=== PATIENT | female | born 1940 | race Caucasian/White ===

== ENCOUNTER → 2016-07-29 | Outpatient (CLI) | payer BC ==
[~2016-07-29] MED LIST: ACET-1138 PO; ASCA500 PO; ASPEC325 PO; CLB100 PO; EZET10TA38 PO; FRRG PO; HYDR12.55 PO; IPRA0.037 NAE; METO50TA7 PO; MULT-506 PO; NCYSR50 PO; RANI300T2 PO; RXC5 PO; TIMO0.2528 OPB
[2016-07-29 10:13] LABS: BASO % 1.1 %; BASO ABS # 0.05 K/uL (0-0.2); COMPLETE YES; EOS % 2.3 %; HEMATOCRIT 45.1 % (37-47); IG% 0.2 %; LYMPH % 38.9 %; LYMPH ABS # 1.83 K/uL (1.2-3.4); MEAN CELL VOLUME 92.4 fL (80-100); MEAN CORPUSCULAR HEMOGLOBIN 30.3 pg (25-34); MEAN CORPUSCULAR HGB CONC 32.8 g/dl (32-36); MEAN PLATELET VOLUME 10.1 fL (7.4-10.4); NEUT % 44.5 %; PLATELET COUNT 195 K/uL (130-400); RED BLOOD COUNT 4.88 M/uL (4.2-5.4); WHITE BLOOD COUNT 4.71 K/uL (4.8-10.8)
[2016-07-29 11:03] LABS: ALT/SGPT 24 U/L (12-78); AST/SGOT 19 U/L (15-37); BLOOD UREA NITROGEN 22 mg/dl (7-18); BUN/CREATININE RATIO 14.6 (10-20); CALCIUM 8.8 mg/dl (8.5-10.1); CARBON DIOXIDE 28 mmol/L (21-32); CHLORIDE 103 mmol/L (98-107); CHOLESTEROL 141 mg/dl (0-200); GLUCOSE 88 mg/dl (70-99); POTASSIUM 3.7 mmol/L (3.5-5.1); SODIUM 142 mmol/L (136-145)
[2016-07-29 11:14] LABS: CHOLESTEROL/HDL RATIO 2.4; HDL CHOLESTEROL 58 mg/dl; LDL CHOLESTEROL CALCULATED 61 mg/dl; TRIGLYCERIDES 108 mg/dl (0-150); VERY LOW DENSITY LIPOPROT CALC 22 mg/dl
== END | disposition home or self-care (01) ==
LOC: C.LAB1850 09:31
PROVIDERS: ATTEND Family Medicine
DX: I25.10 Atherosclerotic heart disease of native coronary artery without angina pectoris (principal); E78.00 Pure hypercholesterolemia, unspecified; N39.46 Mixed incontinence; I10 Essential (primary) hypertension

== ENCOUNTER → 2017-02-11 | Outpatient (CLI) | payer BC ==
[2017-02-11 10:33] LABS: ALT/SGPT 20 U/L (12-78); AST/SGOT 20 U/L (15-37); BLOOD UREA NITROGEN 26 mg/dl (7-18); CALCIUM 9.3 mg/dl (8.5-10.1); CARBON DIOXIDE 30 mmol/L (21-32); CHLORIDE 105 mmol/L (98-107); CHOLESTEROL 113 mg/dl (0-200); GLUCOSE 85 mg/dl (70-99); POTASSIUM 3.8 mmol/L (3.5-5.1); SODIUM 140 mmol/L (136-145)
[2017-02-11 10:36] LABS: CHOLESTEROL/HDL RATIO 2.5; HDL CHOLESTEROL 45 mg/dl; LDL CHOLESTEROL CALCULATED 42 mg/dl; TRIGLYCERIDES 131 mg/dl (0-150); VERY LOW DENSITY LIPOPROT CALC 26 mg/dl
== END | disposition home or self-care (01) ==
LOC: C.LAB1850 09:10
PROVIDERS: ATTEND Internal Medicine Cardiovascular Disease
DX: I25.10 Atherosclerotic heart disease of native coronary artery without angina pectoris (principal); E78.00 Pure hypercholesterolemia, unspecified; I10 Essential (primary) hypertension

== ENCOUNTER → 2017-08-12 | Outpatient (CLI) | payer BC ==
[~2017-08-12] MED LIST changes: -METO50TA7 PO; +METO50TA8 PO
[2017-08-12 12:30] LABS: ALT/SGPT 29 U/L (12-78); AST/SGOT 25 U/L (15-37); BLOOD UREA NITROGEN 20 mg/dl (7-18); CARBON DIOXIDE 27 mmol/L (21-32); CREATININE 1.35 mg/dl (0.60-1.20); GLUCOSE 102 mg/dl (70-99); POTASSIUM 3.9 mmol/L (3.5-5.1); SODIUM 140 mmol/L (136-145)
[2017-08-12 12:34] LABS: CHOLESTEROL 119 mg/dl (0-200); LDL CHOLESTEROL CALCULATED 48 mg/dl
== END | disposition home or self-care (01) ==
LOC: C.LAB1850 10:27
PROVIDERS: ATTEND Internal Medicine Cardiovascular Disease
DX: I25.10 Atherosclerotic heart disease of native coronary artery without angina pectoris (principal); N18.3 Chronic kidney disease, stage 3 (moderate)

== ENCOUNTER → 2017-10-30 | Outpatient (CLI) | payer BC ==
--- NOTE | 2017-10-30 15:51 | DIAGNOSTIC IMAGING REPORT ---
PA CHEST WITH ABDOMINAL SERIES CLINICAL HISTORY: Diarrhea. FINDINGS: A PA chest radiograph is compared to study dated 04/04/2015. Examination is degraded by apical lordotic positioning. The cardiomediastinal silhouette is unremarkable. The lungs and pleural spaces are clear. No pneumothorax is seen. The skeletal structures are osteopenic. The bony thorax is grossly intact. Supine and erect abdominal radiographs are obtained. No prior studies are available for comparison at the time of dictation. There is a nonobstructed abdominal bowel gas pattern. No evidence of intraperitoneal free air is seen. There are no abnormal abdominal calcifications. Phleboliths are noted in the pelvis and along the course of the left gonadal vein. There is moderate lumbosacral spondylosis. The lumbosacral spine and bony pelvis appear intact. IMPRESSION: 1. No active disease in the chest. 2. Nonobstructed abdominal bowel gas pattern. Electronically signed by: Ramon Carrion M.D. 10/30/2017 3:50 PM Dictated Date/Time: 10/30/2017 3:48 PM
[2017-10-30 16:44] LABS: BASO % 0.3 %; BASO ABS # 0.02 K/uL (0-0.2); EOS % 2.5 %; EOS ABS # 0.15 K/uL (0-0.5); HEMATOCRIT 43.7 % (37-47); HEMOGLOBIN 14.4 g/dL (12.0-16.0); IG# 0.01 K/uL (0.00-0.02); LYMPH % 27.1 %; LYMPH ABS # 1.64 K/uL (1.2-3.4); MEAN CELL VOLUME 92.6 fL (80-100); MEAN CORPUSCULAR HEMOGLOBIN 30.5 pg (25-34); MEAN PLATELET VOLUME 9.8 fL (7.4-10.4); MONO % 16.7 %; MONO ABS # 1.01 K/uL (0.11-0.59); NEUT % 53.2 %; NEUT ABS # 3.22 K/uL (1.4-6.5); PLATELET COUNT 184 K/uL (130-400); RED CELL DISTRIBUTION WIDTH SD 47.2 fL (36.4-46.3); WHITE BLOOD COUNT 6.05 K/uL (4.8-10.8)
[2017-10-30 17:14] LABS: ALBUMIN 3.5 gm/dl (3.4-5.0); ALT/SGPT 26 U/L (12-78); AST/SGOT 21 U/L (15-37); BLOOD UREA NITROGEN 19 mg/dl (7-18); CALCIUM 8.9 mg/dl (8.5-10.1); CARBON DIOXIDE 28 mmol/L (21-32); GLUCOSE 83 mg/dl (70-99); POTASSIUM 3.3 mmol/L (3.5-5.1); SODIUM 136 mmol/L (136-145)
[2017-10-30 17:17] LABS: ALKALINE PHOSPHATASE 93 U/L (45-117); TOTAL PROTEIN 7.5 gm/dl (6.4-8.2)
== END | disposition home or self-care (01) ==
LOC: C.LAB1850 15:04
PROVIDERS: ATTEND Nurse Practitioner Family
DX: R19.7 Diarrhea, unspecified (principal)

== ENCOUNTER → 2018-02-17 | Outpatient (CLI) | payer BC | END | disposition home or self-care (01) | LOC: C.LAB1850 08:57 | PROVIDERS: ATTEND Internal Medicine Cardiovascular Disease | DX: I25.10 Atherosclerotic heart disease of native coronary artery without angina pectoris (principal) ==

== ENCOUNTER 2019-03-22 17:42 | Inpatient (IN) ==
[2019-03-22] MEDS ORDERED: ONDANSETRON INJ 2 MG/ML 2 ML VIAL IV STA (18:24)
[2019-03-22] MEDS ORDERED: GI COCKTAIL ED USE PO ONE (18:24)
[2019-03-22] MEDS ORDERED: FAMOTIDINE 20 MG TAB PO ONE (18:24)
--- NOTE | 2019-03-22 18:34 | XRay Report ---
XR chest 1V portable HISTORY: 78 years-old Female Chest Pain acute atypical chest pain COMPARISON: Chest radiograph 06/02/2018 TECHNIQUE: Portable AP view of the chest FINDINGS: Cardiac silhouette is enlarged, unchanged. Mediastinal contours appear stable. No pneumothorax, pleur al effusion, focal airspace consolidation or overt pulmonary edema. Bones of the chest appear grossly intact. IMPRESSION: Cardiomegaly without acute process. The above report was generated using voice recognition software. It may contain grammatical, syntax o r spelling errors. Electronically signed by: Jim Castellanos M.D. 03/22/2019 6:33 PM
[2019-03-22 19:19] LABS: Basophils # (auto) 0.01 K/uL (0-0.2); Basophils % (auto) 0.1 %; Eosinophils # (auto) 0.03 K/uL (0-0.5); Eosinophils % (auto) 0.4 %; Hematocrit (blood only) 40.9 % (37-47); Hemoglobin 13.5 g/dL (12.0-16.0); Immature Granulocytes # (auto) 0.01 K/uL (0.00-0.02); Immature Granulocytes % (auto) 0.1 %; Lymphocytes # (auto) 0.84 K/uL (1.2-3.4); Lymphocytes % (auto) 10.4 %; Mean Corpuscular Hemoglobin 30.5 pg (25-34); Mean Corpuscular Volume 92.5 fL (80-100); Mean Platelet Volume 9.7 fL (7.4-10.4); Monocytes # (auto) 0.88 K/uL (0.11-0.59); Monocytes % (auto) 10.9 %; Neutrophils # (auto) 6.29 K/uL (1.4-6.5); Neutrophils % (auto) 78.1 %; Platelet Count 138 K/uL (130-400); RDW Coefficient of Variation 13.2 % (11.5-14.5); RDW Standard Deviation 44.4 fL (36.4-46.3); Red Blood Count 4.42 M/uL (4.2-5.4); White Blood Count 8.06 K/uL (4.8-10.8)
[2019-03-22 19:38] LABS: INR 1.1 (0.9-1.1); Partial Thromboplastin Ratio 0.9; Partial Thromboplastin Time 23.3 Seconds (21.0-31.0); Prothrombin Time 11.1 Seconds (9.0-12.0)
[2019-03-22 19:40] LABS: Alanine Aminotransferase 292 U/L (12-78); Albumin Level 3.4 gm/dl (3.4-5.0); Aspartate Aminotransferase 464 U/L (15-37); BUN Creatinine Ratio 18.2 (10-20); Blood Urea Nitrogen 23 mg/dl (7-18); Calcium 8.8 mg/dl (8.5-10.1); Carbon Dioxide 29 mmol/L (21-32); Chloride 106 mmol/L (98-107); Creatinine Clr Calc Pharmacy 34.2 ml/min; Est GFR (African American) 46.3; Est GFR (Non-African American) 39.9; Glucose 95 mg/dl (70-99); Potassium 3.9 mmol/L (3.5-5.1); Sodium 141 mmol/L (136-145)
[2019-03-22 19:45] LABS: Alkaline Phosphatase 208 U/L (45-117); Bilirubin,Total 1.7 mg/dl (0.2-1); Globulin 3.5 gm/dl (2.5-4.0); Lipase 12260 U/L (73-393); Total Protein 6.9 gm/dl (6.4-8.2); Troponin I < 0.015 ng/ml (0-0.045)
[2019-03-22] MEDS ORDERED: SODIUM CHLORIDE 0.9% 1000ML 500 ML IV ONE (19:51)
[2019-03-22] MEDS ORDERED: IOVERSOL 100ml IV PRN (20:06)
--- NOTE | 2019-03-22 20:29 | CT Scan Report ---
ABDOMEN AND PELVIS CT WITH IV CONTRAST CT DOSE: 903.74 mGy.cm HISTORY: Acute pancreatitis with nausea pancreatitis, elevated LFTs, nausea TECHNIQUE: Multiaxial CT images of the abdomen and pelvis were performed following the IV administrat ion of 90 cc of Optiray 320, A dose lowering technique was utilized adhering to the principles of [place]. COMPARISON STUDY: CTA of the chest 06/02/2018 FINDINGS: Minimal bibasilar atelectasis. No pneumatosis or pneumoperitoneum. The imaged inferior cardiac chambe rs appear unremarkable. Gallbladder is mildly distended. No cholelithiasis or choledocholithiasis andrea ntified. No biliary or pancreatic ductal dilation identified. The liver, spleen and adrenal glands ar e unremarkable. Mild generalized pancreatic atrophy. Interstitial and peripancreatic edema is noted, greatest about the pancreatic head and neck distribution there is homogeneous enhancement of the panc reas without evidence of pancreatic necrosis or acute peripancreatic fluid collection. Edema/mild bria e fluid tracks along the proximal duodenum, likely reactive. No pancreatic mass lesion identified. Mild cortical thinning of the bilateral kidneys with a few scattered bilateral renal cysts. No renal calculi or hydronephrosis. Urinary bladder is unremarkable. Prominence of the endometrium measures up to 8 mm, greatest in the fundal distribution. No adnexal mass lesion. Calcified plaque of the aorta without aneurysm. No adenopathy. Small hiatal hernia. No bowel obstruction. Colonic diverticulosis wi thout acute diverticulitis. Mild to moderate fecal retention. Normal appendix. Soft tissues are unrem arkable. Degenerative changes of the pelvis, spine and hips. IMPRESSION: 1. Findings compatible with acute uncomplicated pancreatitis. No evidence of pancreatic necrosis or a cute peripancreatic fluid collection. 2. Mild edema/free fluid tracking along the proximal duodenum is likely on a reactive basis. 3. Mild gallbladder distention without cholelithiasis or biliary ductal dilation identified. 4. Colonic diverticulosis without acute diverticulitis. 5. Mild thickening of the endometrium could be correlated with hysteroscopy if of further clinical co ncern. 6. Additional findings as above. Electronically signed by: Jim Castellanos M.D. 03/22/2019 8:28 PM
[2019-03-22] MEDS ORDERED: SODIUM CHLORIDE 0.9% 500 ML IV SCH (20:45)
--- NOTE | 2019-03-22 21:30 | History & Physical Report ---
Date of Service March 22, 2019 Assessment & Plan (1) Pancreatitis: Patient with acute uncomplicated pancreatitis, Lipase = 73448. Patient afebrile, hemodynamically stable. No history of EtOH use. Patient with elevated Tbili and AP as well as LFTs -Check MRCP -Consult GI -Check Lipid panel in AM -Repeat LFTs in AM -LR at 250 mL/hr x 2 liters then 125mL/hr -Morphine PRN -Zofran PRN Present on Admission?: Yes (2) Hypertension: Blood pressure elevated at present -Pain control as above -Continue Toprol -Continue to monitor Present on Admission?: Yes (3) Hypercholesterolemia: Chronic. -Check Lipids in AM -Hold Atorvastatin for now Present on Admission?: Yes (4) CAD (coronary artery disease): Patient denies chest pain -Hold ASA for now for possible ERCP -Hold Statin for now d/t elevated LFTs -Continue Toprol Present on Admission?: Yes (5) Acid reflux: Chronic -Continue Ranitidine Present on Admission?: Yes (6) CKD (chronic kidney disease) stage 3, GFR 30-59 ml/min: BUN and Cr at baseline -Continue to monitor BUN/Cr and electrolytes -Monitor I/Os for adequate UOP F/E/N - Aggressive fluid resuscitation with LR as above, monitor electrolytes and replete as needed, Ca WNL, NPOfor now Ppx - SCDs Code - Full per discussion with patient Dispo - Admit to medical floor Present on Admission?: Yes History of Present Illness Chief Complaint: Abdominal pain Primary Care Provider: Radha Asher MD Ciera Aguirre is a pleasant 78yo C female with history of HTN, HLP, CAD, GERD and CKD presenting with acute pancreatitis. Patient states that her symptoms began acutely at 13:00 as she was driving home from the grocery store. Pain severe, 9/10, epigastric in nature with band-like radiation and through to the back. Associated with nausea and one episode of non-bloody/non-bilious emesis. Patient took a Nitro at home with no relief. Rare EtOH intake. No history of gallstones but has family history of gallbladder disease. Patient had a brief illness last week with nausea/vomiting and diarrhea followed by constipation. Patient also complaining of dark urine and light colored stools as well as itching. No additional complaints at this time. ER Course: Dimasx, Pepcid, Zofran, NSS Allergies Allergy/AdvReac Type Severity Reaction Status Date / Time No Known Allergies Allergy Unknown Verified 03/22/19 19:17 Home Medications Home Medications Medication Instructions Recorded Confirmed Type atorvastatin [Lipitor] 20 mg PO HS 03/23/18 03/22/19 History celecoxib [Celebrex] 200 mg PO QAM 03/23/18 03/22/19 History metoprolol succinate [Toprol XL] 50 mg PO QAM 03/23/18 03/22/19 History solifenacin [Vesicare] 5 mg PO QAM 03/23/18 03/22/19 History timolol 1 drp OPHTHALMIC (EYE) BID 03/23/18 03/22/19 History meclizine 12.5 mg PO TID PRN #20 tab 06/02/18 03/22/19 Rx multivitamin tablet 1 tab PO DAILY 02/17/19 03/22/19 History ranitidine 150 mg capsule 150 mg PO BID cap 02/17/19 03/22/19 History aspirin 81 mg tablet,delayed 81 mg PO QPM #30 tab 03/08/19 03/22/19 History release acetaminophen 1,000 mg PO Q8 PRN 03/22/19 03/22/19 History ipratropium bromide 1 spray INTRANASAL DAILY PRN 03/22/19 03/22/19 History Past Med/Surg History Medical History Bradycardia CHRONIC/ASYMPTOMATIC ON BETA BRADY; BASELINE HR 40'S-50'S CAD (coronary artery disease) NON-OBSTRUCTIVE CKD (chronic kidney disease) STAGE III GERD (gastroesophageal reflux disease) CONTROLLED Glaucoma Hiatal hernia Hx of myocardial infarction 1995- [employer]ICAL [employer] Hyperlipidemia Hypertension Obesity Osteoarthritis Surgical History History of total knee replacement LEFT TKA= 04/11/15= SAB X 2 ATTEMPTS L4/L5 U/S ASSIST + PNB AT [facility] Hx of cardiac cath 1995= NO STENT Hx of colonoscopy Hx of dilation and curettage Hx of oral surgery S/P TEETH EXTRACTIONS Hx of tonsillectomy Hx of tubal ligation Family History Grandmother Family history of diabetes mellitus Father Myocardial infarction Cancer lung cancer Brother Myocardial infarction Cancer bladder CA Other Family hx of colon cancer Social History Preferred Language: [place] Communication Ability: Effective 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 Beliefs That Will Affect Care: None Current Living Situation: Alone Feels Safe at Home: Yes Smoking Status: Never smoker Hx Alcohol Use: Yes Alcohol type: wine Hx Substance Use: No Review of Systems Review of Systems: All systems reviewed & are unremarkable except as noted in HPI & below Physical Exam Physical Exam: General: patient resting comfortably, NAD, non-toxic in appearance, AA&O x 4 Skin: warm, dry, intact, no rashes or lesions, no jaundice HEENT: NC/AT, PERRL, EOMI, anicteric sclera, conjunctiva without injection, external ear normal to inspection and nontender, nares patent, slightly dry mucus membranes, dentition intact, no oropharyngeal lesions, neck supple, trachea midline, no LAD, no thyromegaly, no JVD Heart: +S1/S2, regular, no m/r/g Lungs: equal air entry bilaterally, no rales/rhonchi/wheezes Abd: +BS, soft, tender in RUQ and epigastric area with voluntary guarding, ND, no masses/organomegaly/ascites Ext: warm, 2+ pulses in UE/LE bilaterally, no clubbing/cyanosis or edema Neuro: nonfocal, speech intact, no facial droop, moving all extremities on command with equal strength 5/5 Results & Data Vital Signs (Past 12 Hours) Vital Signs Temp Pulse Pulse Resp BP BP Pulse Ox 03/22/19 20:22 65 12 178/70 H 97 03/22/19 19:34 58 L 18 145/88 H 97 03/22/19 17:45 36.8 C 54 L 18 161/69 H 96 Laboratory Results Lab Results 03/22/19 03/22/19 03/22/19 Range/Units 19:12 19:12 19:12 WBC 8.06 (4.8-10.8) K/uL RBC 4.42 (4.2-5.4) M/uL Hgb 13.5 (12.0-16.0) g/dL Hct 40.9 (37-47) % MCV 92.5 (80-100) fL MCH 30.5 (25-34) pg MCHC 33.0 (32-36) g/dL RDW Std Deviation 44.4 (36.4-46.3) fL RDW Coeff of Valorie 13.2 (11.5-14.5) % Plt Count 138 (130-400) K/uL MPV 9.7 (7.4-10.4) fL Immature Gran % (Auto) 0.1 % Neut % (Auto) 78.1 % Lymph % (Auto) 10.4 % [place] % (Auto) 10.9 % Eos % (Auto) 0.4 % Baso % (Auto) 0.1 % Immature Gran # (Auto) 0.01 (0.00-0.02) K/uL Neut # (Auto) 6.29 (1.4-6.5) K/uL Lymph # (Auto) 0.84 L (1.2-3.4) K/uL [place] # (Auto) 0.88 H (0.11-0.59) K/uL Eos # (Auto) 0.03 (0-0.5) K/uL Baso # (Auto) 0.01 (0-0.2) K/uL PT 11.1 (9.0-12.0) Seconds INR 1.1 (0.9-1.1) APTT 23.3 (21.0-31.0) Seconds PTT Ratio 0.9 Sodium 141 (136-145) mmol/L Potassium 3.9 (3.5-5.1) mmol/L Chloride 106 (98-107) mmol/L Carbon Dioxide 29 (21-32) mmol/L Anion Gap 6.0 (3-11) BUN 23 H (7-18) mg/dl Creatinine 1.29 H (0.6-1.2) mg/dl Est Cr Clr Drug Dosing 34.2 ml/min Est GFR ( Amer) 46.3 Est GFR (Non-Af Amer) 39.9 BUN/Creatinine Ratio 18.2 (10-20) Glucose 95 (70-99) mg/dl Calcium 8.8 (8.5-10.1) mg/dl Total Bilirubin 1.7 H (0.2-1) mg/dl AST 464 H (15-37) U/L ALT 292 H (12-78) U/L Alkaline Phosphatase 208 H (45-117) U/L Troponin I < 0.015 (0-0.045) ng/ml Total Protein 6.9 (6.4-8.2) gm/dl Albumin 3.4 (3.4-5.0) gm/dl Globulin 3.5 (2.5-4.0) gm/dl Albumin/Globulin Ratio 1.0 (0.9-2) Lipase 70623 H (73-393) U/L Diagnostic Findings ABDOMEN AND PELVIS CT WITH IV CONTRAST CT DOSE: 903.74 mGy.cm HISTORY: Acute pancreatitis with nausea pancreatitis, elevated LFTs, nausea TECHNIQUE: Multiaxial CT images of the abdomen and pelvis were performed following the IV administration of 90 cc of Optiray 320, A dose lowering technique was utilized adhering to the principles of ALARA. COMPARISON STUDY: CTA of the chest 06/02/2018 FINDINGS: Minimal bibasilar atelectasis. No pneumatosis or pneumoperitoneum. The imaged inferior cardiac chambers appear unremarkable. Gallbladder is mildly distended. No cholelithiasis or choledocholithiasis identified. No biliary or pancreatic ductal dilation identified. The liver, spleen and adrenal glands are unremarkable. Mild generalized pancreatic atrophy. Interstitial and peripancreatic edema is noted, greatest about the pancreatic head and neck distribution there is homogeneous enhancement of the pancreas without evidence of pancreatic necrosis or acute peripancreatic fluid collection. Edema/mild free fluid tracks along the proximal duodenum, likely reactive. No pancreatic mass lesion identified. Mild cortical thinning of the bilateral kidneys with a few scattered bilateral renal cysts. No renal calculi or hydronephrosis. Urinary bladder is unremarkable. Prominence of the endometrium measures up to 8 mm, greatest in the fundal distribution. No adnexal mass lesion. Calcified plaque of the aorta without aneurysm. No adenopathy. Small hiatal hernia. No bowel obstruction. Colonic diverticulosis without acute diverticulitis. Mild to moderate fecal retention. Normal appendix. Soft tissues are unremarkable. Degenerative changes of the pelvis, spine and hips. IMPRESSION: 1. Findings compatible with acute uncomplicated pancreatitis. No evidence of pancreatic necrosis or acute peripancreatic fluid collection. 2. Mild edema/free fluid tracking along the proximal duodenum is likely on a reactive basis. 3. Mild gallbladder distention without cholelithiasis or biliary ductal dilation identified. 4. Colonic diverticulosis without acute diverticulitis. 5. Mild thickening of the endometrium could be correlated with hysteroscopy if of further clinical concern. 6. Additional findings as above. Electronically signed by: Jim Castellanos M.D. 03/22/2019 8:28 PM Dictated: 03/22/192019 Transcribed: 03/22/192019 XR chest 1V portable HISTORY: 78 years-old Female Chest Pain acute atypical chest pain COMPARISON: Chest radiograph 06/02/2018 TECHNIQUE: Portable AP view of the chest FINDINGS: Cardiac silhouette is enlarged, unchanged. Mediastinal contours appear stable. No pneumothorax, pleural effusion, focal airspace consolidation or overt pulmonary edema. Bones of the chest appear grossly intact. IMPRESSION: Cardiomegaly without acute process. The above report was generated using voice recognition software. It may contain grammatical, syntax or spelling errors. Electronically signed by: Jim Castellanos M.D. 03/22/2019 6:33 PM Dictated: 03/22/19 183 Transcribed: 03/22/19 183 ECG Additional Comments: The study reveals SB at 50bpm, 1st degree AV block with [place] of 222, QRS=82, BXb=100, PACs, no evidence of acute ischemia Code Status & VTE Plan Code Status FULL VTE Prophylaxis Plan VTE Prophylaxis will be ordered: Yes PG Care Time/CCT Total # of Minutes Spent Total Time Spent with Patient: Total time spent is greater than 50% in coordination of care (as documented) at patient's floor/unit and/or counseling patient: (1) Pancreatitis Acute pancreatitis complication: unspecified Chronicity: acute Pancreatitis type: unspecified pancreatitis type Qualified Code(s): K85.90 - Acute pancreatitis without necrosis or infection, unspecified (2) Hypertension Hypertension type: essential hypertension Qualified Code(s): I10 - Essential (primary) hypertension (3) CAD (coronary artery disease) Coronary Disease-Associated Artery/Lesion type: [place] artery [place] vs. transplanted heart: [place] heart Associated angina: without angina Qualified Code(s): I25.10 - Atherosclerotic heart disease of [place] coronary artery without angina pectoris (4) Acid reflux Esophagitis presence: esophagitis presence not specified Qualified Code(s): K21.9 - Gastro-esophageal reflux disease without esophagitis
[2019-03-22] MEDS ORDERED: POLYETHYLENE (MIRALAX) 17 GM PACK PO PRN (22:33)
[2019-03-22] MEDS ORDERED: ONDANSETRON INJ 2 MG/ML 2 ML VIAL IV PRN (22:33)
[2019-03-22] MEDS ORDERED: LACTATED RINGER'S 1,000 ML IV SCH (22:33)
[2019-03-22] MEDS ORDERED: MoRPHine SULFATE 2 MG/ML CARP IV PRN (22:33)
[2019-03-22] MEDS ORDERED: DOCUSATE SODIUM 100 MG CAP PO PRN (22:33)
[2019-03-22] MEDS: VESICARE~ORDER AWAITING ACTION SCH (23:00)
[2019-03-22 23:10] LABS: Magnesium 1.8 mg/dl (1.8-2.4); Phosphorus 3.5 mg/dl (2.5-4.9)
[2019-03-22] MEDS: LACTATED RINGER'S 1,000 ML IV SCH (23:10)
--- NOTE | 2019-03-23 01:22 | Emergency Department Note ---
Entered by Chary Zapata acting as a scribe for Sameer Tucker MD History of Present Illness General Chief complaint: Chest Pain Stated complaint: CHEST PAINS Time Seen by Provider: 03/22/19 18:11 Source: patient History of Present Illness Onset (ago): hour(s) (0900 this morning) Location: chest (center) Radiation: non-radiation Pain Consistency: + constant and + other (worsening (when she took nitro)) Maximum Pain Intensity: 7 Quality: + other (chest pain) Exacerbated By: + movement Associated symptoms: + other (Positive nausea. Negative fever, vomiting, hx of b lood clots in her legs or lungs); no cough The patient is a 78 year old white female w/ PMHx CAD, CKD, glaucoma, hypercholesterolemia, HTN, anemia who presents to the ED w/ CC of chest pain beginning at 0900 this morning. She reports her chest pain is in the center of her chest without radiation and it is constant. She notes she took a nitro which worsened her pain and she became nauseous. She reports that moving worsens her pain. Pt denies a cough, fever, vomiting, hx of blood clots in her legs or lungs. She follows with Dr. Celis, Cardiology. Home Medications Home Medications Medication Instructions Recorded Confirmed Type atorvastatin [Lipitor] 20 mg PO HS 03/23/18 03/22/19 History celecoxib [Celebrex] 200 mg PO QAM 03/23/18 03/22/19 History metoprolol succinate [Toprol XL] 50 mg PO QAM 03/23/18 03/22/19 History solifenacin [Vesicare] 5 mg PO QAM 03/23/18 03/22/19 History timolol 1 drp OPHTHALMIC (EYE) BID 03/23/18 03/22/19 History meclizine 12.5 mg PO TID PRN #20 tab 06/02/18 03/22/19 Rx multivitamin tablet 1 tab PO DAILY 02/17/19 03/22/19 History ranitidine 150 mg capsule 150 mg PO BID cap 02/17/19 03/22/19 History aspirin 81 mg tablet,delayed 81 mg PO QPM #30 tab 03/08/19 03/22/19 History release acetaminophen 1,000 mg PO Q8 PRN 03/22/19 03/22/19 History ipratropium bromide 1 spray INTRANASAL DAILY PRN 03/22/19 03/22/19 History Allergies Allergy/AdvReac Type Severity Reaction Status Date / Time No Known Allergies Allergy Unknown Verified 03/22/19 19:17 Past Med/Surg History Medical History Bradycardia CHRONIC/ASYMPTOMATIC ON BETA BRADY; BASELINE HR 40'S-50'S CAD (coronary artery disease) NON-OBSTRUCTIVE CKD (chronic kidney disease) STAGE III GERD (gastroesophageal reflux disease) CONTROLLED Glaucoma Hiatal hernia Hx of myocardial infarction 1995- MEDICAL MANAGEMENT Hyperlipidemia Hypertension Obesity Osteoarthritis Surgical History History of total knee replacement LEFT TKA= 04/11/15= SAB X 2 ATTEMPTS L4/L5 U/S ASSIST + PNB AT [facility] Hx of cardiac cath 1995= NO STENT Hx of colonoscopy Hx of dilation and curettage Hx of oral surgery S/P TEETH EXTRACTIONS Hx of tonsillectomy Hx of tubal ligation Family History Grandmother Family history of diabetes mellitus Father Myocardial infarction Cancer lung cancer Brother Myocardial infarction Cancer bladder CA Other Family hx of colon cancer Social History Preferred Language: Citizen Of [place] Communication Ability: Effective Cord Splicer Required: No Beliefs That Will Affect Care: None Current Living Situation: Alone Feels Safe at Home: Yes Smoking Status: Never smoker Hx Alcohol Use: Yes Alcohol type: wine Hx Substance Use: No Review of Systems See HPI for pertinent positives & negatives. and A total of 10 systems reviewed and were otherwise negative Physical Exam Vital Signs Vital Signs - 24 hr 03/22/19 17:45 03/22/19 19:34 03/22/19 20:22 Temperature 36.8 C Temperature Source Oral Sepsis Recent Fever Within 48 Hours No Sepsis New/Unexplained Change in Mental Status No Sepsis Action Taken by Nursing No Action Required Pulse Rate 54 L 65 Pulse Rate [Apical] 58 L Pulse Rate from SpO2 Sensor 63 Respiratory Rate 18 18 12 Respiratory Effort / Characteristics Non-Labored Respiratory Depth Normal Blood Pressure 161/69 H 178/70 H Blood Pressure [Right Arm] 145/88 H Blood Pressure Mean 99 106 Blood Pressure Mean [Right Arm] 107 Pulse Oximetry 96 97 97 Oxygen Delivery Method Room Air Room Air Room Air GENERAL: Well appearing, well nourished, NAD, non-toxic. Wearing glasses EYE EXAM: Normal conjunctiva. PERRL, no anisocoria and EOM's grossly intact w/o pain. OROPHARYNX: Moist mucous membranes. Grossly normal dentition. NECK: Supple, no nuchal rigidity, no adenopathy, non-tender. No signs of meningismus. LUNGS: Clear to auscultation. Normal chest wall mechanics. HEART: NSR, no MRG. ABDOMEN: Abdomen soft, epigastric discomfort, normo-active bowel sounds, no masses, no rebound or guarding. BACK: No CVA TTP. SKIN: No rashes and no bruising. UPPER EXTREMITIES: Upper extremities are grossly normal. LOWER EXTREMITIES: No pitting edema. No calf pain. Negative Homans sign NEURO EXAM: A&O x3, cranial nerves II-XII grossly intact, normal speech, moves all 4 extremities on command w/o issue. Course 1813: Past medical records reviewed. The patient was evaluated in room A12. A complete history and physical exam was performed. 1933: I checked on the patient at this time. She just received her medications. 2047: Discussed the patient's case with Dr. Estrada, [facility] Hospitalist. The patient will be evaluated for further management. Administered Medications Lactated Ringer's (Lr) 1,000 mls @ 125 mls/hr IV .Q8H [facility] Stop: 03/23/19 14:59 Last Admin: 03/22/19 23:10 Dose: 125 mls/hr Documented by: [id number] Ioversol (Optiray 320 100ml) 90 ml IV ONCE PRN PRN Reason: Interaction Checking Stop: 03/26/19 20:05 Last Admin: 03/22/19 20:06 Dose: 90 ml Documented by: [id number] Miscellaneous (Order Awaiting Action) 1 ea N/A QS GREGG Stop: 04/21/19 22:59 Last Admin: 03/22/19 23:00 Dose: Not Given Documented by: [id number] Discontinued Medications Al Hydrox/Mg Hydrox/Simethicone () 1 dose PO ONE ONE Stop: 03/22/19 18:25 Last Admin: 03/22/19 19:29 Dose: 1 dose Documented by: [id number] Famotidine (Pepcid) 20 mg PO NOW ONE Stop: 03/22/19 18:25 Last Admin: 03/22/19 19:28 Dose: 20 mg Documented by: [id number] Sodium Chloride (Nss 1000ml) 500 mls @ 999 mls/hr IV .Q31M ONE Stop: 03/22/19 20:21 Last Infusion: 03/22/19 21:17 Dose: 0 mls/hr Documented by: [id number] Admin: 03/22/19 20:46 Dose: 999 mls/hr Documented by: [id number] Sodium Chloride (Nss) 500 mls @ 125 mls/hr IV .Q4H GREGG Stop: 04/21/19 20:44 Last Infusion: 03/22/19 23:01 Dose: 0 mls/hr Documented by: [id number] Admin: 03/22/19 22:05 Dose: 125 mls/hr Documented by: [id number] Ondansetron HCl (Zofran) 4 mg IV NOW STA Stop: 03/22/19 18:25 Last Admin: 03/22/19 19:26 Dose: 4 mg Documented by: [id number] Medical Decision Making Differential Diagnosis Differential diagnosis: Etiologies such as cardiac ischemia, aortic dissection, pulmonary embolism, pneumonia, pneumothorax, musculoskeletal, infections, pericarditis, myocarditis, esophageal rupture, gastrointestinal, as well as others were entertained. Medical Records Attestation: I reviewed the patient's medical records. Home Medications Current Medication List: was personally reviewed by me Laboratory Data Attestation: I reviewed the patient's lab results. Result diagrams: 03/22/19 19:12 03/22/19 19:12 Lab Results 03/22/19 03/22/19 03/22/19 Range/Units 19:12 19:12 19:12 WBC 8.06 (4.8-10.8) K/uL RBC 4.42 (4.2-5.4) M/uL Hgb 13.5 (12.0-16.0) g/dL Hct 40.9 (37-47) % MCV 92.5 (80-100) fL MCH 30.5 (25-34) pg MCHC 33.0 (32-36) g/dL RDW Std Deviation 44.4 (36.4-46.3) fL RDW Coeff of Valorie 13.2 (11.5-14.5) % Plt Count 138 (130-400) K/uL MPV 9.7 (7.4-10.4) fL Immature Gran % (Auto) 0.1 % Neut % (Auto) 78.1 % Lymph % (Auto) 10.4 % [place] % (Auto) 10.9 % Eos % (Auto) 0.4 % Baso % (Auto) 0.1 % Immature Gran # (Auto) 0.01 (0.00-0.02) K/uL Neut # (Auto) 6.29 (1.4-6.5) K/uL Lymph # (Auto) 0.84 L (1.2-3.4) K/uL [place] # (Auto) 0.88 H (0.11-0.59) K/uL Eos # (Auto) 0.03 (0-0.5) K/uL Baso # (Auto) 0.01 (0-0.2) K/uL PT 11.1 (9.0-12.0) Seconds INR 1.1 (0.9-1.1) APTT 23.3 (21.0-31.0) Seconds PTT Ratio 0.9 Sodium 141 (136-145) mmol/L Potassium 3.9 (3.5-5.1) mmol/L Chloride 106 (98-107) mmol/L Carbon Dioxide 29 (21-32) mmol/L Anion Gap 6.0 (3-11) BUN 23 H (7-18) mg/dl Creatinine 1.29 H (0.6-1.2) mg/dl Est Cr Clr Drug Dosing 34.2 ml/min Est GFR ( Amer) 46.3 Est GFR (Non-Af Amer) 39.9 BUN/Creatinine Ratio 18.2 (10-20) Glucose 95 (70-99) mg/dl Calcium 8.8 (8.5-10.1) mg/dl Phosphorus 3.5 (2.5-4.9) mg/dl Magnesium 1.8 (1.8-2.4) mg/dl Total Bilirubin 1.7 H (0.2-1) mg/dl AST 464 H (15-37) U/L ALT 292 H (12-78) U/L Alkaline Phosphatase 208 H (45-117) U/L Troponin I < 0.015 (0-0.045) ng/ml Total Protein 6.9 (6.4-8.2) gm/dl Albumin 3.4 (3.4-5.0) gm/dl Globulin 3.5 (2.5-4.0) gm/dl Albumin/Globulin Ratio 1.0 (0.9-2) Lipase 02026 H (73-393) U/L Imaging Data Radiologist's Impression: Radiology results as stated below per my review and the radiologist's interpretation: XR chest 1V portable HISTORY: 78 years-old Female Chest Pain acute atypical chest pain COMPARISON: Chest radiograph 06/02/2018 TECHNIQUE: Portable AP view of the chest FINDINGS: Cardiac silhouette is enlarged, unchanged. Mediastinal contours appear stable. No pneumothorax, pleural effusion, focal airspace consolidation or overt pulmonary edema. Bones of the chest appear grossly intact. IMPRESSION: Cardiomegaly without acute process. The above report was generated using voice recognition software. It may contain grammatical, syntax or spelling errors. Electronically signed by: Jim Castellanos M.D. 03/22/2019 6:33 PM ABDOMEN AND PELVIS CT WITH IV CONTRAST CT DOSE: 903.74 mGy.cm HISTORY: Acute pancreatitis with nausea pancreatitis, elevated LFTs, nausea TECHNIQUE: Multiaxial CT images of the abdomen and pelvis were performed following the IV administration of 90 cc of Optiray 320, A dose lowering technique was utilized adhering to the principles of ALARA. COMPARISON STUDY: CTA of the chest 06/02/2018 FINDINGS: Minimal bibasilar atelectasis. No pneumatosis or pneumoperitoneum. The imaged inferior cardiac chambers appear unremarkable. Gallbladder is mildly distended. No cholelithiasis or choledocholithiasis identified. No biliary or pancreatic ductal dilation identified. The liver, spleen and adrenal glands are unremarkable. Mild generalized pancreatic atrophy. Interstitial and peripancreatic edema is noted, greatest about the pancreatic head and neck distribution there is homogeneous enhancement of the pancreas without evidence of pancreatic necrosis or acute peripancreatic fluid collection. Edema/mild free fluid tracks along the proximal duodenum, likely reactive. No pancreatic mass lesion identified. Mild cortical thinning of the bilateral kidneys with a few scattered bilateral renal cysts. No renal calculi or hydronephrosis. Urinary bladder is unremarkable. Prominence of the endometrium measures up to 8 mm, greatest in the fundal distribution. No adnexal mass lesion. Calcified plaque of the aorta without aneurysm. No adenopathy. Small hiatal hernia. No bowel obstruction. Colonic diverticulosis without acute diverticulitis. Mild to moderate fecal retention. Normal appendix. Soft tissues are unremarkable. Degenerative changes of the pelvis, spine and hips. IMPRESSION: 1. Findings compatible with acute uncomplicated pancreatitis. No evidence of pancreatic necrosis or acute peripancreatic fluid collection. 2. Mild edema/free fluid tracking along the proximal duodenum is likely on a aishwarya ctive basis. 3. Mild gallbladder distention without cholelithiasis or biliary ductal dilation identified. 4. Colonic diverticulosis without acute diverticulitis. 5. Mild thickening of the endometrium could be correlated with hysteroscopy if of further clinical concern. 6. Additional findings as above. Electronically signed by: Jim Castellanos M.D. 03/22/2019 8:28 PM ECG Data Attestation: I personally reviewed and interpreted this ECG as follows: Indication: chest pain Rate (beats per minute): 50 Rhythm: sinus bradycardia Findings: + other (normal axis) and + 1st degree AV block; no acute ischemic change Blood Pressure Blood Pressure Findings: Elevated blood pressure Blood Pressure Disposition: further management by hospitalist MDM Narrative The patient is a 78 year old white female w/ PMHx CAD, CKD, glaucoma, hypercholesterolemia, HTN, anemia who presents to the ED w/ CC of chest pain beginning at 0900 this morning. Patient was seen and evaluated the bedside. Patient denies to see Dr. hood on a regular basis for known history of CAD GERD hypertension hyperlipidemia. The patient states that this began around 1 PM. It is been constant epigastric and unrelenting. The patient did have some nausea. The patient did try nitro but this only made it worse. Patient does not complain of exertional or positional changes. The patient denies any shortness of breath lower extremity swelling. Patient did a blood work completed along with an EKG troponin chest x-ray. Patient's EKG is unremarkable. Patient's LFTs concerning for elevated lipase and LFTs. Patient did have CT abdomen pelvis completed. The patient does have uncomplicated pancreatitis. I did speak with the on-call hospitalist who agreed to further evaluate treat the patient. Patient was made n.p.o. and started on fluids. Impression & Plan Pancreatitis, Abdominal pain Discharge Plan Visit Data *Final* Discharge Date/Time: 03/22/19 22:25 Chief Complaint: Chest Pain Stated Complaint: CHEST PAINS ED Provider: Sameer Tucker Discharge Problem: Pancreatitis, Abdominal pain Patient Disposition: Admitted As Inpatient Discharge Instructions Interventions: ED Discharge Assessment Last Done: 03/22/19 22:25 Discharge Problem: Pancreatitis Qualifiers: Chronicity: acute Pancreatitis type: unspecified pancreatitis type Acute pancreatitis complication: unspecified Qualified Code(s): K85.90 - Acute pancreatitis without necrosis or infection, unspecified Abdominal pain Qualifiers: Abdominal location: epigastric Qualified Code(s): R10.13 - Epigastric pain The scribe's documentation has been prepared under my direction and personally reviewed by me in its entirety. I confirm that the note above accurately reflects all work, treatment, procedures, and medical decision making performed by me.
[2019-03-23 06:23] LABS: Basophils # (auto) 0.01 K/uL (0-0.2); Basophils % (auto) 0.1 %; Hematocrit (blood only) 38.1 % (37-47); Hemoglobin 12.8 g/dL (12.0-16.0); Immature Granulocytes # (auto) 0.02 K/uL (0.00-0.02); Immature Granulocytes % (auto) 0.2 %; Lymphocytes # (auto) 1.17 K/uL (1.2-3.4); Lymphocytes % (auto) 13.4 %; Mean Corpuscular Hemoglobin 31.4 pg (25-34); Mean Corpuscular Hgb Conc 33.6 g/dL (32-36); Mean Corpuscular Volume 93.4 fL (80-100); Mean Platelet Volume 10.3 fL (7.4-10.4); Monocytes # (auto) 0.97 K/uL (0.11-0.59); Monocytes % (auto) 11.1 %; Neutrophils # (auto) 6.58 K/uL (1.4-6.5); Neutrophils % (auto) 75.2 %; Platelet Count 147 K/uL (130-400); RDW Coefficient of Variation 13.6 % (11.5-14.5); RDW Standard Deviation 46.2 fL (36.4-46.3); Red Blood Count 4.08 M/uL (4.2-5.4); White Blood Count 8.75 K/uL (4.8-10.8)
[2019-03-23 06:56] LABS: BUN Creatinine Ratio 15.7 (10-20); Calcium 8.9 mg/dl (8.5-10.1); Creatinine Clr Calc Pharmacy 34.8 ml/min; Est GFR (African American) 47.1; Est GFR (Non-African American) 40.7
--- NOTE | 2019-03-23 07:00 | Magnetic Resonance Report ---
MRCP CLINICAL HISTORY: ?gallstone pancreatitis TECHNIQUE: Utilizing a 1.5 Michelle magnet and dedicated coil, multiplanar, multiecho imaging of the [facility] abdomen was performed utilizing heavily T2 weighted pulsing sequences without IV contrast. COMPARISON STUDY: CT of the abdomen and pelvis March 22, 2019. FINDINGS: There is peripancreatic infiltration and fluid as well as fluid adjacent to the duodenum. T here is no biliary ductal dilatation. The common bile duct measures 6 mm in caliber. There is slight dilatation of the distal pancreatic duct which measures 4 mm in caliber. No common bile duct calculi are identified. No stones are identified within the gallbladder. The gallbladder is moderately disten ded. There is no pericholecystic fluid. No gallbladder wall thickening is identified on this examinat ion. Unenhanced images of the liver, spleen, adrenal glands and kidneys are unremarkable. There are b ilateral parapelvic cysts. The heart is enlarged. IMPRESSION: 1. Peripancreatic fluid and infiltration as well as fluid adjacent to the duodenum consistent with ac eduardo pancreatitis. 2. No biliary ductal dilatation. No common bile duct calculi. 3. Moderate gallbladder distention. No gallstones identified. Electronically signed by: Orlando Raygoza M.D. 03/23/2019 6:59 AM
[2019-03-23] MEDS ORDERED: INFLUENZA ADMINISTRATION CHARGE ONE (08:00)
[2019-03-23] MEDS ORDERED: INFLUENZA VIRUS QUAD VACCINE 0.5 ML SYR IM ONE (08:00)
[2019-03-23] MEDS: VESICARE~ORDER AWAITING ACTION SCH (08:06)
[2019-03-23] MEDS: LACTATED RINGER'S 1,000 ML IV SCH (08:24)
[2019-03-23] MEDS ORDERED: TIMOLOL MALEATE 0.5% OP SOLN 5 ML BTL OP SCH (09:00)
[2019-03-23] MEDS ORDERED: METOPROLOL SUCC 50MG EXT REL TAB PO SCH (09:00)
[2019-03-23 09:15] LABS: Bilirubin Direct 0.7 mg/dl (0-0.2); Bilirubin,Total 1.9 mg/dl (0.2-1); Total Protein 6.3 gm/dl (6.4-8.2)
--- NOTE | 2019-03-23 09:53 | Gastrointestinal Consultation ---
Date of Consultation March 23, 2019 Assessment & Plan (1) Pancreatitis: Pancreatitis seen on CT & MRCP without evidence of choledocholithiasis. Lipase 12,260. LFTs elevated to T bili of 1.7, AAST 464, ALT 292, Alk phos 208. Patient's symptoms are improving. No alcohol use. Recent viral infection. -Continue IV hydration with lactated ringers at 125 ml/hr -Follow LFTs -Check Triglycerides -Recommend early re-feeding when patient is able (low-fat, low-cholesterol diet) -Pain control per primary team -IV antiemetics if needed for nausea Thank you for allowing us to participate in the care of this patient. If you should have any further questions or concerns, do not hesitate to contact us at extension [phone] or [phone]. Present on Admission?: Yes Supervising Physician Co-Signing Physician Notes I personally evaluated the patient and agree with the findings as documented by Ana Paula Costa, [id number] Exam: abd: soft, mild epigastric tenderness, nd, no hsm History of Present Illness Attending Physician: Sadia Odell MD History of Present Illness Patient is a 78 yo female with anemia, CAD, CKD3, chronic constipation, chronic rhinitis, glaucoma, HLD, HTN, OA, bilateral SNHL, urinary incontinence and recent viral infection who presents to the hospital with abdominal pain. Lipase elevation is presently 12,260. CT & MRCP show pancreatitis without evidence of choledocholithiasis. LFTs are elevated with a T bili of 1.7, AST of 464, ALT 292, Alk phos 208. The patient was treated supportively, kept NPO, given IV fluids (LR), & pain medications. She reports resolution of her abdominal pain. She denies an appetite. She denies alcohol abuse. She has taken cholesterol medication for years. She denies family history of pancreatic issues. She denies fevers or chills at present. Overall, she is quite improved from the time of presentation. Allergies Allergy/AdvReac Type Severity Reaction Status Date / Time No Known Allergies Allergy Unknown Verified 03/22/19 19:17 Home Medications Home Medications Medication Instructions Recorded Confirmed Type atorvastatin [Lipitor] 20 mg PO HS 03/23/18 03/22/19 History celecoxib [Celebrex] 200 mg PO QAM 03/23/18 03/22/19 History metoprolol succinate [Toprol XL] 50 mg PO QAM 03/23/18 03/22/19 History solifenacin [Vesicare] 5 mg PO QAM 03/23/18 03/22/19 History timolol 1 drp OPHTHALMIC (EYE) BID 03/23/18 03/22/19 History meclizine 12.5 mg PO TID PRN #20 tab 06/02/18 03/22/19 Rx multivitamin tablet 1 tab PO DAILY 02/17/19 03/22/19 History ranitidine 150 mg capsule 150 mg PO BID cap 02/17/19 03/22/19 History aspirin 81 mg tablet,delayed 81 mg PO QPM #30 tab 03/08/19 03/22/19 History release acetaminophen 1,000 mg PO Q8 PRN 03/22/19 03/22/19 History ipratropium bromide 1 spray INTRANASAL DAILY PRN 03/22/19 03/22/19 History Patient History Medical History Bradycardia CHRONIC/ASYMPTOMATIC ON BETA BRADY; BASELINE HR 40'S-50'S CAD (coronary artery disease) NON-OBSTRUCTIVE CKD (chronic kidney disease) STAGE III GERD (gastroesophageal reflux disease) CONTROLLED Glaucoma Hiatal hernia Hx of myocardial infarction 1995- MEDICAL MANAGEMENT Hyperlipidemia Hypertension Obesity Osteoarthritis Surgical History History of total knee replacement LEFT TKA= 04/11/15= SAB X 2 ATTEMPTS L4/L5 U/S ASSIST + PNB AT [facility] Hx of cardiac cath 1995= NO STENT Hx of colonoscopy Hx of dilation and curettage Hx of oral surgery S/P TEETH EXTRACTIONS Hx of tonsillectomy Hx of tubal ligation Family History Grandmother Family history of diabetes mellitus Father Myocardial infarction Cancer lung cancer Brother Myocardial infarction Cancer bladder CA Other Family hx of colon cancer Social History Preferred Language: [place] Communication Ability: Effective Stable Manager Required: No Beliefs That Will Affect Care: None Current Living Situation: Alone Feels Safe at Home: Yes Smoking Status: Never smoker Hx Alcohol Use: Yes Alcohol type: wine Hx Substance Use: No Review of Systems Constitutional: no fever and no chills Eyes: no acute issues Ear, Nose, Mouth, Throat: no acute issues Respiratory: no cough and no dyspnea Cardiovascular: no chest pain Gastrointestinal: no abdominal pain, no bloating, no nausea and no vomiting decreased appetite Musculoskeletal: + joint pain Integumentary: no acute issues Neurologic: no dizziness Psychiatric: no acute complaints Endocrine: no fatigue Physical Exam Constitutional: WD/WN, vitals as above Eyes: PERRL, conjunctivae normal, anicteric sclerae ENMT: external ear and nose normal, oropharynx normal Neck: normal visual inspection Respiratory: normal respiratory effort, lungs clear to auscultation Cardiovascular: Rate/Rhythm: regular rate and regular rhythm Gastrointestinal (Abdomen): normal bowel sounds, soft, nontender, no hepatosplenomegaly Musculoskeletal: no cyanosis or clubbing Skin: no rashes, warm and dry Neurologic: normal speech Psychiatric: A+Ox3, euthymic affect Results & Data Vital Signs (Past 12 Hours) Vital Signs Temp Pulse Resp BP Pulse Ox 03/23/19 08:29 56 L 03/23/19 07:27 36.8 C 58 L 14 124/77 94 03/22/19 22:34 36.8 C 58 L 16 147/77 H 97 03/22/19 22:07 58 L 18 172/71 H 97 PG Care Time/CCT Total # of Minutes Spent Total Time Spent with Patient: Total time spent is greater than 50% in coordination of care (as documented) at patient's floor/unit and/or counseling patient: (1) Pancreatitis Acute pancreatitis complication: unspecified Chronicity: acute Pancreatitis type: unspecified pancreatitis type Qualified Code(s): K85.90 - Acute pancreatitis without necrosis or infection, unspecified
[2019-03-23] MEDS ORDERED: ACETAMINOPHEN 325 MG TAB PO STA (10:14)
[2019-03-23 10:45] LABS: Chol HDL Ratio 2; Cholesterol 104 mg/dl (0-200); HDL Cholesterol 48 mg/dl; LDL Cholesterol Calculated 46 mg/dl; Triglycerides 48 mg/dl (0-150); VLDL Cholesterol 10 mg/dl
--- NOTE | 2019-03-23 17:52 | Discharge Summary ---
Date of Service March 23, 2019 Admission HPI Per Admitting Provider Ciera Aguirre is a pleasant 78yo C female with history of HTN, HLP, CAD, GERD and CKD presenting with acute pancreatitis. Patient states that her symptoms began acutely at 13:00 as she was driving home from the grocery store. Pain severe, 9/10, epigastric in nature with band-like radiation and through to the back. Associated with nausea and one episode of non-bloody/non-bilious emesis. Patient took a Nitro at home with no relief. Rare EtOH intake. No history of gallstones but has family history of gallbladder disease. Patient had a brief illness last week with nausea/vomiting and diarrhea followed by constipation. Patient also complaining of dark urine and light colored stools as well as itching. No additional complaints at this time. ER Course: Maalox, Pepcid, Zofran, NSS Admission Exam Per Admitting Provider General: patient resting comfortably, NAD, non-toxic in appearance, AA&O x 4 Skin: warm, dry, intact, no rashes or lesions, no jaundice HEENT: NC/AT, PERRL, EOMI, anicteric sclera, conjunctiva without injection, external ear normal to inspection and nontender, nares patent, slightly dry mucus membranes, dentition intact, no oropharyngeal lesions, neck supple, trachea midline, no LAD, no thyromegaly, no JVD Heart: +S1/S2, regular, no m/r/g Lungs: equal air entry bilaterally, no rales/rhonchi/wheezes Abd: +BS, soft, tender in RUQ and epigastric area with voluntary guarding, ND, no masses/organomegaly/ascites Ext: warm, 2+ pulses in UE/LE bilaterally, no clubbing/cyanosis or edema Neuro: nonfocal, speech intact, no facial droop, moving all extremities on command with equal strength 5/5 Principal Diagnosis Acute pancreatitis Discharge Exam General: A&Ox3. NAD. Cooperative. HEENT: Atraumatic, normocephalic. Pulm: CTAB A&P. -wheezes, -rales, -rhonchi. Symmetrical chest rise. No increase in work of breathing. No respiratory distress. Cardiac: RRR, -mrg. Radial pulses intact and symmetrical. Abdominal: Nontender, nondistended, soft. BS present. Discharge Data Allergies Allergy/AdvReac Type Severity Reaction Status Date / Time No Known Allergies Allergy Unknown Verified 03/22/19 19:17 Consultations 03/22/19 20:43 ED Decision to Admit Stat 03/22/19 22:49 Consult Gastroenterology Routine Ordered Studies 03/22/19 19:48 CT abd pelvis IV con only Stat 03/23/19 00:13 MR MRCP Urgent Hospital Course (1) Pancreatitis: Ciera Aguirre is a 78-year-old female with a past medical history of coronary artery disease, chronic kidney disease stage III, anemia, hypertension, and sensorineural hearing loss of both ears who presented with 1 day of acute epigastric pain and who was admitted for acute pancreatitis. Acute pancreatitis 2/2 passed gallstone versus viral enteritis Patient presented with 1 day of sudden onset 9/10 epigastric pain with radiation through to the back and which was associated with nausea and one episode of nonbloody nonbilious emesis. She did not have any prior history of gallbladder or pancreatic disease. She had rare sporadic alcohol intake, and no history of hyperlipidemia. On admission she had a elevated lipase to > 12 K, increased transaminases, incr eased bilirubin, and increased alkaline phosphatase. She did not have a leukocytosis or fever. Abdominal and pelvic CT showed uncomplicated acute pancreatitis without evidence of pancreatic necrosis or peripancreatic fluid. She had some reactive duodenal edema/fluid. Mild gallbladder distention without cholelithiasis or biliary ductal dilation was identified. Follow-up MRCP showed peripancreatic fluid consistent with acute pancreatitis but no biliary ductal dilation, common duct calculi, or gallstones although did note moderate gallbladder distention without wall thickening. Patient was made n.p.o. and given lactated Ringer's IV fluid maintenance with morphine for pain control and Zofran for nausea. She did well overnight and had complete resolution of her symptoms by the next morning, and tolerated a regular diet well prior to discharge. Her gallbladder distention and metabolic profile raise suspicion for a gallstone which passed prior to imaging, however could also be due to viral infection. Her calcium was normal throughout admission. Her lipids were well controlled, further discussed below. No antibiotics were indicated. She was discharged to follow-up with her primary care physician, and was not in pain at time of discharge. She should have a repeat liver profile in 2 to 4 weeks to ensure normalization of her transaminases. Her atorvastatin was mistakenly listed as continued on discharge paperwork. She was contacted by phone and instructed to stop taking her atorvastatin until follow-up with her primary care physician and verification that her transaminases have normalized. Chronic kidney disease Patient has a history of chronic kidney disease stage III with a baseline creatinine which appeared to be approximately 1.3. Her creatinine was at basel ine on admission, and she did not show any signs of TESS. She had good urine output on day of discharge. No changes were made to her renal medications. Hypertension Patient has a history of hypertension treated with metoprolol. She was hypertensive on admit, hypertension improved with pain control. Her prior to admission metoprolol was continued throughout admission. Coronary artery disease with hypercholesterolemia Patient had a history of coronary artery disease and hyper cholesterolemia. Her atorvastatin was held due to increased LFTs, and her prior to admission aspirin was held in case ERCP was required. Her Toprol was continued as above. She had a lipid panel performed which showed good cholesterol control with cholesterol 104 LDL 46 HDL 48 and triglycerides 48. No change was made to her lipid medications, and this was felt to be unlikely to her acute pancreatitis. Acid reflux Ranitidine was continued for acid reflux. She did not have any signs or symptoms of acid reflux on day of discharge. DVT prophylaxis: SCDs were used for DVT prophylaxis. There is no increased suspicion for DVT or PE during admission. (2) CAD (coronary artery disease): (3) CKD (chronic kidney disease) stage 3, GFR 30-59 ml/min: (4) Acid reflux: (5) Anemia: (6) Abdominal pain: (7) History of colonic polyps: (8) Sensorineural hearing loss (SNHL) of both ears: (9) Hypertension: Total Time Total Time Spent Total Time Spent (In Minutes): 30 Discharge Plan Discharge Items Patient Disposition: Home - Self-Care Reason For Visit: PANCREATITIS Discharge Diagnosis: Pancreatitis Condition on Discharge: Good Activity: Per Instructions section Non-emergency contact: Primary Care Provider Call non-emergency contact if: your symptoms worsen Follow-up/Referrals: Radha Asher MD [Primary Care Provider] - 03/29/19 10:15 am (Please, follow up with Dr. Asher on FridayMarch 29 at 10:15 am. *If you need to change this appointment, call the office at [phone].) Diet: Low Fat Addtl Attending Provider Instructions: What is pancreatitis? Pancreatitis is a condition that can cause severe belly pain. The pancreas is an organ that makes hormones and juices that help break down food. Pancreatitis is the term for when this organ gets irritated or swollen. Most people get over pancreatitis without any long-lasting effects. But a few people get very sick. What causes pancreatitis? There are many causes of pancreatitis. But most cases are caused by gallstones. We checked you for gallstones, by a MRCP, at test that takes a picture of the gallbladder. This test came back negative. It is possible that your pancreatitis is secondary to recent viral illness. How do I treat pancreatitis? At the time of discharge you were tolerating a normal diet. We recommend that you eat a simple diet that is lower in fats and meats for at least one week. In addition, no alcohol. Drink water for hydration, at least 8-10, 8 ounce glasses. We also recommend following up with your primary care doctor within the next 5- 7 days. Pending Studies at Discharge: No Stand-Alone Forms: My [facility] Medications and DC Order Prescriptions: Continued multivitamin [One Daily Essential] tablet 1 tab PO DAILY RF: 0 aspirin 81 mg tablet,delayed release (DR/EC) 81 mg PO QPM Qty: 30 RF: 0 celecoxib [Celebrex] 200 mg Capsule 200 mg PO QAM RF: 0 atorvastatin [Lipitor] 20 mg Tablet 20 mg PO HS RF: 0 metoprolol succinate [Toprol XL] 50 mg Tablet Extended Release 24 Hr 50 mg PO QAM RF: 0 timolol 0.5 % Drops 1 drp OPHTHALMIC (EYE) BID RF: 0 solifenacin [Vesicare] 5 mg Tablet 5 mg PO QAM RF: 0 ranitidine HCl 150 mg capsule 150 mg PO BID RF: 0 meclizine 12.5 mg tablet 12.5 mg PO TID PRN (Reason: dizziness) Qty: 20 RF: 0 acetaminophen 500 mg Tablet 1,000 mg PO Q8 PRN (Reason: Pain) RF: 0 ipratropium bromide 0.03 % Kiefer,Non-Aerosol 1 spray INTRANASAL DAILY PRN (Reason: Nasal Congestion) RF: 0 Discharge Orders: Discharge Order (Routine); Ordered 03/23/19 Ordered By: Sukumar Edwards Admission Data Admit Date/Time: 03/22/19 21:27 Attending Provider: Sadia Odell Admit Provider: Meghna Estrada Primary Care Provider: Radha Asher Other Providers: Meghna Estrada ; Cristian Wayne ; Alyson Chapman ; Ana Paula Costa ; Molina Neves ; Sukumar Edwards Other Interventions: Discharge Summary Assessment (RN) Last Done: 03/23/19 15:50 DC Date/Time DO NOT enter until pt leaves facility: 03/23/19 16:10 Supervising Physician Co-Signing Physician Notes Resident Physician Supervision Note: I independently interviewed and examined the patient and verified the mckeon history and physical, reviewed labs and image studies, discussed the case with the resident Dr. Edwards and agree with the findings and care plan. Resident Activity Tracking Resident Involvement: Resident Care Provided Care Provided: Adult Hospital Medicine
== END 2019-03-23 16:10 | disposition home or self-care (01) | DRG 440 ==
LOC: ED 17:42 → 4W 21:27 → SUATTDRO 21:27 → 4W 22:25

== ENCOUNTER 2021-08-20 20:12 | Observation (INO) ==
--- NOTE | 2021-08-20 20:40 | Emergency Department Note ---
Impression & Plan Syncope, History of coronary artery bypass graft, Nausea ED Provider Note NAME: JANEL MALIK AGE: 80 SEX: F : 1940 ARRIVES VIA: Walk-In INFORMANT: Patient, ED PROVIDER(S): Sameer Tucker MD Chief Complaint: Syncope HPI: Patient presents after syncopal event that occurred just prior to arrival. Patient denies any head or neck pain but states that she had a wave of nausea, over in her which caused her to pass out. Patient denies any vomiting chest pains or shortness of breath. Patient denies any recent trauma and denies bowel or bladder incontinence. No reported seizure activity but this was unwitnessed. The patient denies any tongue biting. The patient has no prior history of seizure. Patient denies any focal weakness but does feel generalizability weak. Patient denies any slurred speech aphasia or facial droop. Patient does feel dizzy but denies any vertiginous symptoms. Patient states that this just occurred prior to arrival. The patient is unsure as to the total time that she syncopized. Patient feels slightly improved compared to prior but still feels weak and dizzy. Patient still has associated nausea. Patient is vaccinated for COVID-19 denies any alcohol tobacco or drug use. Patient states she has eaten and has some later drink today. The patient denies any history of diabetes. Patient does not take insulin. ROS: See HPI for pertinent positives and negatives. A total of 10 systems were reviewed and otherwise negative. Past medical history: See below Surgical history: See below Social history: See below Physical Exam: GENERAL: NAD, wearing a mask, non-toxic. EYE EXAM: Normal conjunctiva. PERRL, no anisocoria and EOM's grossly intact w/o pain. NECK: Supple, no nuchal rigidity, no adenopathy, non-tender. No signs of meningismus. LUNGS: Clear to auscultation. Normal chest wall mechanics. HEART: Bradycardic and regular, no MRG. ABDOMEN: Abdomen soft, non-tender, normo-active bowel sounds, no masses, no rebound or guarding. BACK: No CVA TTP. SKIN: No rashes and no bruising. UPPER EXTREMITIES: Upper extremities are grossly normal. LOWER EXTREMITIES: Grossly normal, no edema. NEURO EXAM: A&O x3, cranial nerves II-XII grossly intact, normal speech, moves all 4 extremities on command w/o issue. Differential diagnoses: Infection, dehydration, metabolic abnormality, hypo/hyperglycemia, electrolyte disturbance, anemia, hypoxia, cardiac sources, intracerebral event, toxicologic, neurologic, as well as other pathologies. Course: Patient was seen and evaluated the bedside. Full history physical exam was performed. EKG interpreted by me Sinus bradycardia with first-degree AV block, rate of 56, prolonged SD, normal QRS and normal axis, Q waves anteriorly. No obvious ST elevations or depressions. T wave flattening in aVL but no T WI. Q waves not may be new from comparison EKG completed March 22, 2019. Patient's bradycardia and first- degree AV block were present at that time. Imaging Studies: See Below Cardiac monitoring: An order was placed for continuous cardiac monitoring. The monitor shows a rate of 55 with bradycardic and regular rhythm. MDM: Patient was seen due to concern for syncopal event. BSG was obtained after her history and physical exam. This is normal at 98. Blood work was obtained along with an EKG troponin and chest x-ray. The patient was treated with IV fluids and antiemetics. Upon subsequent reassessment the patient states that she did feel improved. Patient may have new Q waves anteriorly. No obvious ST elevations or depressions.Patient has a normal white count H&H and platelet count. Covid negative. Blood work is fairly unremarkable. Troponin negative. Given the patient's syncope and history of CABG believe the patient would be best served with an observation and monitor on telemetry. I did speak with the on-call hospitalist Dr. Estrada and the patient was admitted to the medicine service. Past Med/Surg History Medical History Acid reflux Bradycardia CHRONIC/ASYMPTOMATIC ON BETA BRADY; BASELINE HR 40'S-50'S CAD (coronary artery disease) RCA 75% by cath 1996 Chronic constipation CKD (chronic kidney disease) STAGE III Environmental allergies GERD (gastroesophageal reflux disease) CONTROLLED Glaucoma Hiatal hernia Hx of myocardial infarction 1995- MEDICAL [employer]NAGEMENT Hyperlipidemia Hypertension Obesity Osteoarthritis Pancreatitis Paresthesia of lower extremity Sensorineural hearing loss (SNHL) of both ears Speech impairment PT REPORTS SOMETIMES HAS TROUBLE FINDING WORDS, STARTED 1 YR AGO - HAS DISCUSSED WITH PCP Spinal stenosis, 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 RCA 75%. Hx of colonoscopy Hx of dilation and curettage Hx of oral surgery S/P TEETH EXTRACTIONS Hx of tonsillectomy Hx of tubal ligation S/P laparoscopic cholecystectomy (06/09/19) Laparoscopic Cholecystectomy with Cholangiogram Dr. 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 And 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 Required: No Beliefs That Will Affect Care: None marital status: / Current Living Situation: Alone current occupational status: retired Other Information That Helps Us Care for You: No Feels Safe at Home: Yes Safety Concerns: Feels Safe At This Time Childhood Exposure to Second-Hand Smoke: No Dental Care, Regularly: No Physical Activity Frequency: 1-2 Times per Week Seatbelt Use: always Sunscreen Use: Yes Assistive Devices: Cane Allergies Allergies Allergy/AdvReac Type Severity Reaction Status Date / Time No Known Drug Allergies Allergy Verified 08/20/21 21:34 Home Meds Home Medications Medication Instructions Recorded Confirmed multivitamin (One Daily Essential) 1 tab PO DAILY 02/17/19 08/20/21 aspirin 81 mg tablet,delayed 81 mg PO QPM #30 tab 03/08/19 08/20/21 release nystatin-triamcinolone 100,000 1 appln TOP TID PRN gm 03/21/20 08/20/21 unit/g-0.1 % topical cream Previous Rx's Medication Instructions Recorded meclizine 12.5 mg tablet 12.5 mg PO TID PRN #20 tab 06/02/18 timolol 0.5 % eye drops 1 drp OPHTHALMIC (EYE) BID #45 ml 08/20/19 atorvastatin 20 mg tablet (Lipitor) 20 mg PO HS #90 tab 04/18/20 ipratropium bromide 21 mcg (0.03 1 spray INTRANASAL DAILY PRN #90 ml 12/12/20 %) nasal spray metoprolol succinate 50 mg 50 mg PO QAM #90 tab 03/06/21 tablet,extended release 24 hr (Toprol XL) celecoxib 200 mg capsule (Celebrex) 200 mg PO QAM #90 cap 04/10/21 famotidine 40 mg tablet 40 mg PO DAILY #90 tab 07/18/21 solifenacin 5 mg tablet (Vesicare) 5 mg PO QAM #90 tab 07/18/21 Results & Data (ED) Vital Signs Vital Signs - 24 hr 08/20/21 20:15 08/20/21 21:10 08/20/21 21:18 Temperature 35.7 C L Temperature Source Temporal Artery Scan Pulse Rate 58 L 58 L Pulse Rate [Finger] Pulse Rhythm Regular Pulse Rhythm [Finger] Respiratory Rate 20 Respiratory Effort / Characteristics Non-Labored Respiratory Depth Normal Blood Pressure 195/76 H Blood Pressure [Left Arm] Blood Pressure Mean 115 Blood Pressure Mean [Left Arm] Blood Pressure Position [Left Arm] Pulse Oximetry 96 98 99 Oxygen Delivery Method Room Air Room Air Room Air Oxygen Flow Rate 0 Sepsis Recent Fever Within 48 Hours No Sepsis New/Unexplained Change in Mental Status N/A Sepsis Action Taken by Nursing No Action Required 08/20/21 21:19 Temperature Temperature Source Pulse Rate Pulse Rate [Finger] 51 L Pulse Rhythm Pulse Rhythm [Finger] Regular Respiratory Rate 18 Respiratory Effort / Characteristics Non-Labored Respiratory Depth Normal Blood Pressure Blood Pressure [Left Arm] 136/78 Blood Pressure Mean Blood Pressure Mean [Left Arm] 97 Blood Pressure Position [Left Arm] Lying Pulse Oximetry 98 Oxygen Delivery Method Room Air Oxygen Flow Rate Sepsis Recent Fever Within 48 Hours Sepsis New/Unexplained Change in Mental Status Sepsis Action Taken by Detention Medications Current Medication List: was personally reviewed by me Laboratory Data Attestation: I reviewed the patient's lab results. Result diagrams: 08/21/21 03:24 08/21/21 03:24 Lab Results 08/20/21 08/20/21 08/20/21 Range/Units 20:52 21:07 21:19 WBC (4.8-10.8) K/uL RBC (4.2-5.4) M/uL Hgb (12.0-16.0) g/dL Hct (37-47) % MCV (80-100) fL MCH (25-34) pg MCHC (32-36) g/dL RDW Std Deviation (36.4-46.3) fL RDW Coeff of Valorie (11.5-14.5) % Plt Count (130-400) K/uL MPV (7.4-10.4) fL Immature Gran % (Auto) % Neut % (Auto) % Lymph % (Auto) % [place] % (Auto) % Eos % (Auto) % Baso % (Auto) % Neut # (Auto) (1.4-6.5) K/uL Lymph # (Auto) (1.2-3.4) K/uL [place] # (Auto) (0.11-0.59) K/uL Eos # (Auto) (0-0.5) K/uL Baso # (Auto) (0-0.2) K/uL Immature Gran # (Auto) (0.00-0.02) K/uL Sodium 142 (136-145) mmol/L Potassium 4.3 (3.5-5.1) mmol/L Chloride 108 H (98-107) mmol/L Carbon Dioxide 26 (21-32) mmol/L Anion Gap 8 (3-11) BUN 17 (6-23) mg/dl Creatinine 1.16 (0.6-1.2) mg/dl Est Cr Clr Drug Dosing 37.9 ml/min Est GFR ( Amer) 51.9 ml/min Est GFR (Non-Af Amer) 44.7 ml/min BUN/Creatinine Ratio 14.7 (10-20) Glucose 100 H (70-99(Fasting)) mg/dl POC Glucose 98 (70-99) mg/dl Calcium 9.5 (8.5-10.1) mg/dl Phosphorus 3.9 (2.5-4.9) mg/dl Magnesium 1.9 (1.7-2.4) mg/dl Total Bilirubin 0.8 (0.2-1.0) mg/dl AST 27 (13-39) U/L ALT 18 (7-52) U/L Alkaline Phosphatase 101 (34-104) U/L Troponin I < 0.03 (0-0.04) ng/ml Total Protein 7.4 (6.0-8.3) gm/dl Albumin 4.2 (3.4-5.0) gm/dl Globulin 3.2 (2.5-4.0) gm/dl Albumin/Globulin Ratio 1.3 (0.9-2) TSH (0.300-4.500) uIu/ml SARS-CoV-2, RNA, NAAT NEGATIVE (NEGATIVE) 08/20/21 08/20/21 Range/Units 21:19 21:19 WBC 8.08 (4.8-10.8) K/uL RBC 4.85 (4.2-5.4) M/uL Hgb 15.0 (12.0-16.0) g/dL Hct 46.0 (37-47) % MCV 94.8 (80-100) fL MCH 30.9 (25-34) pg MCHC 32.6 (32-36) g/dL RDW Std Deviation 48.3 H (36.4-46.3) fL RDW Coeff of Valorie 13.9 (11.5-14.5) % Plt Count 154 (130-400) K/uL MPV 10.3 (7.4-10.4) fL Immature Gran % (Auto) 0.6 % Neut % (Auto) 74.1 % Lymph % (Auto) 15.2 % [place] % (Auto) 8.8 % Eos % (Auto) 1.1 % Baso % (Auto) 0.2 % Neut # (Auto) 5.98 (1.4-6.5) K/uL Lymph # (Auto) 1.23 (1.2-3.4) K/uL [place] # (Auto) 0.71 H (0.11-0.59) K/uL Eos # (Auto) 0.09 (0-0.5) K/uL Baso # (Auto) 0.02 (0-0.2) K/uL Immature Gran # (Auto) 0.05 H (0.00-0.02) K/uL Sodium (136-145) mmol/L Potassium (3.5-5.1) mmol/L Chloride (98-107) mmol/L Carbon Dioxide (21-32) mmol/L Anion Gap (3-11) BUN (6-23) mg/dl Creatinine (0.6-1.2) mg/dl Est Cr Clr Drug Dosing ml/min Est GFR ( Amer) ml/min Est GFR (Non-Af Amer) ml/min BUN/Creatinine Ratio (10-20) Glucose (70-99(Fasting)) mg/dl POC Glucose (70-99) mg/dl Calcium (8.5-10.1) mg/dl Phosphorus (2.5-4.9) mg/dl Magnesium (1.7-2.4) mg/dl Total Bilirubin (0.2-1.0) mg/dl AST (13-39) U/L ALT (7-52) U/L Alkaline Phosphatase (34-104) U/L Troponin I (0-0.04) ng/ml Total Protein (6.0-8.3) gm/dl Albumin (3.4-5.0) gm/dl Globulin (2.5-4.0) gm/dl Albumin/Globulin Ratio (0.9-2) TSH 3.250 (0.300-4.500) uIu/ml SARS-CoV-2, RNA, NAAT (NEGATIVE) Administered Medications Celecoxib (Celebrex 200 Mg Cap) 200 mg PO QAM [facility] Stop: 09/20/21 08:59 Last Admin: 08/21/21 08:40 Dose: 200 mg Documented by: [id number] Famotidine (Famotidine 40 Mg Tablet) 40 mg PO DAILY [facility] Stop: 09/20/21 08:59 Last Admin: 08/21/21 08:40 Dose: 40 mg Documented by: [id number] Metoprolol Succinate (Metoprolol Succ 50mg Ext Rel Tab) 50 mg PO QAM [facility] Stop: 09/20/21 08:59 Last Admin: 08/21/21 08:39 Dose: 50 mg Documented by: [id number] Timolol Maleate (Timolol Maleate 0.5% Op Soln 5 Ml Btl) 1 drops OP BID [facility] Stop: 09/20/21 08:59 Last Admin: 08/21/21 08:39 Dose: 1 drops Documented by: [id number] Discontinued Medications Sodium Chloride (Nss 1000ml) 1,000 mls @ 999 mls/hr IV .Q1H1M [facility] Stop: 08/20/21 21:45 Last Infusion: 08/20/21 23:48 Dose: 0 mls/hr Documented by: [id number] Admin: 08/20/21 22:24 Dose: 999 mls/hr Documented by: [id number] Ondansetron HCl (Ondansetron Inj 2 Mg/Ml 2 Ml Vial) 4 mg IV NOW STA Stop: 08/20/21 22:29 Last Admin: 08/20/21 22:33 Dose: 4 mg Documented by: [id number] Imaging Data Radiologist's Impression: Chest X-Ray 08/20/21 21:16 XR chest 1V portable CLINICAL HISTORY: syncope COMPARISON STUDY: Chest radiograph March 22, 2019. FINDINGS: Lung volumes are normal. Lungs are clear. There is no pneumothorax or pleural effusion. Cardiomegaly is unchanged. Mediastinal contours are normal. There is no evidence for pulmonary edema. IMPRESSION: No acute cardiopulmonary findings. ACT 112: Negative or not required by law. Electronically signed by: Orlando Raygoza M.D. 08/21/2021 7:39 AM Discharge Plan Visit Data Chief Complaint: Syncope Stated Complaint: PASSED OUT / NAUSEA ED Provider: ANUPAMAED Discharge Problem: Syncope, History of coronary artery bypass graft, Nausea Patient Disposition: Admitted As Inpatient Discharge Instructions Interventions: ED Discharge Assessment Last Done: 08/21/21 02:58
[2021-08-20] MEDS ORDERED: SODIUM CHLORIDE 0.9% 1000ML 1,000 ML IV SCH (20:45)
[2021-08-20 22:02] LABS: Basophils # (auto) 0.02 K/uL (0-0.2); Basophils % (auto) 0.2 %; Eosinophils # (auto) 0.09 K/uL (0-0.5); Eosinophils % (auto) 1.1 %; Immature Granulocytes # (auto) 0.05 K/uL (0.00-0.02); Immature Granulocytes % (auto) 0.6 %; Lymphocytes # (auto) 1.23 K/uL (1.2-3.4); Lymphocytes % (auto) 15.2 %; Mean Corpuscular Hemoglobin 30.9 pg (25-34); Mean Corpuscular Hgb Conc 32.6 g/dL (32-36); Mean Corpuscular Volume 94.8 fL (80-100); Mean Platelet Volume 10.3 fL (7.4-10.4); Monocytes # (auto) 0.71 K/uL (0.11-0.59); Monocytes % (auto) 8.8 %; Neutrophils # (auto) 5.98 K/uL (1.4-6.5); Neutrophils % (auto) 74.1 %; Platelet Count 154 K/uL (130-400); RDW Coefficient of Variation 13.9 % (11.5-14.5); RDW Standard Deviation 48.3 fL (36.4-46.3); Red Blood Count 4.85 M/uL (4.2-5.4); White Blood Count 8.08 K/uL (4.8-10.8)
[2021-08-20 22:25] LABS: Troponin I < 0.03 ng/ml (0-0.04)
[2021-08-20 22:27] LABS: Alanine Aminotransferase 18 U/L (7-52); Albumin Globulin Ratio 1.3 (0.9-2); Albumin Level 4.2 gm/dl (3.4-5.0); Alkaline Phosphatase 101 U/L (34-104); Anion Gap 8 (3-11); Aspartate Aminotransferase 27 U/L (13-39); BUN Creatinine Ratio 14.7 (10-20); Bilirubin,Total 0.8 mg/dl (0.2-1.0); Blood Urea Nitrogen 17 mg/dl (6-23); Calcium 9.5 mg/dl (8.5-10.1); Carbon Dioxide 26 mmol/L (21-32); Chloride 108 mmol/L (98-107); Creatinine Clr Calc Pharmacy 37.9 ml/min; Est GFR (African American) 51.9 ml/min; Est GFR (Non-African American) 44.7 ml/min; Globulin 3.2 gm/dl (2.5-4.0); Glucose 100 mg/dl (70-99(Fasting)); Magnesium 1.9 mg/dl (1.7-2.4); Phosphorus 3.9 mg/dl (2.5-4.9); Potassium 4.3 mmol/L (3.5-5.1); Sodium 142 mmol/L (136-145); Total Protein 7.4 gm/dl (6.0-8.3)
[2021-08-20] MEDS ORDERED: ONDANSETRON INJ 2 MG/ML 2 ML VIAL IV STA (22:28)
--- NOTE | 2021-08-20 23:15 | History & Physical Report ---
Date of Service August 20, 2021 Assessment & Plan (1) Syncope: Plan: 80yo female with a history of HTN, HLD, CAD s/p CABG, CKD3, pancreatitis, GERD, spinal stenosis, and urinary incontinence presents after an unwitnessed syncopal episode. Syncope Patient with one syncopal episode at home without fall/injury with prodrome of nausea and weakness Symptoms likely secondary to vasovagal syncope, though differential includes cardiogenic syncope; CVA or neurogenic cause unlikely In ED, EKG: sinus bradycardia; symptoms improved s/p NSS 1L bolus and zofran IV 4mg x1 Given patient regained consciousness in the chair she had helped herself into, and head NCAT on exam, low suspicion for head trauma, will not order CT head at this time Troponin negative, CBC and BMP unremarkable, CXR without acute process Bradycardia noted on admission, though this appears to be chronic and stable Admit to med/surg telemetry Neuro check q shift Echo ordered Lipid profile, A1c, CBC, BMP in AM Consider adjusting home metoprolol Asymptomatic bacteriuria UA noted with bacteria, WBCs, leuk esterase, nitrite, some epithelial cells; no blood or protein Patient noted with chronic urinary incontinence though patient reports this is unchanged from baseline; no current/recent burning with urination or increased frequency No treatment indicated at this time HTN BP well-controlled on admission Continue metoprolol Bradycardia Appears to be chronic and stable; no concerns noted in patient's cardiology notes EKG: sinus bradycardia Continue home metoprolol for now, consider adjustment HLD, CAD s/p CABG (1996) Repeat lipid profile as above Continue home atorvastatin, ASA, metoprolol CKD3 Creatinine on admission 1.16 (baseline ~1.3) Trend daily BMP GERD Continue home famotidine Urinary incontinence Continue home solifenacin FEN: heart healthy diet Code status: full code DVT ppx: SCD's Held home meds: metoprolol PT/OT: ordered Dispo: med/surg telemetry History of Present Illness Chief Complaint: syncope Primary Care Provider: Radha Asher MD 80yo female with a history of HTN, HLD, CAD s/p CABG, CKD3, pancreatitis, GERD, spinal stenosis, and urinary incontinence presents after an unwitnessed syncopal episode. Patient was at home cooking dinner when she started to feel nauseous and lightheaded. Patient walked into another room and sat down in a chair. Patient then lost consciousness for an unknown amount of time; when she came to, she was still seated in the chair. Denies fall, denies any pain at this time. Patient notes her nausea and lightheadedness continued after the event. Patient came to the ED about one hour after the event. Patient notes she feels far better after receiving a liter of NSS in the ED. Patient denies current or recent fever, chills, vision changes, CP, SOB, vomiting, diarrhea, slurred speech, or other symptoms. Patient notes a history of urinary incontinence but reports her recent incontinence is no different from her baseline. Patient denies pain with urination or change in urinary frequency. Allergies Allergy/AdvReac Type Severity Reaction Status Date / Time No Known Drug Allergies Allergy Verified 08/20/21 21:34 Home Medications Medication Instructions Recorded Confirmed Type meclizine 12.5 mg tablet 12.5 mg PO TID PRN #20 tab 06/02/18 08/20/21 Rx multivitamin (One Daily Essential) 1 tab PO DAILY 02/17/19 08/20/21 History aspirin 81 mg tablet,delayed 81 mg PO QPM #30 tab 03/08/19 08/20/21 History release timolol 0.5 % eye drops 1 drp OPHTHALMIC (EYE) BID #45 ml 08/20/19 08/20/21 Rx nystatin-triamcinolone 100,000 1 appln TOP TID PRN gm 03/21/20 08/20/21 History unit/g-0.1 % topical cream atorvastatin 20 mg tablet (Lipitor) 20 mg PO HS #90 tab 04/18/20 08/20/21 Rx ipratropium bromide 21 mcg (0.03 1 spray INTRANASAL DAILY PRN #90 ml 12/12/20 08/20/21 Rx %) nasal spray metoprolol succinate 50 mg 50 mg PO QAM #90 tab 03/06/21 08/20/21 Rx tablet,extended release 24 hr (Toprol XL) celecoxib 200 mg capsule (Celebrex) 200 mg PO QAM #90 cap 04/10/21 08/20/21 Rx famotidine 40 mg tablet 40 mg PO DAILY #90 tab 07/18/21 08/20/21 Rx solifenacin 5 mg tablet (Vesicare) 5 mg PO QAM #90 tab 07/18/21 08/20/21 Rx Past Med/Surg History Medical History Acid reflux Bradycardia CHRONIC/ASYMPTOMATIC ON BETA CARROL; BASELINE HR 40'S-50'S CAD (coronary artery disease) RCA 75% by cath 1996 Chronic constipation CKD (chronic kidney disease) STAGE III Environmental allergies GERD (gastroesophageal reflux disease) CONTROLLED Glaucoma Hiatal hernia Hx of myocardial infarction 1995- [employer]ICAL [employer] Hyperlipidemia Hypertension Obesity Osteoarthritis Pancreatitis Paresthesia of lower extremity Sensorineural hearing loss (SNHL) of both ears Speech impairment PT REPORTS SOMETIMES HAS TROUBLE FINDING WORDS, STARTED 1 YR AGO - HAS DISCUSSED WITH PCP Spinal stenosis, 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 minimal AP diameter=3.58mm Urge and stress incontinence Surgical History History of anesthesia reaction VERTIGO WHEN TRYING TO COME OUT OF ANESTHESIA FOR R TKA ([facility]) "HARD TIME WAKING UP" WITH L TKA ([facility]--no record of any complications) History of total knee replacement LEFT TKA= 04/11/15= SAB X 2 ATTEMPTS L4/L5 U/S ASSIST + PNB AT [facility] History of total right knee replacement (TKR) Hx of cardiac cath 1996, NO STENT. RCA 75%. Hx of colonoscopy Hx of dilation and curettage Hx of oral surgery S/P TEETH EXTRACTIONS Hx of tonsillectomy Hx of tubal ligation S/P laparoscopic cholecystectomy (06/09/19) Laparoscopic Cholecystectomy with Cholangiogram Dr. 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 Chief Required: No Beliefs That Will Affect Care: None marital status: / Current Living Situation: Alone current occupational status: retired Other Information That Helps Us Care for You: No Feels Safe at Home: Yes Safety Concerns: Feels Safe At This Time Childhood Exposure to Second-Hand Smoke: No Dental Care, Regularly: No Physical Activity Frequency: 1-2 Times per Week Seatbelt Use: always Sunscreen Use: Yes Assistive Devices: Denture - Upper, Denture - Lower and Glasses Review of Systems Review of Systems: All systems reviewed & are unremarkable except as noted in HPI & below Physical Exam Physical Exam: Physical exam Gen: awake, comfortable-appearing, NAD HEENT: NCAT, MMM CV: bradycardic, regular rhythm, S1 and S2 noted, no murmur appreciated, extremities well-perfused, no LE edema Resp: CTABL, no increased WOB Abd: soft, nondistended, nontender, BS normoactive MSK: no CVA tenderness Neuro: AOx4, CN2-12 grossly intact, no focal deficit appreciated, strength 5/5 in all extremities Results & Data Results & Data ([facility]) Vital Signs (Past 12 Hours) Vital Signs Temp Pulse Pulse Resp BP BP Pulse Ox 08/20/21 21:19 51 L 18 136/78 98 08/20/21 21:18 99 08/20/21 21:10 58 L 98 08/20/21 20:15 35.7 C L 58 L 20 195/76 H 96 Laboratory Results Laboratory Results WBC 6.09 K/uL (4.8-10.8) 08/21/21 03:24 RBC 4.32 M/uL (4.2-5.4) 08/21/21 03:24 Hgb 13.3 g/dL (12.0-16.0) 08/21/21 03:24 Hct 41.1 % (37-47) 08/21/21 03:24 MCV 95.1 fL (80-100) 08/21/21 03:24 MCH 30.8 pg (25-34) 08/21/21 03:24 MCHC 32.4 g/dL (32-36) 08/21/21 03:24 RDW Std Deviation 48.2 fL (36.4-46.3) H 08/21/21 03:24 RDW Coeff of Valorie 14.0 % (11.5-14.5) 08/21/21 03:24 Plt Count 164 K/uL (130-400) 08/21/21 03:24 MPV 10.0 fL (7.4-10.4) 08/21/21 03:24 Immature Gran % (Auto) 0.3 % 08/21/21 03:24 Neut % (Auto) 68.4 % 08/21/21 03:24 Lymph % (Auto) 22.8 % 08/21/21 03:24 [place] % (Auto) 8.0 % 08/21/21 03:24 Eos % (Auto) 0.2 % 08/21/21 03:24 Baso % (Auto) 0.3 % 08/21/21 03:24 Neut # (Auto) 4.16 K/uL (1.4-6.5) 08/21/21 03:24 Lymph # (Auto) 1.39 K/uL (1.2-3.4) 08/21/21 03:24 [place] # (Auto) 0.49 K/uL (0.11-0.59) 08/21/21 03:24 Eos # (Auto) 0.01 K/uL (0-0.5) 08/21/21 03:24 Baso # (Auto) 0.02 K/uL (0-0.2) 08/21/21 03:24 Immature Gran # (Auto) 0.02 K/uL (0.00-0.02) 08/21/21 03:24 Sodium 141 mmol/L (136-145) 08/21/21 03:24 Potassium 4.4 mmol/L (3.5-5.1) 08/21/21 03:24 Chloride 111 mmol/L (98-107) H 08/21/21 03:24 Carbon Dioxide 24 mmol/L (21-32) 08/21/21 03:24 Anion Gap 6 (3-11) 08/21/21 03:24 BUN 16 mg/dl (6-23) 08/21/21 03:24 Creatinine 1.04 mg/dl (0.6-1.2) 08/21/21 03:24 Est Cr Clr Drug Dosing 42.3 ml/min 08/21/21 03:24 Est GFR ( Amer) 59.2 ml/min 08/21/21 03:24 Est GFR (Non-Af Amer) 51.1 ml/min 08/21/21 03:24 BUN/Creatinine Ratio 15.4 (10-20) 08/21/21 03:24 Glucose 105 mg/dl (70-99(Fasting)) H 08/21/21 03:24 POC Glucose 98 mg/dl (70-99) 08/20/21 20:52 Calcium 8.7 mg/dl (8.5-10.1) 08/21/21 03:24 Phosphorus 3.9 mg/dl (2.5-4.9) 08/20/21 21:19 Magnesium 1.9 mg/dl (1.7-2.4) 08/20/21 21:19 Total Bilirubin 0.8 mg/dl (0.2-1.0) 08/20/21 21:19 AST 27 U/L (13-39) 08/20/21 21:19 ALT 18 U/L (7-52) 08/20/21 21:19 Alkaline Phosphatase 101 U/L (34-104) 08/20/21 21:19 Troponin I < 0.03 ng/ml (0-0.04) 08/21/21 03:24 Total Protein 7.4 gm/dl (6.0-8.3) 08/20/21 21:19 Albumin 4.2 gm/dl (3.4-5.0) 08/20/21 21:19 Globulin 3.2 gm/dl (2.5-4.0) 08/20/21 21:19 Albumin/Globulin Ratio 1.3 (0.9-2) 08/20/21 21:19 Triglycerides 61 mg/dl (0-150) 08/21/21 03:24 Cholesterol 127 mg/dl (0-200) 08/21/21 03:24 LDL Cholesterol, Calc 74 mg/dl 08/21/21 03:24 VLDL Cholesterol, Calc 12 mg/dl (0-30) 08/21/21 03:24 HDL Cholesterol 41 mg/dl 08/21/21 03:24 Cholesterol/HDL Ratio 3.1 (0-5) 08/21/21 03:24 TSH 3.250 uIu/ml (0.300-4.500) 08/20/21 21:19 Urine Color Yellow 08/20/21 Unknown Urine Appearance Clear (Clear) 08/20/21 Unknown Urine pH 7.0 (4.5-7.5) 08/20/21 Unknown Ur Specific [place] 1.012 (1.000-1.030) 08/20/21 Unknown Urine Protein Negative (Negative) 08/20/21 Unknown Urine Glucose (UA) Negative (Negative) 08/20/21 Unknown Urine Ketones Negative (Negative) 08/20/21 Unknown Urine Blood Negative (Negative) 08/20/21 Unknown Urine Nitrite Positive (Negative) A 08/20/21 Unknown Urine Bilirubin Negative (Negative) 08/20/21 Unknown Urine Urobilinogen Negative (Negative) 08/20/21 Unknown Ur Leukocyte Esterase 2+ (Negative) H 08/20/21 Unknown Urine WBC (Auto) 10-30 /hpf (0-5) H 08/20/21 Unknown Urine RBC (Auto) 0-4 /hpf (0-4) 08/20/21 Unknown U Hyaline Cast (Auto) 0 /lpf (0-5) 08/20/21 Unknown U Epithel Cells (Auto) 5-10 /lpf (0-5) H 08/20/21 Unknown Urine Bacteria (Auto) 4+ (Negative) H 08/20/21 Unknown SARS-CoV-2, RNA, NAAT NEGATIVE (NEGATIVE) 08/20/21 21:07 Supervising Physician Co-Signing Physician Notes Patient seen and examined, chart reviewed, case discussed with Dr. Stahl and I agree with the assessment and plan as documented above. In brief, patient is a 80yo female with history of CAD presenting with syncope. Prodrome of dizziness, patient able to get to a chair. No head trauma. No CP/Palpitations/incontinence On exam she is afebrile, HD stable, bradycardic at baseline Skin- intact HEENT - NC/AT, PERRL, MMM, Neck supple, c-spine nontender, no carotid bruits Heart - +S1/S2, regular, bradycardic, no m/r/g Lungs - CTA Abd - +BS, soft, NT/ND Ext - warm, no edema Labs and images reviewed, Unremarkable Assessment/Plan 80yo female with history of CAD presenting after syncopal episode at home. -Telemetry monitoring -Check orthostatic VS -Check 2D echo -Do not think HR is playing a role - has had bradycardia on beta carrol therapy for quite a long time. No prior syncope, dizziness -Remainder as above Resident Activity Tracking Resident Involvement: Resident Care Provided and Agency Director Coverage Note Care Provided: Adult [facility] Medicine
[2021-08-20 23:38] LABS: Appearance Urine Clear (Clear); Bacteria Urine Automated 4+ (Negative); Bilirubin Urine Negative (Negative); Blood Urine Negative (Negative); Cast Urine Automated 0 /lpf (0-5); Color Urine Yellow; Glucose Urine UA Negative (Negative); Ketones Urine Negative (Negative); Leukocyte Esterase Urine 2+ (Negative); Nitrite Urine Positive (Negative); Protein Urine Negative (Negative); RBC Urine Automated 0-4 /hpf (0-4); Specific Gravity Urine 1.012 (1.000-1.030); Urobilinogen Urine Negative (Negative)
[2021-08-21] MEDS ORDERED: MECLIZINE 12.5 MG TAB PO PRN (03:04)
[2021-08-21] MEDS ORDERED: POLYETHYLENE (MIRALAX) 17 GM PACK PO PRN (03:04)
[2021-08-21] MEDS ORDERED: ACETAMINOPHEN 325 MG TAB PO PRN (03:04)
[2021-08-21 03:35] LABS: Basophils # (auto) 0.02 K/uL (0-0.2); Basophils % (auto) 0.3 %; Eosinophils # (auto) 0.01 K/uL (0-0.5); Eosinophils % (auto) 0.2 %; Hematocrit (blood only) 41.1 % (37-47); Hemoglobin 13.3 g/dL (12.0-16.0); Immature Granulocytes # (auto) 0.02 K/uL (0.00-0.02); Immature Granulocytes % (auto) 0.3 %; Lymphocytes # (auto) 1.39 K/uL (1.2-3.4); Lymphocytes % (auto) 22.8 %; Mean Corpuscular Hemoglobin 30.8 pg (25-34); Mean Corpuscular Hgb Conc 32.4 g/dL (32-36); Mean Corpuscular Volume 95.1 fL (80-100); Monocytes # (auto) 0.49 K/uL (0.11-0.59); Neutrophils # (auto) 4.16 K/uL (1.4-6.5); Neutrophils % (auto) 68.4 %; Platelet Count 164 K/uL (130-400); RDW Standard Deviation 48.2 fL (36.4-46.3); Red Blood Count 4.32 M/uL (4.2-5.4); White Blood Count 6.09 K/uL (4.8-10.8)
[2021-08-21 03:53] LABS: BUN Creatinine Ratio 15.4 (10-20); Calcium 8.7 mg/dl (8.5-10.1); Chol HDL Ratio 3.1 (0-5); Creatinine Clr Calc Pharmacy 42.3 ml/min; Est GFR (African American) 59.2 ml/min; Est GFR (Non-African American) 51.1 ml/min; Potassium 4.4 mmol/L (3.5-5.1)
--- NOTE | 2021-08-21 04:55 | Billing Data ---
Date of Service August 20, 2021 Coding Level of Care Code INT OBSERVATION CARE 50M LVL 2
[2021-08-21 07:08] LABS: Estimated Average Glucose 114 mg/dl; Hemoglobin A1C 5.6 % (4.5-5.6)
--- NOTE | 2021-08-21 07:40 | XRay Report ---
XR chest 1V portable CLINICAL HISTORY: syncope COMPARISON STUDY: Chest radiograph March 22, 2019. FINDINGS: Lung volumes are normal. Lungs are clear. There is no pneumothorax or pleural effusion. Car diomegaly is unchanged. Mediastinal contours are normal. There is no evidence for pulmonary edema. IMPRESSION: No acute cardiopulmonary findings. ACT 112: Negative or not required by law. Electronically signed by: Orlando Raygoza M.D. 08/21/2021 7:39 AM
--- NOTE | 2021-08-21 08:44 | Electrocardiogram Report ---
Test Reason : Blood Pressure : / mmHG Vent. Rate : 056 BPM Atrial Rate : 056 BPM P-R Int : 224 ms QRS Dur : 084 ms QT Int : 462 ms P-R-T Axes : 072 054 056 degrees QTc Int : 445 ms Sinus bradycardia with 1st degree A-V block Possible Anterior infarct , age undetermined Abnormal ECG When compared with ECG of 22-MAR-2019 17:53, Premature atrial complexes are no longer Present Confirmed by Kyaw Back ([id number]) on 08/21/2021 8:44:21 AM Referred By: REFERRED SELF Confirmed By:Zoltan Back
[2021-08-21] MEDS ORDERED: METOPROLOL SUCC 50MG EXT REL TAB PO SCH (09:00)
[2021-08-21] MEDS ORDERED: CeleBREX 200 MG CAP PO SCH (09:00)
[2021-08-21] MEDS ORDERED: TIMOLOL MALEATE 0.5% OP SOLN 5 ML BTL OP SCH (09:00)
[2021-08-21] MEDS ORDERED: FAMOTIDINE 40 MG TABLET PO SCH (09:00)
--- NOTE | 2021-08-21 09:25 | XCELERA ---
[id number]
--- NOTE | 2021-08-21 10:44 | Hospitalist Progress Note ---
Date of Service August 21, 2021 Assessment & Plan Admission and Anticipated Discharge Date Admission Date: August 20, 2021 Subjective No acute changes overnight. Feels "fine". She reports a mild sinus headache today that she is able to manage without pain meds. No dizziness, or nausea reported. Review of Systems Constitutional: no fever, no chills and no weakness Respiratory: no dyspnea Cardiovascular: no chest pain and no lightheadedness Gastrointestinal: no abdominal pain, no vomiting, no change in bowel habits and no diarrhea/loose stools Genitourinary: no dysuria and no flank pain Neurologic: + headache(s); no localized weakness and no dizziness Physical Exam Constitutional: WD/WN, vitals as above well developed and well nourished; no acute distress Eyes: PERRL, conjunctivae normal, anicteric sclerae EOM intact bilaterally ENMT: Ears: + hearing impairment Mouth: + dentures Respiratory: normal respiratory effort, lungs clear to auscultation Cardiovascular: RRR, no murmur, no edema Gastrointestinal (Abdomen): Inspection/Auscultation: normal bowel sounds Percussion/Palpation: abdomen soft Results & Data Results & Data ([facility]) Vital Signs (Past 12 Hours) Vital Signs Temp Pulse Resp BP Pulse Ox 08/21/21 08:00 36.9 C 65 18 176/79 H 98 08/21/21 03:12 36.8 C 49 L 19 158/78 H 97 08/21/21 01:06 52 L 20 171/78 H 92 08/20/21 23:48 67 18 166/73 H 97
--- NOTE | 2021-08-21 15:21 | Discharge Summary ---
Date of Service August 21, 2021 Admission HPI Per Admitting Provider 80yo female with a history of HTN, HLD, CAD s/p CABG, CKD3, pancreatitis, GERD, spinal stenosis, and urinary incontinence presents after an unwitnessed syncopal episode. Patient was at home cooking dinner when she started to feel nauseous and lightheaded. Patient walked into another room and sat down in a chair. Patient then lost consciousness for an unknown amount of time; when she came to, she was still seated in the chair. Denies fall, denies any pain at this time. Patient notes her nausea and lightheadedness continued after the event. Patient came to the ED about one hour after the event. Patient notes she feels far better after receiving a liter of NSS in the ED. Patient denies current or recent fever, chills, vision changes, CP, SOB, vomiting, diarrhea, slurred speech, or other symptoms. Patient notes a history of urinary incontinence but reports her recent incontinence is no different from her baseline. Patient denies pain with urination or change in urinary frequency. Principal Diagnosis Syncope Discharge Exam GENERAL: A&Ox3. NAD. HEENT: PERRL, EOMI. Moist mucous membranes. NECK: No JVD. No lymphadenopathy. No carotid bruits. CHEST/LUNGS: CTAB A/P. No crackles, wheezes, rales, rhonchi. HEART: RRR. No m/g/r. No carotid bruits. ABDOMEN: NT/ND, soft. BS+ x4 EXTREMITIES: No cyanosis, no clubbing, no edema SKIN: Warm and dry. No rashes or lesions. PSYCHIATRIC: Euthymic affect, no SI, no pressured speech, no hallucinations NEUROLOGIC: No FND. CN II-XII grossly intact. Discharge Data Allergies Allergy/AdvReac Type Severity Reaction Status Date / Time No Known Drug Allergies Allergy Verified 08/20/21 21:34 Consultations 08/20/21 22:26 ED Decision to Admit Stat Hospital Course (1) Syncope: 80yo female with a history of HTN, HLD, CAD s/p CABG, CKD3, pancreatitis, GERD, spinal stenosis, and urinary incontinence presents after an unwitnessed syncopal episode. Syncope Patient with one syncopal episode at home without fall/injury with prodrome of nausea and weakness Symptoms likely secondary to vasovagal syncope, though differential includes cardiogenic syncope; CVA or neurogenic cause unlikely Given patient regained consciousness in the chair she had helped herself into, and head NCAT on exam, low suspicion for head trauma -- CT head not necessary at this time In ED, EKG: sinus bradycardia; symptoms improved s/p NSS 1L bolus and zofran IV 4mg x1 Troponin negative, CBC and BMP unremarkable, CXR without acute process Bradycardia noted, though this appears to be chronic and stable Echo with normal LV function, no significant valvular issues Ordered 30-day event monitor -- recommend she f/u with Cardiology Can consider adjusting home metoprolol as an outpatient Asymptomatic bacteriuria UA noted with bacteria, WBCs, leuk esterase, nitrite, some epithelial cells; no blood or protein Patient noted with chronic urinary incontinence though patient reports this is unchanged from baseline With syncope of uncertain etiology, will treat UTI with Bactrim DS BID x5 days Recommend f/u with PCP HTN BP well-controlled on admission Continue metoprolol -- as above, can consider adjustment Bradycardia Appears to be chronic and stable; no concerns noted in patient's cardiology notes EKG: sinus bradycardia Continue home metoprolol for now, consider adjustment HLD, CAD s/p CABG (1996) Continue home atorvastatin, ASA, metoprolol CKD3 Creatinine on admission 1.16 (baseline ~1.3) GERD Continue home famotidine Urinary incontinence Continue home solifenacin Dispo: Home - self care, f/u with PCP and Cardiology Total Time Total Time Spent Total Time Spent (In Minutes): I spent 45 minutes in examination, reviewing records, orders, and documentation. Discharge Plan Discharge Items Patient Disposition: Home - Self-Care Reason For Visit: SYNCOPE Discharge Diagnosis: Syncope Activity: Per Instructions section Non-emergency contact: Primary Care Provider and Functional Tester Call non-emergency contact if: your symptoms worsen Follow-up/Referrals: Radha Asher MD [Primary Care Provider] - Diet: Heart Healthy Addtl Attending Provider Instructions: You were admitted to [facility] due to a single episode of syncope at home. You evaluation showed that you had overall normal cardiac labs and your echocardiogram showed no concerning findings for structural abnormalities that would be likely to cause loss of consciousness. As such, it is considered that the most likely cause of your loss of consciousness was vasovagal syncope, which is when your body has a reaction in which your heart beats too slowly or your blood vessels expand (or both). Vasovagal syncope can occur when you have stress from fear or pain, stand for too long or are over-tired or overheated, have an unusual reaction to urinating, coughing, or other body functions. Sometimes vasovagal syncope happens with no clear cause. However, the possibility of an arrhythmia cannot be fully ruled out at this time. You had cardiac monitoring and EKG done while admitted, which did not show any significant abnormalities. That being said, it will still be reasonable to rule out arrhythmias further. We will do this by ordering a 30-day monitor that will track your heart rate and identify any arrhythmias. This has been ordered for you and you will be contacted to receive the monitor. Please follow up with your PCP and Functional Tester for discussion of this hospitalization and review of the results of your monitor. We found that you likely have a urinary infection, which could potentially cause vasovagal syncope. We will treat you with bactrim twice daily for 5 days. This has been sent to your pharmacy. If you develop any sever symptoms such as chest pain, palpitations, further loss of consciousness, severe headaches, neurologic symptoms, or any symptoms that are concerning to you, please return to the hospital for further evaluation. Pending Studies at Discharge: No Stand-Alone Forms: [facility], Smoking Cessation Medications and DC Order Prescriptions: New sulfamethoxazole-trimethoprim [Bactrim DS] 800-160 mg tablet 1 tab PO BID 5 Days Qty: 10 RF: 0 Continued nystatin-triamcinolone 100,000-0.1 unit/g-% cream 1 appln TOP TID PRN (Reason: Skin Irritation) RF: 0 timolol 0.5 % drops 1 drp OPHTHALMIC (EYE) BID Qty: 45 RF: 1 atorvastatin [Lipitor] 20 mg tablet 20 mg PO HS Qty: 90 RF: 3 ipratropium bromide 21 mcg (0.03 %) spray,non-aerosol 1 spray INTRANASAL DAILY PRN (Reason: Nasal Congestion) Qty: 90 RF: 3 metoprolol succinate [Toprol XL] 50 mg tablet extended release 24 hr 50 mg PO QAM Qty: 90 RF: 1 celecoxib [Celebrex] 200 mg capsule 200 mg PO QAM Qty: 90 RF: 1 famotidine 40 mg tablet 40 mg PO DAILY Qty: 90 RF: 3 solifenacin [Vesicare] 5 mg tablet 5 mg PO QAM Qty: 90 RF: 1 multivitamin [One Daily Essential] tablet 1 tab PO DAILY RF: 0 aspirin 81 mg tablet,delayed release (DR/EC) 81 mg PO QPM Qty: 30 RF: 0 meclizine 12.5 mg tablet 12.5 mg PO TID PRN (Reason: dizziness) Qty: 20 RF: 0 Discharge Orders: Discharge Order (Routine); Ordered 08/21/21 Ordered By: Himanshu Rutledge Admission Data Admit Date/Time: 08/20/21 23:26 Attending Provider: Thor Harden Admit Provider: Sameer Stahl Primary Care Provider: Radha Asher Other Providers: Meghna Estrada Other Interventions: Discharge Summary Assessment (RN) Last Done: 08/21/21 16:04 Supervising Physician Co-Signing Physician Notes I also saw the patient with the medical student and resident physician and confirmed mckeon portions of the history and physical examination. Agree with the impression and plan as noted in discharge summary and as summarized below. Pleasant 80-year-old female with history of hypertension, CKD, CAD status post CABG who presents to the emergency department yesterday following an apparent syncopal episode. The patient states she was standing in her kitchen when she felt acutely dizzy, which was followed thereafter by mild nausea without emesis and some diaphoresis. The patient was able to walk to her sofa where she feels that she passed out for a period of time, which she cannot quite quantify. When she awoke, she felt anxious and dizzy. She was able to call her grandson who then brought her to the emergency department. Per family at bedside during today's exam, the grandson felt that the patient looked weak, but otherwise did not notice anything out of the ordinary. She denies any slurred speech or difficulty with mentation; well some generalized weakness, no focal deficits were appreciated. Upon examination this afternoon, the patient remains in the emergency department holding area. She has family at bedside. Other than some dizziness shortly after admission, she has been symptom-free. She was able to ambulate through the emergency department, unassisted, without any issues. She denies any chest pain or shortness of breath. Denies headache. Denies any blurred or double vision. Exam 144/78, 68, 18, 36.9, 90% room air Pleasant alert and oriented. Neck is supple. I did not appreciate a carotid bruit. Heart is regular, borderline bradycardic but this appears to be patient's norm. Lungs are clear with nonlabored respirations Extremities without edema or calf tenderness Data CBC is unremarkable. BUN 16, creatinine 1.04. Troponin less than 0.03. Triglycerides 61, total cholesterol 127, LDL 74, HDL 41. Imaging A chest x-ray dated 08/20/2021 shows no acute findings. Micro Urinalysis was positive for nitrites, 2+ leuk esterase, 10-30 WBC. Urine cultures pending Impression and Plan Vasovagal syncope Patient desires discharge home and that seems reasonable. Discussed with cardiology, recommendation for event monitor. This be arranged as an outpatient. She is a mild bradycardia, though this appears to be patient's baseline. She is on Toprol, but a reasonable dose. No adjustments made this hospitalization. Bacteriuria, question UTI Given the patient's presentation, will start empiric treatment for UTI pending urine culture We will follow up results and adjust if needed Additional per resident documentation Resident Activity Tracking Resident Involvement: Resident Care Provided Care Provided: Adult Hospital Medicine
[2021-08-21] MEDS ORDERED: ATORVASTATIN 20 MG TAB PO SCH (21:00)
[2021-08-21] MEDS ORDERED: ASPIRIN 81 MG ECTAB PO SCH (21:00)
== END 2021-08-21 17:27 | disposition home or self-care (01) ==
LOC: EDINP 20:12 → ED 20:12 → SUATTDRO 23:26 → EDINP 08-21 02:58

== ENCOUNTER 2022-11-05 19:55 | Observation (INO) ==
[2022-11-05] MEDS ORDERED: MECLIZINE HCL 25 MG TAB PO STA ×2 (20:08→21:55)
[2022-11-05] MEDS ORDERED: ONDANSETRON INJ 2 MG/ML 2 ML VIAL IV STA ×2 (20:08→21:20)
[2022-11-05] MEDS ORDERED: SODIUM CHLORIDE 0.9% 500 ML IV SCH (20:15)
--- NOTE | 2022-11-05 20:15 | Emergency Department Note ---
Impression & Plan Vertigo, Nausea, Bilateral tinnitus ED Provider Note Provider: Yaw Mcdermott MD DATE OF SERVICE: 11/05/2022 CHIEF COMPLAINT: Dizziness/vertigo HISTORY OF PRESENT ILLNESS: Patient is a 81-year-old female past medical history including CAD with CABG, CKD, SNHL, vasomotor rhinitis, and hypertension presenting here today via ambulance from [facility]. Patient was evidently at the store and had sudden onset of vertigo symptoms by report. States he felt very dizzy and nauseous. Denies falling. Denies bending over or turning quickly. Patient received Zofran and 1 mg of IV Ativan prior to arrival. Patient states she feels feels nauseous and dizzy. She is quite tired on exam. Denies chest pain or shortness of breath. Denies headache. Denies trauma. Denies recent URI symptoms. Patient with chronic tinnitus. PAST MEDICAL HISTORY: As noted above MEDICATIONS: Reviewed home medications SOCIAL HISTORY: PHYSICAL EXAM: GENERAL: alert to verbal stimuli in no acute distress on stretcher resting with eyes closed Head: normocephalic and atraumatic, no mastoid swelling EYES: No injection, discharge or icterus. PERRL, EOMI. NECK: Trachea midline. Supple. ENT: Mucous membranes pink and moist. TMs clear bilaterally without significant erythema or effusion LUNGS: Airway patent. No retractions. Breath sounds clear with good air entry bilaterally. HEART: Regular rate and rhythm. No chest wall tenderness ABDOMEN: Soft and non-tender, without guarding or rebound. SKIN: Acyanotic, warm, dry, without rashes EXTREMITIES: Without swelling, tenderness or deformity NEUROLOGICAL: No focal deficits and follows commands but somewhat drowsy. No significant aphasia or facial droop noted. Moves all extremities to commands. EK bpm sinus bradycardia with first-degree AV block. No PVC or PAC noted. No acute ST segment elevation or depression with a QTc of 442. CONTINUOUS CARDIAC MONITORING: was ordered and showed a heart rate of 40s-60s bpm in sinus bradycardia to sinus rhythm first-degree heart block Patient's laboratory studies and imaging reviewed. Differential includes Benign positional vertigo, dehydration, hypovolemia, anemia, tumor, infection, hypoglycemia, electrolyte abnormalities, cardiac sources, intracerebral event, toxicologic, neurologic, as well as other pathologies. IMPRESSION/MEDICAL DECISION MAKING: Patient reportedly with a history of vertigo. Drowsy and borderline hypoxic here likely related to the Ativan she was read just prior to arrival. No trauma history reported no evidence of trauma or person. No evidence of acute AOM. No significant infectious or recent URI or febrile illness reported doubt meningitis. Following commands without focal deficits. Benign abdomen. Denies headache or abdominal pain. Given her age however with her significant dizziness did complete a CT of the head. Has some underlying SNHL that may be contributing. Will order a dose of Antivert. Given some additional Zofran and IV fluid here. EKG shows some sinus bradycardia and has a history of similar in the past. Do not believe this is causing her symptoms. Denies palpitations or again chest pain on exam. Basic labs obtained to look for any significant laboratory abnormalities. Basic blood work here shows no significant anemia or leukocytosis. No severe electrolyte abnormality. Stable CKD. Negative COVID. CT of the head per r adiology without acute intracranial abnormality noted. Patient reassessment still with some nausea and given additional Zofran. Dizziness she states is improving some. Drowsiness is beginning to improve. We will trial the oral meclizine to see if she is able to tolerate it as she was in earlier given her nausea and vomiting. Son present states the patient's had some vertigo before but not as severe as this. Patient not able to stand for me here. Again do not see significant focal deficits and lower suspicion for CVA. In shared decision make with the patient and her son given the severity of her symptoms that are persistent and refractory to several medications significant effect this is having on her last the hospitalist to observe for further care. DIAGNOSIS: Vertigo, nausea DISPOSITION: Hospitalist will evaluate Patient was agreeable with this plan. Past Med/Surg History Medical History (Updated 11/06/22 @ 00:43 by Yaw Mcdermott M.D.) Acid reflux Bradycardia CHRONIC/ASYMPTOMATIC ON BETA BRADY; BASELINE HR 40'S-50'S CAD (coronary artery disease) RCA 75% by cath 1996 Chronic constipation CKD (chronic kidney disease) STAGE III Environmental allergies GERD (gastroesophageal reflux disease) CONTROLLED Glaucoma Hiatal hernia Hx of myocardial infarction 1995- [employer]ICAL [employer]NAG[employer] Hyperlipidemia Hypertension Obesity Osteoarthritis Pancreatitis Paresthesia of lower extremity Sensorineural hearing loss (SNHL) of both ears Speech impairment PT REPORTS SOMETIMES HAS TROUBLE FINDING WORDS, STARTED 1 YR AGO - HAS DISCUSSED WITH PCP Spinal stenosis, 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 minimal AP diameter=3.58mm Stage 3b chronic kidney disease Syncope Urge and stress incontinence Vitamin D deficiency Surgical History History of anesthesia reaction History of coronary artery bypass graft History of total knee replacement History of total right knee replacement (TKR) Hx of cardiac cath Hx of colonoscopy Hx of dilation and curettage Hx of oral surgery Hx of tonsillectomy Hx of tubal ligation S/P laparoscopic cholecystectomy (06/09/19) Family History Grandmother Family history of diabetes mellitus Father Myocardial infarction Cancer Brother Myocardial infarction Cancer Uncle Family hx of colon cancer Sister Breast cancer Other Heart disease Hypertension No family history of adverse response to anesthesia No family history of bleeding disorder Denies family history of Colon cancer Ovarian cancer Prostate cancer Social History (Updated 10/24/22 @ 13:53 by CATRACHITO Santos) Smoking Status: Unknown if ever smoked Second Hand Exposure: No; Do You Dip or Chew Tobacco: No; Hx Alcohol Use: Yes Alcohol type: wine Alcohol Intake Frequency: Monthly or Less Hx Substance Use: No Preferred Language: Swedish Communication Ability: Effective Communication Ability Comment: TROUBLE FINDING WORDS SOMETIMES/SEE MED HX NOTE Visual Impairment: No Limitations Hearing Ability: Hard of Hearing 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 Beliefs That Will Affect Care: None marital status: / Current Living Situation: Alone current occupational status: retired Feels Safe at Home: Yes Childhood Exposure to Second-Hand Smoke: No Diet: regular Dental Care, Regularly: No Physical Activity Frequency: 1-2 Times per Week Seatbelt Use: always Sunscreen Use: Yes Assistive Devices: Cane, Denture - Upper, Denture - Lower and Glasses Allergies Allergies Allergy/AdvReac Type Severity Reaction Status Date / Time No Known Drug Allergies Allergy Unknown Verified 11/05/22 20:03 Home Meds Home Medications Medication Instructions Recorded Confirmed multivitamin (One Daily Essential 1 tab PO DAILY 02/17/19 11/05/22 tablet) aspirin 81 mg tablet,delayed 81 mg PO QPM #30 tabs 03/08/19 11/05/22 release nystatin-triamcinolone 100,000 1 appln topical TID PRN Skin 03/21/20 11/05/22 unit/g-0.1 % topical cream Irritation Previous Rx's Medication Instructions Recorded timolol 0.5 % eye drops 1 drp ophthalmic (eye) BID #45 mL 08/20/19 atorvastatin 20 mg tablet (Lipitor) 20 mg PO HS #90 tabs 10/01/21 ipratropium bromide 21 mcg (0.03 1 spray intranasal DAILY PRN Nasal 11/20/21 %) nasal spray Congestion #90 mL fluticasone propionate 50 2 spray intranasal DAILY #15.8 01/22/22 mcg/actuation nasal grams spray,suspension mometasone 0.1 % topical cream 1 applic topical DAILY #15 grams 01/22/22 mupirocin 2 % topical ointment 1 applic topical BID #15 grams 01/22/22 solifenacin 10 mg tablet 10 mg PO QAM #90 tabs 04/08/22 celecoxib 200 mg capsule (Celebrex) 200 mg PO QAM #90 caps 05/30/22 metoprolol succinate 50 mg 50 mg PO QAM #90 tabs 05/30/22 tablet,extended release 24 hr (Toprol XL) albuterol sulfate 90 mcg/actuation 1 inh inhalation QID PRN shortness 07/29/22 aerosol inhaler of breath or wheezing #8.5 grams famotidine 40 mg tablet 40 mg PO BID #180 tabs 09/26/22 Results & Data (ED) Vital Signs Vital Signs - 24 hr 11/05/22 20:11 11/05/22 20:15 11/05/22 20:17 Temperature 36.4 C L Temperature Source Oral Pulse Rate 55 L Pulse Rate [Left Apical] 56 L Respiratory Rate 20 Blood Pressure Blood Pressure [Right Arm] 172/73 H Blood Pressure Mean Blood Pressure Mean [Right Arm] 106 Pulse Oximetry 88 L 96 Oxygen Delivery Method Nasal Cannula Nasal Cannula Oxygen Flow Rate 0 2 Sepsis Recent Fever Within 48 Hours Sepsis New/Unexplained Change in Mental Status Sepsis Action Taken by Nursing Oxygen Flow Rate - Titration 2 Pulse Oximetry Post Tiitration 94 11/05/22 19:46 11/05/22 20:08 11/05/22 20:30 Temperature Temperature Source Pulse Rate 45 L Pulse Rate [Left Apical] Respiratory Rate 21 Blood Pressure 175/79 H Blood Pressure [Right Arm] Blood Pressure Mean 111 Blood Pressure Mean [Right Arm] Pulse Oximetry 97 Oxygen Delivery Method Room Air Nasal Cannula Oxygen Flow Rate 2 Sepsis Recent Fever Within 48 Hours No Sepsis New/Unexplained Change in Mental Status No Sepsis Action Taken by Nursing No Action Required Oxygen Flow Rate - Titration Pulse Oximetry Post Tiitration 11/05/22 21:00 11/05/22 21:31 11/05/22 22:01 Temperature Temperature Source Pulse Rate 51 L 50 L 45 L Pulse Rate [Left Apical] Respiratory Rate 20 15 15 Blood Pressure 181/87 H 175/122 H 167/73 H Blood Pressure [Right Arm] Blood Pressure Mean 118 139 104 Blood Pressure Mean [Right Arm] Pulse Oximetry 98 100 100 Oxygen Delivery Method Nasal Cannula Nasal Cannula Nasal Cannula Oxygen Flow Rate 2 2 2 Sepsis Recent Fever Within 48 Hours Sepsis New/Unexplained Change in Mental Status Sepsis Action Taken by Nursing Oxygen Flow Rate - Titration Pulse Oximetry Post Tiitration 11/05/22 23:02 11/05/22 23:30 11/05/22 23:31 Temperature Temperature Source Pulse Rate 51 L 48 L 48 L Pulse Rate [Left Apical] Respiratory Rate 22 22 25 H Blood Pressure 132/92 173/58 H Blood Pressure [Right Arm] Blood Pressure Mean 105 96 Blood Pressure Mean [Right Arm] Pulse Oximetry 96 96 97 Oxygen Delivery Method Nasal Cannula Room Air Room Air Oxygen Flow Rate 2 Sepsis Recent Fever Within 48 Hours Sepsis New/Unexplained Change in Mental Status Sepsis Action Taken by Nursing Oxygen Flow Rate - Titration Pulse Oximetry Post Tiitration 11/06/22 00:00 11/06/22 00:01 Temperature Temperature Source Pulse Rate 45 L 44 L Pulse Rate [Left Apical] Respiratory Rate 17 22 Blood Pressure 132/83 Blood Pressure [Right Arm] Blood Pressure Mean 99 Blood Pressure Mean [Right Arm] Pulse Oximetry 94 95 Oxygen Delivery Method Room Air Room Air Oxygen Flow Rate Sepsis Recent Fever Within 48 Hours Sepsis New/Unexplained Change in Mental Status Sepsis Action Taken by Nursing Oxygen Flow Rate - Titration Pulse Oximetry Post Tiitration Laboratory Data 11/05/22 20:13 11/05/22 20:13 Lab Results 11/05/22 11/05/22 11/05/22 Range/Units 20:13 20:13 20:25 WBC 5.68 (4.8-10.8) K/ul RBC 4.35 (4.20-5.40) M/uL Hgb 13.4 (12.0-16.0) g/dl Hct 40.6 (37.0-47.0) % MCV 93.3 (80.0-100.0) fL MCH 30.8 (25.0-34.0) pg MCHC 33.0 (32.0-36.0) g/dL RDW Std Deviation 45.2 (36.4-46.3) fL RDW Coeff of Valorie 13.2 (11.5-14.5) % Plt Count 145 (130-400) K/uL MPV 10.3 (9.4-12.4) fL Immature Gran % (Auto) 1.6 % Neut % (Auto) 39.8 % Lymph % (Auto) 46.7 % [place] % (Auto) 9.2 % Eos % (Auto) 1.8 % Baso % (Auto) 0.9 % Neut # (Auto) 2.27 (1.40-6.50) K/uL Lymph # (Auto) 2.65 (1.2-3.4) K/uL [place] # (Auto) 0.52 (0.11-0.59) K/uL Eos # (Auto) 0.10 (0-0.50) K/uL Baso # (Auto) 0.05 (0-0.2) K/uL Immature Gran # (Auto) 0.09 (0.01-0.20) K/uL Sodium 140 (136-145) mmol/L Potassium 4.0 (3.5-5.1) mmol/L Chloride 107 (98-107) mmol/L Carbon Dioxide 24 (21-32) mmol/L Anion Gap 9 (3-11) BUN 21 (6-23) mg/dl Creatinine 1.33 H (0.6-1.2) mg/dl Est Cr Clr Drug Dosing 37.8 ml/min Est GFR ( Amer) 43.6 ml/min Est GFR (Non-Af Amer) 37.7 ml/min BUN/Creatinine Ratio 15.8 (10-20) Glucose 126 H (70-99(Fasting)) mg/dl Calcium 9.2 (8.6-10.3) mg/dl Total Bilirubin 1.2 H (0.2-1.0) mg/dl AST 22 (13-39) U/L ALT 13 (7-52) U/L Alkaline Phosphatase 87 (34-104) U/L Troponin I High Sens 10.1 (0-14) pg/ml Total Protein 6.8 (6.0-8.3) gm/dl Albumin 3.8 (3.4-5.0) gm/dl Globulin 3.0 (2.5-4.0) gm/dl Albumin/Globulin Ratio 1.3 (0.9-2) SARS-CoV-2, RNA, NAAT NEGATIVE (NEGATIVE) Administered Medications Discontinued Medications Acetaminophen (Acetaminophen 325 Mg Tab) 650 mg PO NOW STA Stop: 11/05/22 23:17 Last Admin: 11/05/22 23:34 Dose: 650 mg Documented By: RYAN Diphenhydramine HCl (Diphenhydramine Capsule 25 Mg Cap) 25 mg PO NOW ONE Stop: 11/05/22 23:17 Last Admin: 11/05/22 23:34 Dose: 25 mg Documented By: RYAN Sodium Chloride (Nss) 500 mls @ 999 mls/hr IV .Q31M GREGG Stop: 11/05/22 20:45 Last Infusion: 11/05/22 20:45 Dose: 0 mls/hr Documented By: Admin: 11/05/22 20:10 Dose: 999 mls/hr Documented By: MICHELLE Meclizine HCl (Meclizine Hcl 25 Mg Tab) 25 mg PO NOW STA Stop: 11/05/22 20:09 Last Admin: 11/05/22 20:47 Dose: Not Given Documented By: MICHELLE Meclizine HCl (Meclizine Hcl 25 Mg Tab) 25 mg PO NOW STA Stop: 11/05/22 21:56 Last Admin: 11/05/22 22:03 Dose: 25 mg Documented By: MICHELLE Ondansetron HCl (Ondansetron Inj 2 Mg/Ml 2 Ml Vial) 4 mg IV NOW STA Stop: 11/05/22 20:09 Last Admin: 11/05/22 20:22 Dose: 4 mg Documented By: MICHELLE Ondansetron HCl (Ondansetron Inj 2 Mg/Ml 2 Ml Vial) 4 mg IV NOW STA Stop: 11/05/22 21:21 Last Admin: 11/05/22 21:34 Dose: 4 mg Documented By: GIL Imaging Data Radiologist's Impression: Head CT 11/05/22 20:08 Exam(s): CT HEAD Without Contrast EXAM: CT Head Without Intravenous Contrast CLINICAL HISTORY: Reason for exam: dizzy. TECHNIQUE: Axial computed tomography images of the head/brain without intravenous contrast. CTDI is 37.95 mGy and DLP is 547.75 mGy-cm. Automated exposure control was utilized for the study. A dose lowering technique was utilized adhering to the principles of ALARA. COMPARISON: CT head on 06/02/2018 FINDINGS: Brain: No acute infarct or hemorrhage identified. No extra-axial fluid collection. No mass effect or midline shift. Scattered areas of hypoattenuation in the supratentorial white matter likely represent chronic small vessel ischemic changes. Ventricles and sulci: Prominence of the ventricles and sulci is likely secondary to cerebral volume loss. Bones: Normal. No bony lesion or acute fracture. Subcutaneous tissues: Normal. Sinuses: Mild mucosal thickening in the ethmoid air cells. Mastoid air cells: Normal. Orbits: Grossly unremarkable. Other: Atherosclerotic calcifications in the intracranial vasculature. IMPRESSION: 1. No acute intracranial abnormality. 2. Mild chronic small vessel ischemic changes and cerebral volume loss. Electronically signed by: Joann Scott M.D. 11/05/22 21:23 PM Discharge Plan Visit Data Chief Complaint: Vertigo ED Provider: Yaw Mcdermott Discharge Problem: Vertigo, Nausea, Bilateral tinnitus Patient Disposition: Being Evaluated by Hospitalist Discharge Instructions Interventions: ED Discharge Assessment Last Done: 11/06/22 00:09 Forms Stand Alone Forms: [facility] Prescriptions Prescriptions: No Action nystatin-triamcinolone 100,000-0.1 unit/g-% cream 1 appln TOP TID PRN (Reason: Skin Irritation) timolol 0.5 % drops 1 drp OPHTHALMIC (EYE) BID Qty: 45 1RF atorvastatin [Lipitor] 20 mg tablet 20 mg PO HS Qty: 90 3RF celecoxib [Celebrex] 200 mg capsule 200 mg PO QAM Qty: 90 1RF metoprolol succinate [Toprol XL] 50 mg tablet extended release 24 hr 50 mg PO QAM Qty: 90 1RF ipratropium bromide 21 mcg (0.03 %) spray,non-aerosol 1 spray INTRANASAL DAILY PRN (Reason: Nasal Congestion) Qty: 90 11RF fluticasone propionate 50 mcg/actuation spray,suspension 2 spray intranasal DAILY Qty: 15.8 6RF Rx Instructions: administer into each nostril mupirocin 2 % ointment 1 applic topical BID Qty: 15 1RF Rx Instructions: Apply small amount to the internal rim of the nostril qhs x 2 weeks then PRN bleeding mometasone 0.1 % cream 1 applic topical DAILY Qty: 15 1RF Rx Instructions: Apply a small amount to the external ear 1-2 x per week PRN itchy or dry ears. solifenacin 10 mg tablet 10 mg PO QAM Qty: 90 3RF multivitamin [One Daily Essential] tablet 1 tab PO DAILY aspirin 81 mg tablet,delayed release (DR/EC) 81 mg PO QPM Qty: 30 famotidine 40 mg tablet 40 mg PO BID Qty: 180 1RF albuterol sulfate 90 mcg/actuation HFA aerosol inhaler 1 inh inhalation QID PRN (Reason: shortness of breath or wheezing) Qty: 8.5 0RF Referrals Referrals: Radha Asher MD [Primary Care Provider] -
[2022-11-05 20:34] LABS: Basophils # (auto) 0.05 K/uL (0-0.2); Basophils % (auto) 0.9 %; Eosinophils % (auto) 1.8 %; Hematocrit (blood only) 40.6 % (37.0-47.0); Hemoglobin 13.4 g/dl (12.0-16.0); Immature Granulocytes # (auto) 0.09 K/uL (0.01-0.20); Immature Granulocytes % (auto) 1.6 %; Lymphocytes # (auto) 2.65 K/uL (1.2-3.4); Lymphocytes % (auto) 46.7 %; Mean Corpuscular Hemoglobin 30.8 pg (25.0-34.0); Mean Corpuscular Volume 93.3 fL (80.0-100.0); Mean Platelet Volume 10.3 fL (9.4-12.4); Monocytes # (auto) 0.52 K/uL (0.11-0.59); Monocytes % (auto) 9.2 %; Neutrophils # (auto) 2.27 K/uL (1.40-6.50); Neutrophils % (auto) 39.8 %; Platelet Count 145 K/uL (130-400); RDW Coefficient of Variation 13.2 % (11.5-14.5); RDW Standard Deviation 45.2 fL (36.4-46.3); Red Blood Count 4.35 M/uL (4.20-5.40); White Blood Count 5.68 K/ul (4.8-10.8)
[2022-11-05 20:47] LABS: Albumin Globulin Ratio 1.3 (0.9-2); Albumin Level 3.8 gm/dl (3.4-5.0); BUN Creatinine Ratio 15.8 (10-20); Bilirubin,Total 1.2 mg/dl (0.2-1.0); Calcium 9.2 mg/dl (8.6-10.3); Creatinine Clr Calc Pharmacy 37.8 ml/min; Est GFR (African American) 43.6 ml/min; Est GFR (Non-African American) 37.7 ml/min; Total Protein 6.8 gm/dl (6.0-8.3)
[2022-11-05 20:54] LABS: Troponin I High Sensitivity 10.1 pg/ml (0-14)
--- NOTE | 2022-11-05 21:24 | CT Scan Report ---
Exam(s): CT HEAD Without Contrast EXAM: CT Head Without Intravenous Contrast CLINICAL HISTORY: Reason for exam: dizzy. TECHNIQUE: Axial computed tomography images of the head/brain without intravenous contrast. CTDI is 37.95 mGy and DLP is 547.75 mGy-cm. Automated exposure control was utilized for the study. A dose lowering technique was utilized adhering to the principles of ALARA. COMPARISON: CT head on 06/02/2018 FINDINGS: Brain: No acute infarct or hemorrhage identified. No extra-axial fluid collection. No mass effect or midline shift. Scattered areas of hypoattenuation in the supratentorial white matter likely represent chronic small vessel ischemic changes. Ventricles and sulci: Prominence of the ventricles and sulci is likely secondary to cerebral volume loss. Bones: Normal. No bony lesion or acute fracture. Subcutaneous tissues: Normal. Sinuses: Mild mucosal thickening in the ethmoid air cells. Mastoid air cells: Normal. Orbits: Grossly unremarkable. Other: Atherosclerotic calcifications in the intracranial vasculature. IMPRESSION: 1. No acute intracranial abnormality. 2. Mild chronic small vessel ischemic changes and cerebral volume loss. Electronically signed by: Joann Scott M.D. 11/05/22 21:23 PM
[2022-11-05] MEDS ORDERED: ACETAMINOPHEN 325 MG TAB PO STA (23:16)
[2022-11-05] MEDS ORDERED: diphenhydrAMINE Capsule 25 MG CAP PO ONE (23:16)
--- NOTE | 2022-11-05 23:30 | History & Physical Report ---
Date of Service November 05, 2022 Assessment & Plan (1) Vertigo: (2) Nausea: (3) Bilateral tinnitus: (4) Stage 3b chronic kidney disease: (5) Vitamin D deficiency: (6) Sensorineural hearing loss (SNHL) of both ears: (7) Poor balance: (8) Hypercholesterolemia: (9) Hypertension: (10) CKD (chronic kidney disease) stage 3, GFR 30-59 ml/min: (11) CAD (coronary artery disease): Plan Severe vertigo/intractable nausea/severe fatigue/ambulatory dysfunction- Patient could not get significant relief from her symptoms in the ED Admit to observation She asked for Tylenol PM at this time, because she says it typically helps her symptoms NSS + KCl 20 mEq at 60 mils per hour x1 L Zofran 4 mg IV every 6 hours as needed Meclizine 25 mg p.o. every [address] head negative, other than showing chronic small vessel disease If symptoms are persistent in the morning, would consider an MRI of the brain at that time Hyperlipidemia- Continue atorvastatin 20 mg at bedtime Hypertension/bradycardia- Change metoprolol succinate from 50 mg every morning to 25 mg p.o. twice daily with hold parameters, due to heart rate in the low 50s while in the ED GERD- Continue famotidine 40 mg twice daily Bladder spasm- Continue Solifenacin Glaucoma- For now continue timolol, however, if bradycardia persists in spite of changing metoprolol dosing, may need to change eyedrops away from timolol Vasomotor rhinitis- Continue Flonase and Atrovent nasal sprays History of Present Illness Chief Complaint: The patient presents to the emergency department with complaint of intermittent episodes of short-lived vertigo over the past few weeks, then a very symptomatic severe episode today, feeling very dizzy and nauseous, that did not improve, and came to the ED for assessment Primary Care Provider: Radha Asher MD The patient is an 81-year-old female with a past medical history including bilateral tinnitus, stage IIIb CKD, vitamin D deficiency, vasomotor rhinitis, seasonal allergies, urge and stress urinary incontinence, SNHL bilaterally, imbalance, osteopenia, hypertension, hypercholesterolemia, colon polyps, CAD, acid reflux, recurrent pancreatitis, LDDD, lumbar spinal stenosis, lower extremity paresthesias and status post CABG. Patient has known history of vertigo with severe nausea and dizziness, however, her symptoms today were significantly more severe, she was unable to function at home, and came to the emergency department for assessment. In the emergency department, she received normal saline 500 mL, Zofran 4 mg IV x2 and meclizine 25 mg IV orally x2, and without significant symptom relief, was referred for evaluation for admission Allergies Allergy/AdvReac Type Severity Reaction Status Date / Time No Known Drug Allergies Allergy Unknown Verified 11/05/22 20:03 Home Medications Medication Instructions Recorded Confirmed Type multivitamin (One Daily Essential 1 tab PO DAILY 02/17/19 11/05/22 History tablet) aspirin 81 mg tablet,delayed 81 mg PO QPM #30 tabs 03/08/19 11/05/22 History release timolol 0.5 % eye drops 1 drp ophthalmic (eye) BID #45 mL 08/20/19 11/05/22 Rx nystatin-triamcinolone 100,000 1 appln topical TID PRN Skin 03/21/20 11/05/22 History unit/g-0.1 % topical cream Irritation atorvastatin 20 mg tablet (Lipitor) 20 mg PO HS #90 tabs 10/01/21 11/05/22 Rx ipratropium bromide 21 mcg (0.03 1 spray intranasal DAILY PRN Nasal 11/20/21 11/05/22 Rx %) nasal spray Congestion #90 mL fluticasone propionate 50 2 spray intranasal DAILY #15.8 01/22/22 11/05/22 Rx mcg/actuation nasal grams spray,suspension mometasone 0.1 % topical cream 1 applic topical DAILY #15 grams 01/22/22 11/05/22 Rx mupirocin 2 % topical ointment 1 applic topical BID #15 grams 01/22/22 11/05/22 Rx solifenacin 10 mg tablet 10 mg PO QAM #90 tabs 04/08/22 11/05/22 Rx celecoxib 200 mg capsule (Celebrex) 200 mg PO QAM #90 caps 05/30/22 11/05/22 Rx metoprolol succinate 50 mg 50 mg PO QAM #90 tabs 05/30/22 11/05/22 Rx tablet,extended release 24 hr (Toprol XL) albuterol sulfate 90 mcg/actuation 1 inh inhalation QID PRN shortness 07/29/22 11/05/22 Rx aerosol inhaler of breath or wheezing #8.5 grams famotidine 40 mg tablet 40 mg PO BID #180 tabs 09/26/22 11/05/22 Rx Past Med/Surg History Medical History (Updated 11/06/22 @ 00:43 by Yaw Mcdermott M.D.) Acid reflux Bradycardia CHRONIC/ASYMPTOMATIC ON BETA BRADY; BASELINE HR 40'S-50'S CAD (coronary artery disease) RCA 75% by cath 1996 Chronic constipation CKD (chronic kidney disease) STAGE III Environmental allergies GERD (gastroesophageal reflux disease) CONTROLLED Glaucoma Hiatal hernia Hx of myocardial infarction 1995- MEDICAL MANAGEMENT Hyperlipidemia Hypertension Obesity Osteoarthritis Pancreatitis Paresthesia of lower extremity Sensorineural hearing loss (SNHL) of both ears Speech impairment PT REPORTS SOMETIMES HAS TROUBLE FINDING WORDS, STARTED 1 YR AGO - HAS DISCUSSED WITH PCP Spinal stenosis, 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 minimal AP diameter=3.58mm Stage 3b chronic kidney disease Syncope Urge and stress incontinence Vitamin D deficiency Surgical History History of anesthesia reaction History of coronary artery bypass graft History of total knee replacement History of total right knee replacement (TKR) Hx of cardiac cath Hx of colonoscopy Hx of dilation and curettage Hx of oral surgery Hx of tonsillectomy Hx of tubal ligation S/P laparoscopic cholecystectomy (06/09/19) Family History Grandmother Family history of diabetes mellitus Father Myocardial infarction Cancer Brother Myocardial infarction Cancer Uncle Family hx of colon cancer Sister Breast cancer Other Heart disease Hypertension No family history of adverse response to anesthesia No family history of bleeding disorder Denies family history of Colon cancer Ovarian cancer Prostate cancer Social History (Updated 10/24/22 @ 13:53 by CATRACHITO Santos) Smoking Status: Never smoker Second Hand Exposure: No; Do You Dip or Chew Tobacco: No; Hx Alcohol Use: Yes Alcohol type: wine Alcohol Intake Frequency: Monthly or Less Hx Substance Use: No Preferred Language: Kiswahili Communication Ability: Effective Communication Ability Comment: TROUBLE FINDING WORDS SOMETIMES/SEE MED HX NOTE Visual Impairment: No Limitations Hearing Ability: Hard of Hearing 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 Required: No Beliefs That Will Affect Care: None marital status: / Current Living Situation: Alone current occupational status: retired Other Information That Helps Us Care for You: No Feels Safe at Home: Yes Safety Concerns: Feels Safe At This Time Childhood Exposure to Second-Hand Smoke: No Diet: regular Dental Care, Regularly: No Physical Activity Frequency: 1-2 Times per Week Seatbelt Use: always Sunscreen Use: Yes Assistive Devices: Cane, Denture - Upper, Denture - Lower, Glasses and Walker Review of Systems Review of Systems: The patient denies chest pain, palpitations, shortness of breath, dyspnea on exertion, cough, lower extremity swelling, sore throat, fevers, chills, sweats, vomiting, diarrhea , constipation, abdominal pain, pelvic pain, blood in urine or stool, dysuria, urinary frequency or urgency, memory loss, loss of consciousness, rash, abnormal bruising or bleeding, focal or generalized weakness, numbness or tingling in arms or legs, generalized arthralgias or myalgias, back or neck pain, or night sweats. The review of systems is otherwise negative other than for that already noted above, and at least 10 systems have been reviewed. Physical Exam Physical Exam: The patient is awake, alert and oriented 3, well developed and well nourished, normocephalic and atraumatic, lying in bed and in no acute distress. HEENT--PERRL, EOMI, mucous membranes and oropharynx dry. Neck--supple. No JVD. No bruits. Thyroid normal, trachea midline, no adenopathy. Heart--normal S1 and S2. No murmurs, rubs or gallops. Lungs--clear bilaterally, no respiratory distress, no accessory muscle use. Abdomen--normal bowel sounds and soft. Nontender. Nondistended, no hernias or masses, no organomegaly. Extremities--no cyanosis or clubbing. No edema. Dermatologic--normal skin turgor, normal color, no abnormal lymph nodes, no rash. Neurologic--cranial nerves II through XII grossly intact. Rheumatologic--normal range of motion. Psychiatric--normal affect. Results & Data Results & Data Vital Signs (Past 12 Hours) Vital Signs Temp Pulse Pulse Resp BP BP Pulse Ox 11/05/22 23:02 51 L 22 132/92 96 11/05/22 22:01 45 L 15 167/73 H 100 11/05/22 21:31 50 L 15 175/122 H 100 11/05/22 21:00 51 L 20 181/87 H 98 11/05/22 20:30 45 L 21 175/79 H 97 11/05/22 20:08 11/05/22 20:17 55 L 11/05/22 20:15 36.4 C L 56 L 20 172/73 H 96 11/05/22 20:11 88 L O2 Del Method O2 Flow Rate 11/05/22 23:02 Nasal Cannula 2 11/05/22 22:01 Nasal Cannula 2 11/05/22 21:31 Nasal Cannula 2 11/05/22 21:00 Nasal Cannula 2 11/05/22 20:30 Nasal Cannula 2 11/05/22 20:08 Room Air 11/05/22 20:17 11/05/22 20:15 Nasal Cannula 2 11/05/22 20:11 Nasal Cannula 0 Laboratory Results Laboratory Results WBC 5.68 K/ul (4.8-10.8) 11/05/22 20:13 RBC 4.35 M/uL (4.20-5.40) 11/05/22 20:13 Hgb 13.4 g/dl (12.0-16.0) 11/05/22 20:13 Hct 40.6 % (37.0-47.0) 11/05/22 20:13 MCV 93.3 fL (80.0-100.0) 11/05/22 20:13 MCH 30.8 pg (25.0-34.0) 11/05/22 20:13 MCHC 33.0 g/dL (32.0-36.0) 11/05/22 20:13 RDW Std Deviation 45.2 fL (36.4-46.3) 11/05/22 20:13 RDW Coeff of Valorie 13.2 % (11.5-14.5) 11/05/22 20:13 Plt Count 145 K/uL (130-400) 11/05/22 20:13 MPV 10.3 fL (9.4-12.4) 11/05/22 20:13 Immature Gran % (Auto) 1.6 % 11/05/22 20:13 Neut % (Auto) 39.8 % 11/05/22 20:13 Lymph % (Auto) 46.7 % 11/05/22 20:13 [place] % (Auto) 9.2 % 11/05/22 20:13 Eos % (Auto) 1.8 % 11/05/22 20:13 Baso % (Auto) 0.9 % 11/05/22 20:13 Neut # (Auto) 2.27 K/uL (1.40-6.50) 11/05/22 20:13 Lymph # (Auto) 2.65 K/uL (1.2-3.4) 11/05/22 20:13 [place] # (Auto) 0.52 K/uL (0.11-0.59) 11/05/22 20:13 Eos # (Auto) 0.10 K/uL (0-0.50) 11/05/22 20:13 Baso # (Auto) 0.05 K/uL (0-0.2) 11/05/22 20:13 Immature Gran # (Auto) 0.09 K/uL (0.01-0.20) 11/05/22 20:13 Sodium 140 mmol/L (136-145) 11/05/22 20:13 Potassium 4.0 mmol/L (3.5-5.1) 11/05/22 20:13 Chloride 107 mmol/L (98-107) 11/05/22 20:13 Carbon Dioxide 24 mmol/L (21-32) 11/05/22 20:13 Anion Gap 9 (3-11) 11/05/22 20:13 BUN 21 mg/dl (6-23) 11/05/22 20:13 Creatinine 1.33 mg/dl (0.6-1.2) H 11/05/22 20:13 Est Cr Clr Drug Dosing 37.8 ml/min 11/05/22 20:13 Est GFR ( Amer) 43.6 ml/min 11/05/22 20:13 Est GFR (Non-Af Amer) 37.7 ml/min 11/05/22 20:13 BUN/Creatinine Ratio 15.8 (10-20) 11/05/22 20:13 Glucose 126 mg/dl (70-99(Fasting)) H 11/05/22 20:13 Calcium 9.2 mg/dl (8.6-10.3) 11/05/22 20:13 Total Bilirubin 1.2 mg/dl (0.2-1.0) H 11/05/22 20:13 AST 22 U/L (13-39) 11/05/22 20:13 ALT 13 U/L (7-52) 11/05/22 20:13 Alkaline Phosphatase 87 U/L (34-104) 11/05/22 20:13 Troponin I High Sens 10.1 pg/ml (0-14) 11/05/22 20:13 Total Protein 6.8 gm/dl (6.0-8.3) 11/05/22 20:13 Albumin 3.8 gm/dl (3.4-5.0) 11/05/22 20:13 Globulin 3.0 gm/dl (2.5-4.0) 11/05/22 20:13 Albumin/Globulin Ratio 1.3 (0.9-2) 11/05/22 20:13 Urine Color Yellow 11/06/22 01:00 Urine Appearance Cloudy (Clear) A 11/06/22 01:00 Urine pH 5.5 (4.5-7.5) 11/06/22 01:00 Ur Specific [place] 1.015 (1.000-1.030) 11/06/22 01:00 Urine Protein Negative (Negative) 11/06/22 01:00 Urine Glucose (UA) Negative (Negative) 11/06/22 01:00 Urine Ketones Negative (Negative) 11/06/22 01:00 Urine Blood Negative (Negative) 11/06/22 01:00 Urine Nitrite Positive (Negative) A 11/06/22 01:00 Urine Bilirubin Negative (Negative) 11/06/22 01:00 Urine Urobilinogen Negative (Negative) 11/06/22 01:00 Ur Leukocyte Esterase 2+ (Negative) H 11/06/22 01:00 Urine WBC (Auto) >30 /hpf (0-5) H 11/06/22 01:00 Urine RBC (Auto) 5-10 /hpf (0-4) H 11/06/22 01:00 U Hyaline Cast (Auto) 1-5 /lpf (0-5) 11/06/22 01:00 U Epithel Cells (Auto) 0-5 /lpf (0-5) 11/06/22 01:00 Urine Bacteria (Auto) 4+ (Negative) H 11/06/22 01:00 SARS-CoV-2, RNA, NAAT NEGATIVE (NEGATIVE) 11/05/22 20:[address] 11/05/22 20:08 Exam(s): CT HEAD Without Contrast EXAM: CT Head Without Intravenous Contrast CLINICAL HISTORY: Reason for exam: dizzy. TECHNIQUE: Axial computed tomography images of the head/brain without intravenous contrast. CTDI is 37.95 mGy and DLP is 547.75 mGy-cm. Automated exposure control was utilized for the study. A dose lowering technique was utilized adhering to the principles of ALARA. COMPARISON: CT head on 06/02/2018 FINDINGS: Brain: No acute infarct or hemorrhage identified. No extra-axial fluid collection. No mass effect or midline shift. Scattered areas of hypoattenuation in the supratentorial white matter likely represent chronic small vessel ischemic changes. Ventricles and sulci: Prominence of the ventricles and sulci is likely secondary to cerebral volume loss. Bones: Normal. No bony lesion or acute fracture. Subcutaneous tissues: Normal. Sinuses: Mild mucosal thickening in the ethmoid air cells. Mastoid air cells: Normal. Orbits: Grossly unremarkable. Other: Atherosclerotic calcifications in the intracranial vasculature. IMPRESSION: 1. No acute intracranial abnormality. 2. Mild chronic small vessel ischemic changes and cerebral volume loss. Electronically signed by: Joann Scott M.D. 11/05/22 21:23 PM Code Status & VTE Plan Code Status Full code VTE Prophylaxis Plan VTE Prophylaxis will be ordered: Yes PG Care Time/CCT Total # of Minutes Spent Total Time Spent with Patient: Total time spent is greater than 50% in coordination of care (as documented) at patient's floor/unit and/or counseling patient: Coding Level of Care Code 18368 INT INP/OBS CARE 3/75MIN Diagnoses Vertigo R42 Nausea R11.0 Bilateral tinnitus H93.13 Stage 3b chronic kidney disease N18.32 Vitamin D deficiency E55.9 Sensorineural hearing loss (SNHL) of both ears H90.3 Poor balance R26.89 Hypercholesterolemia E78.00 Hypertension I10 Hypertension type: essential hypertension CKD (chronic kidney disease) stage 3, GFR 30-59 ml/min N18.3 CAD (coronary artery disease) I25.10 Coronary Disease-Associated Artery/Lesion type: [place] artery [place] vs. transplanted heart: [place] heart Associated angina: without angina (9) Hypertension Hypertension type: essential hypertension Qualified Code(s): I10 - Essential (primary) hypertension (11) CAD (coronary artery disease) Coronary Disease-Associated Artery/Lesion type: [place] artery [place] vs. transplanted heart: [place] heart Associated angina: without angina Qualified Code(s): I25.10 - Atherosclerotic heart disease of [place] coronary artery without angina pectoris
[2022-11-06] MEDS ORDERED: ALBUTEROL HFA 8 GM INHALER INH PRN (00:54)
[2022-11-06] MEDS ORDERED: ACETAMINOPHEN 325 MG TAB PO PRN (00:54)
[2022-11-06] MEDS ORDERED: NSS + 20MEQ KCL 20 MEQ/1,000 ML BAG IV SCH (00:54)
[2022-11-06] MEDS ORDERED: IPRATROPIUM BROMIDE NASAL SPRAY 0.06% 15ML NAE PRN (01:53)
[2022-11-06 01:54] LABS: Appearance Urine Cloudy (Clear); Bacteria Urine Automated 4+ (Negative); Bilirubin Urine Negative (Negative); Blood Urine Negative (Negative); Color Urine Yellow; Epithelial Cell Urine Auto 0-5 /lpf (0-5); Glucose Urine UA Negative (Negative); Ketones Urine Negative (Negative); Leukocyte Esterase Urine 2+ (Negative); Nitrite Urine Positive (Negative); Protein Urine Negative (Negative); Specific Gravity Urine 1.015 (1.000-1.030); Urobilinogen Urine Negative (Negative); WBC Urine Automated >30 /hpf (0-5); pH Urine 5.5 (4.5-7.5)
[2022-11-06] MEDS ORDERED: MECLIZINE HCL 25 MG TAB PO PRN (04:00)
[2022-11-06] MEDS ORDERED: ONDANSETRON INJ 2 MG/ML 2 ML VIAL IV PRN (06:00)
[2022-11-06 06:30] LABS: Basophils # (auto) 0.03 K/uL (0-0.2); Basophils % (auto) 0.6 %; Eosinophils # (auto) 0.01 K/uL (0-0.50); Eosinophils % (auto) 0.2 %; Hematocrit (blood only) 36.9 % (37.0-47.0); Immature Granulocytes # (auto) 0.02 K/uL (0.01-0.20); Immature Granulocytes % (auto) 0.4 %; Lymphocytes # (auto) 0.97 K/uL (1.2-3.4); Lymphocytes % (auto) 19.7 %; Mean Corpuscular Hemoglobin 30.5 pg (25.0-34.0); Mean Corpuscular Hgb Conc 32.5 g/dL (32.0-36.0); Mean Corpuscular Volume 93.9 fL (80.0-100.0); Mean Platelet Volume 10.6 fL (9.4-12.4); Monocytes # (auto) 0.36 K/uL (0.11-0.59); Monocytes % (auto) 7.3 %; Neutrophils # (auto) 3.54 K/uL (1.40-6.50); Neutrophils % (auto) 71.8 %; Platelet Count 132 K/uL (130-400); RDW Coefficient of Variation 13.2 % (11.5-14.5); Red Blood Count 3.93 M/uL (4.20-5.40); White Blood Count 4.93 K/ul (4.8-10.8)
[2022-11-06 06:47] LABS: Albumin Level 3.3 gm/dl (3.4-5.0); BUN Creatinine Ratio 16.1 (10-20); Calcium 8.2 mg/dl (8.6-10.3); Creatinine Clr Calc Pharmacy 33.8 ml/min; Est GFR (African American) 47.5 ml/min; Magnesium 1.8 mg/dl (1.7-2.4); Phosphorus 4.3 mg/dl (2.5-4.9); Potassium 4.9 mmol/L (3.5-5.1)
[2022-11-06] MEDS ORDERED: HEPARIN SOD 5,000 UNIT/0.5 ML VIAL SQ SCH (09:00)
[2022-11-06] MEDS ORDERED: FAMOTIDINE 40 MG TABLET PO SCH (09:00)
[2022-11-06] MEDS ORDERED: TIMOLOL MALEATE 0.5% OP SOLN 5 ML BTL OP SCH (09:00)
[2022-11-06] MEDS ORDERED: MUPIROCIN 2% OINT 22 GM TUBE TOP SCH (09:00)
[2022-11-06] MEDS ORDERED: METOPROLOL SUCC 25MG EXT REL TAB PO SCH (09:00)
[2022-11-06] MEDS ORDERED: CEROVITE ADV FORMULA TAB PO SCH (09:00)
[2022-11-06] MEDS ORDERED: CeleBREX 200 MG CAP PO SCH (09:00)
[2022-11-06] MEDS ORDERED: FLUTICASONE PROPIONATE NA SPR 16 GM BTL NAE SCH (09:00)
--- NOTE | 2022-11-06 10:10 | Hospitalist Progress Note ---
Date of Service November 06, 2022 Assessment & Plan (1) Vertigo: Plan: 81F with past medical history of bilateral sensorineural hearing loss, CKD 3B, urge/stress urinary incontinence, hypertension, hyperlipidemia, CAD, GERD, lumbar DDD, who presented with acute onset vertigo and nausea. Vertigo, nausea -Occurred acutely. ED diagnostic work-up negative. -Prior history of vertigo resolved without treatment. -Appears positionally induced. Alleviated by closing eyes, standing still. -Overall symptom pattern appears consistent with BPPV. * As needed Zofran IV * Meclizine 25 mg every 6 hours as needed * Attempt Arlene maneuver at bedside. * Should symptoms persist, consider betahistine, discharge for close outpatient follow-up. Hyperlipidemia -Takes atorvastatin 20 mg nightly. * Continue home regimen. Hypertension/bradycardia -Patient takes metoprolol succinate 50 mg every morning. -Changed to tartrate 25 mg twice daily due to bradycardia at admission. * Continue as ordered. GERD -Patient is on famotidine 50 mg twice daily at home. * Continue home regimen. Urinary incontinence -Appears to be combination of urge/stress. -Takes Solifenacin 10 mg every morning at home. * Continue home regimen. Glaucoma -Chronic. Patient takes timolol eyedrops at home. * Consider discontinuing, replacing with alpha-2 agonist (apraclonidine, brimonidine) in light of bradycardic presentation on metoprolol. Code: Full code Dispo: Med-Surg telemetry FEN/GI: Heart healthy DVT Prophylaxis: Lovenox 40 mg q24h PT/OT: Yes Consults: None Case Management: No (2) Nausea: (3) Sensorineural hearing loss (SNHL) of both ears: (4) Reflex incontinence: (5) Hypercholesterolemia: (6) Acid reflux: (7) Bladder spasm: (8) Glaucoma: Admission and Anticipated Discharge Date Admission Date: November 05, 2022 Supervising Physician Co-Signing Physician Notes I personally examined the patient and verified all mckeon points of history and exam, discussed case, and agree with decision making with Dr Owens. Vertigo better, feels up to going home. Would like to go home. Follows chronically with Dr. Mckee, although has never mentioned vertigo episodes to her. Apparently these have been happening more and more often over the last few monthsmaybe on average once a week now. Never quite as intense as before though. Vitals noted, in general she is awake and alert pleasant no distress. HEENT normocephalic atraumatic mucous membranes moist. Breathing unlabored no accessory muscle use good effort. Skin shows no rashes no pallor or icterus. Neuro without focal deficits. VertigoBPPV versus [place]'s most likely. Safe/stable for home. Outpatient follow-up with PCP and ENT. Given her age and other vascular disease, posterior circulation vascular disease was consideredbut with no stroke on CT combined with chronicity of her episodes of symptoms, combined with the fact the symptoms are episodic rather than chronicthis seems extremely unlikely. Further, management would not have a whole lot of impact given that she is already on an antiplatelet and a statin, so there will be little more that we could do. Again, however, I strongly suspect an inner ear driven vertigo. Safe for home. Otherwise as above. Subjective Patient is awake and in bed on arrival this morning. She reports improved vertigo and nausea at this time, though she has not attempted to ambulate. She denies LOC, chest pain, diaphoresis, shortness of breath, or emesis. Review of Systems Review of Systems: All systems reviewed & are unremarkable except as noted in HPI & below Physical Exam Physical Exam: General: No acute distress HEENT: PERRLA. Normal conjunctiva, anicteric sclera. Oropharynx normal. Respiratory: Normal respiratory effort, CTABL. Cardiovascular: RRR without murmurs, gallops, or rubs. No edema. GI: Soft abdomen with normal bowel sounds heard on auscultation. Nontender x4 quadrants Neuro: Alert and oriented x3. Results & Data Results & Data Vital Signs (Past 12 Hours) Vital Signs Temp Pulse Pulse Resp BP BP Pulse Ox 11/06/22 07:55 36.6 C 53 L 18 160/74 H 97 11/06/22 07:00 46 L 11/06/22 04:08 36.3 C L 49 L 16 132/70 97 11/06/22 00:38 77 11/06/22 01:14 36.4 C L 49 L 16 151/73 H 96 11/06/22 00:01 44 L 22 132/83 95 11/06/22 00:00 45 L 17 94 11/05/22 23:31 48 L 25 H 173/58 H 97 11/05/22 23:30 48 L 22 96 11/05/22 23:02 51 L 22 132/92 96 O2 Del Method O2 Flow Rate 11/06/22 07:55 Room Air 11/06/22 07:00 11/06/22 04:08 Room Air 11/06/22 00:38 11/06/22 01:14 Room Air 11/06/22 00:01 Room Air 11/06/22 00:00 Room Air 11/05/22 23:31 Room Air 11/05/22 23:30 Room Air 11/05/22 23:02 Nasal Cannula 2 Laboratory Results 11/06/22 11/06/22 11/06/22 Range/Units 05:43 05:43 01:00 WBC 4.93 (4.8-10.8) K/ul RBC 3.93 L (4.20-5.40) M/uL Hgb 12.0 (12.0-16.0) g/dl Hct 36.9 L (37.0-47.0) % MCV 93.9 (80.0-100.0) fL MCH 30.5 (25.0-34.0) pg MCHC 32.5 (32.0-36.0) g/dL RDW Std Deviation 46.0 (36.4-46.3) fL RDW Coeff of Valorie 13.2 (11.5-14.5) % Plt Count 132 (130-400) K/uL MPV 10.6 (9.4-12.4) fL Immature Gran % (Auto) 0.4 % Neut % (Auto) 71.8 % Lymph % (Auto) 19.7 % [place] % (Auto) 7.3 % Eos % (Auto) 0.2 % Baso % (Auto) 0.6 % Neut # (Auto) 3.54 (1.40-6.50) K/uL Lymph # (Auto) 0.97 L (1.2-3.4) K/uL [place] # (Auto) 0.36 (0.11-0.59) K/uL Eos # (Auto) 0.01 (0-0.50) K/uL Baso # (Auto) 0.03 (0-0.2) K/uL Immature Gran # (Auto) 0.02 (0.01-0.20) K/uL Sodium 139 (136-145) mmol/L Potassium 4.9 D (3.5-5.1) mmol/L Chloride 109 H (98-107) mmol/L Carbon Dioxide 25 (21-32) mmol/L Anion Gap 5 (3-11) BUN 20 (6-23) mg/dl Creatinine 1.24 H (0.6-1.2) mg/dl Est Cr Clr Drug Dosing 33.8 ml/min Est GFR ( Amer) 47.5 ml/min Est GFR (Non-Af Amer) 41.0 ml/min BUN/Creatinine Ratio 16.1 (10-20) Glucose 104 H (70-99(Fasting)) mg/dl Calcium 8.2 L (8.6-10.3) mg/dl Phosphorus 4.3 (2.5-4.9) mg/dl Magnesium 1.8 (1.7-2.4) mg/dl Total Bilirubin (0.2-1.0) mg/dl AST (13-39) U/L ALT (7-52) U/L Alkaline Phosphatase (34-104) U/L Troponin I High Sens (0-14) pg/ml Total Protein (6.0-8.3) gm/dl Albumin 3.3 L (3.4-5.0) gm/dl Globulin (2.5-4.0) gm/dl Albumin/Globulin Ratio (0.9-2) Urine Color Yellow Urine Appearance Cloudy A (Clear) Urine pH 5.5 (4.5-7.5) Ur Specific [place] 1.015 (1.000-1.030) Urine Protein Negative (Negative) Urine Glucose (UA) Negative (Negative) Urine Ketones Negative (Negative) Urine Blood Negative (Negative) Urine Nitrite Positive A (Negative) Urine Bilirubin Negative (Negative) Urine Urobilinogen Negative (Negative) Ur Leukocyte Esterase 2+ H (Negative) Urine WBC (Auto) >30 H (0-5) /hpf Urine RBC (Auto) 5-10 H (0-4) /hpf U Hyaline Cast (Auto) 1-5 (0-5) /lpf U Epithel Cells (Auto) 0-5 (0-5) /lpf Urine Bacteria (Auto) 4+ H (Negative) SARS-CoV-2, RNA, NAAT (NEGATIVE) 11/05/22 11/05/22 11/05/22 Range/Units 20:25 20:13 20:13 WBC 5.68 (4.8-10.8) K/ul RBC 4.35 (4.20-5.40) M/uL Hgb 13.4 (12.0-16.0) g/dl Hct 40.6 (37.0-47.0) % MCV 93.3 (80.0-100.0) fL MCH 30.8 (25.0-34.0) pg MCHC 33.0 (32.0-36.0) g/dL RDW Std Deviation 45.2 (36.4-46.3) fL RDW Coeff of Valorie 13.2 (11.5-14.5) % Plt Count 145 (130-400) K/uL MPV 10.3 (9.4-12.4) fL Immature Gran % (Auto) 1.6 % Neut % (Auto) 39.8 % Lymph % (Auto) 46.7 % [place] % (Auto) 9.2 % Eos % (Auto) 1.8 % Baso % (Auto) 0.9 % Neut # (Auto) 2.27 (1.40-6.50) K/uL Lymph # (Auto) 2.65 (1.2-3.4) K/uL [place] # (Auto) 0.52 (0.11-0.59) K/uL Eos # (Auto) 0.10 (0-0.50) K/uL Baso # (Auto) 0.05 (0-0.2) K/uL Immature Gran # (Auto) 0.09 (0.01-0.20) K/uL Sodium 140 (136-145) mmol/L Potassium 4.0 (3.5-5.1) mmol/L Chloride 107 (98-107) mmol/L Carbon Dioxide 24 (21-32) mmol/L Anion Gap 9 (3-11) BUN 21 (6-23) mg/dl Creatinine 1.33 H (0.6-1.2) mg/dl Est Cr Clr Drug Dosing 37.8 ml/min Est GFR ( Amer) 43.6 ml/min Est GFR (Non-Af Amer) 37.7 ml/min BUN/Creatinine Ratio 15.8 (10-20) Glucose 126 H (70-99(Fasting)) mg/dl Calcium 9.2 (8.6-10.3) mg/dl Phosphorus (2.5-4.9) mg/dl Magnesium (1.7-2.4) mg/dl Total Bilirubin 1.2 H (0.2-1.0) mg/dl AST 22 (13-39) U/L ALT 13 (7-52) U/L Alkaline Phosphatase 87 (34-104) U/L Troponin I High Sens 10.1 (0-14) pg/ml Total Protein 6.8 (6.0-8.3) gm/dl Albumin 3.8 (3.4-5.0) gm/dl Globulin 3.0 (2.5-4.0) gm/dl Albumin/Globulin Ratio 1.3 (0.9-2) Urine Color Urine Appearance (Clear) Urine pH (4.5-7.5) Ur Specific [place] (1.000-1.030) Urine Protein (Negative) Urine Glucose (UA) (Negative) Urine Ketones (Negative) Urine Blood (Negative) Urine Nitrite (Negative) Urine Bilirubin (Negative) Urine Urobilinogen (Negative) Ur Leukocyte Esterase (Negative) Urine WBC (Auto) (0-5) /hpf Urine RBC (Auto) (0-4) /hpf U Hyaline Cast (Auto) (0-5) /lpf U Epithel Cells (Auto) (0-5) /lpf Urine Bacteria (Auto) (Negative) SARS-CoV-2, RNA, NAAT NEGATIVE (NEGATIVE) Resident Activity Tracking Resident Involvement: Resident Care Provided Care Provided: Adult Hospital Medicine (6) Acid reflux Esophagitis presence: esophagitis presence not specified Qualified Code(s): K21.9 - Gastro-esophageal reflux disease without esophagitis
--- NOTE | 2022-11-06 17:06 | Billing Data ---
Date of Service November 06, 2022 Coding Level of Care Code 37791 IN/OBS DISCH 30 MIN/LESS
--- NOTE | 2022-11-06 17:51 | Discharge Summary ---
Date of Service November 06, 2022 Admission HPI Per Admitting Provider The patient is an 81-year-old female with a past medical history including bilateral tinnitus, stage IIIb CKD, vitamin D deficiency, vasomotor rhinitis, seasonal allergies, urge and stress urinary incontinence, SNHL bilaterally, imbalance, osteopenia, hypertension, hypercholesterolemia, colon polyps, CAD, acid reflux, recurrent pancreatitis, LDDD, lumbar spinal stenosis, lower extremity paresthesias and status post CABG. Patient has known history of vertigo with severe nausea and dizziness, however, her symptoms today were significantly more severe, she was unable to function at home, and came to the emergency department for assessment. In the emergency department, she received normal saline 500 mL, Zofran 4 mg IV x2 and meclizine 25 mg IV orally x2, and without significant symptom relief, was referred for evaluation for admission Admission Exam Per Admitting Provider The patient is awake, alert and oriented 3, well developed and well nourished, normocephalic and atraumatic, lying in bed and in no acute distress. HEENT--PERRL, EOMI, mucous membranes and oropharynx dry. Neck--supple. No JVD. No bruits. Thyroid normal, trachea midline, no adenopathy. Heart--normal S1 and S2. No murmurs, rubs or gallops. Lungs--clear bilaterally, no respiratory distress, no accessory muscle use. Abdomen--normal bowel sounds and soft. Nontender. Nondistended, no hernias or masses, no organomegaly. Extremities--no cyanosis or clubbing. No edema. Dermatologic--normal skin turgor, normal color, no abnormal lymph nodes, no rash. Neurologic--cranial nerves II through XII grossly intact. Rheumatologic--normal range of motion. Psychiatric--normal affect. Principal Diagnosis Vertigo Discharge Exam General: No acute distress HEENT: PERRLA. Normal conjunctiva, anicteric sclera. Oropharynx normal. Respiratory: Normal respiratory effort, CTABL. Cardiovascular: RRR without murmurs, gallops, or rubs. No edema. GI: Soft abdomen with normal bowel sounds heard on auscultation. Nontender x4 quadrants Neuro: Alert and oriented x3. No nystagmus. No gait abnormalities. Discharge Data Allergies Allergy/AdvReac Type Severity Reaction Status Date / Time No Known Drug Allergies Allergy Unknown Verified 11/05/22 20:03 Consultations 11/05/22 23:06 ED Decision to Admit Stat 11/06/22 17:03 Consult [employer] retail product advisor Routine Ordered Studies 11/05/22 20:08 CT head/brain wo con Stat Hospital Course (1) Vertigo: 81F with past medical history of bilateral sensorineural hearing loss, CKD 3B, urge/stress urinary incontinence, hypertension, hyperlipidemia, CAD, GERD, lumbar DDD, who presented with acute onset vertigo and nausea. Vertigo, nausea -Occurred acutely. ED diagnostic work-up negative. -Prior history of vertigo resolved without treatment. -Appears positionally induced. Alleviated by closing eyes, standing still. -Overall symptom pattern appears consistent with BPPV. Ddx also includes Meniere's disease. * As needed Zofran IV * Meclizine 25 mg every 6 hours as needed. Zero administrations after admission. Consider resolved Hyperlipidemia -Takes atorvastatin 20 mg nightly. * Continue home regimen. Hypertension/bradycardia -Patient takes metoprolol succinate 50 mg every morning. -Changed to tartrate 25 mg twice daily due to bradycardia at admission. * Continue as ordered. GERD -Patient is on famotidine 50 mg twice daily at home. * Continue home regimen. Urinary incontinence -Appears to be combination of urge/stress. -Takes Solifenacin 10 mg every morning at home. * Continue home regimen. Glaucoma -Chronic. Patient takes timolol eyedrops at home. * Consider discontinuing, replacing with alpha-2 agonist (apraclonidine, brimonidine) in light of bradycardic presentation in patient already on beta carrol. (2) Nausea: (3) Sensorineural hearing loss (SNHL) of both ears: (4) Reflex incontinence: (5) Hypercholesterolemia: (6) Acid reflux: (7) Bladder spasm: (8) Glaucoma: Total Time Total Time Spent Total Time Spent (In Minutes): Please see attending attestation. Discharge Plan Discharge Items Patient Disposition: Home - Self-Care Reason For Visit: VERTIGO, NEAR SYNCOPE Discharge Diagnosis: Vertigo Activity: Per Instructions section Non-emergency contact: Primary Care Provider Call non-emergency contact if: your symptoms worsen Follow-up/Referrals: Radha Asher MD [Primary Care Provider] - Diet: Regular Addtl Attending Provider Instructions: Dear Ciera, You came to the hospital because of sudden dizziness and nausea that lead to loss of balance. You were evaluated in emergency room and did not appear to have any evidence of neurological damage on imaging of your head. You were given some medicines and admitted to the hospital for further observation. Now that your symptoms have resolved, we believe you can be safely discharged home. Please schedule a follow-up appointment with your primary care physician, Dr. Asher, as soon as possible. If your symptoms persist or become worse in the next few days, you should contact your PCP for a clinic visit. We have asked our nurse navigator to schedule you for an appointment with an Ear, Nose & Throat (ENT) specialist, Dr. Dorain Mckee to evaluate your symptoms, since this has been happening more chronically than initially thought. The specialist's office will be in touch with you to schedule an appointment in the future. If you do not hear from them in 2 business days, you may call their office at [phone] to be scheduled. We made no changes to your medications. You may continue taking your medications as instructed unless otherwise directed by your PCP. Thank you for trusting us with your care. Pending Studies at Discharge: No Stand-Alone Forms: My [facility] [employer] Smoking Cessation Medications and DC Order Prescriptions: Continued nystatin-triamcinolone 100,000-0.1 unit/g-% cream 1 appln TOP TID PRN (Reason: Skin Irritation) timolol 0.5 % drops 1 drp OPHTHALMIC (EYE) BID Qty: 45 1RF atorvastatin [Lipitor] 20 mg tablet 20 mg PO HS Qty: 90 3RF celecoxib [Celebrex] 200 mg capsule 200 mg PO QAM Qty: 90 1RF metoprolol succinate [Toprol XL] 50 mg tablet extended release 24 hr 50 mg PO QAM Qty: 90 1RF ipratropium bromide 21 mcg (0.03 %) spray,non-aerosol 1 spray INTRANASAL DAILY PRN (Reason: Nasal Congestion) Qty: 90 11RF fluticasone propionate 50 mcg/actuation spray,suspension 2 spray intranasal DAILY Qty: 15.8 6RF Rx Instructions: administer into each nostril mupirocin 2 % ointment 1 applic topical BID Qty: 15 1RF Rx Instructions: Apply small amount to the internal rim of the nostril qhs x 2 weeks then PRN bleeding mometasone 0.1 % cream 1 applic topical DAILY Qty: 15 1RF Rx Instructions: Apply a small amount to the external ear 1-2 x per week PRN itchy or dry ears. solifenacin 10 mg tablet 10 mg PO QAM Qty: 90 3RF multivitamin [One Daily Essential] tablet 1 tab PO DAILY aspirin 81 mg tablet,delayed release (DR/EC) 81 mg PO QPM Qty: 30 famotidine 40 mg tablet 40 mg PO BID Qty: 180 1RF albuterol sulfate 90 mcg/actuation HFA aerosol inhaler 1 inh inhalation QID PRN (Reason: shortness of breath or wheezing) Qty: 8.5 0RF Discharge Orders: Discharge Order (Routine); Ordered 11/06/22 Ordered By: Merritt Owens Admission Data Admit Date/Time: 11/05/22 23:27 Attending Provider: Moe Oconnell Admit Provider: Tone Cardenas Primary Care Provider: Radha Asher Other Providers: Tone Cradenas Supervising Physician Co-Signing Physician Notes I personally examined the patient and verified all mckeon points of history and exam, discussed case, and agree with decision making with Dr Owens. Vertigo better, feels up to going home. Would like to go home. Follows chronically with Dr. Mckee, although has never mentioned vertigo episodes to her. Apparently these have been happening more and more often over the last few monthsmaybe on average once a week now. Never quite as intense as before though. Vitals noted, in general she is awake and alert pleasant no distress. HEENT normocephalic atraumatic mucous membranes moist. Breathing unlabored no accessory muscle use good effort. Skin shows no rashes no pallor or icterus. Neuro without focal deficits. VertigoBPPV versus Mnire's most likely. Safe/stable for home. Outpatient follow-up with PCP and ENT. Given her age and other vascular disease, posterior circulation vascular disease was consideredbut with no stroke on CT combined with chronicity of her episodes of symptoms, combined with the fact the symptoms are episodic rather than chronicthis seems extremely unlikely. Further, management would not have a whole lot of impact given that she is already on an antiplatelet and a statin, so there will be little more that we could do. Again, however, I strongly suspect an inner ear driven vertigo. Safe for home. Otherwise as above. Resident Activity Tracking Resident Involvement: Resident Care Provided Care Provided: Adult Hospital Medicine
[2022-11-06] MEDS ORDERED: ASPIRIN 81 MG ECTAB PO SCH (21:00)
[2022-11-06] MEDS ORDERED: ATORVASTATIN 20 MG TAB PO SCH (21:00)
--- NOTE | 2022-11-06 23:19 | Electrocardiogram Report ---
Test Reason : Blood Pressure : / mmHG Vent. Rate : 049 BPM Atrial Rate : 049 BPM P-R Int : 260 ms QRS Dur : 084 ms QT Int : 490 ms P-R-T Axes : 044 005 022 degrees QTc Int : 442 ms Sinus bradycardia with 1st degree A-V block Possible Anterior infarct (cited on or before 20-AUG-2021) Abnormal ECG When compared with ECG of 20-AUG-2021 20:56, No significant change was found Confirmed by Jaret Lnez ([id number]) on 11/06/2022 11:19:16 PM Referred By: REFERRED SELF Confirmed By:Jaret Lenz
[2022-11-07] MEDS ORDERED: ENOXAPARIN INJ 40 MG/0.4 ML SYR SQ SCH (09:00)
== END 2022-11-06 18:14 | disposition home or self-care (01) ==
LOC: ED 19:55 → 2W 19:55 → SUATTDRO 23:27 → 2W 11-06 00:09

== ENCOUNTER 2024-10-23 13:58 | Inpatient (IN) ==
[2024-10-23 14:17] LABS: Basophils # (auto) 0.01 K/uL (0.00-0.20); Basophils % (auto) 0.1 %; Hematocrit (blood only) 41.7 % (37.0-47.0); Hemoglobin 13.9 g/dl (12.0-16.0); Immature Granulocytes # (auto) 0.02 K/uL (0.01-0.20); Immature Granulocytes % (auto) 0.2 %; Lymphocytes # (auto) 1.08 K/uL (1.20-3.40); Lymphocytes % (auto) 12.8 %; Mean Corpuscular Hemoglobin 31.7 pg (25.0-34.0); Mean Corpuscular Hgb Conc 33.3 g/dL (32.0-36.0); Mean Corpuscular Volume 95.2 fL (80.0-100.0); Mean Platelet Volume 9.6 fL (9.4-12.4); Monocytes # (auto) 0.46 K/uL (0.11-0.59); Monocytes % (auto) 5.5 %; Neutrophils # (auto) 6.87 K/uL (1.40-6.50); Neutrophils % (auto) 81.4 %; Platelet Count 172 K/uL (130-400); RDW Coefficient of Variation 13.1 % (11.5-14.5); RDW Standard Deviation 45.8 fL (36.4-46.3); Red Blood Count 4.38 M/uL (4.20-5.40); White Blood Count 8.44 K/ul (4.8-10.8)
[2024-10-23 14:18] VITALS: TEMP 98.1
[2024-10-23] MEDS: ONDANSETRON INJ 2 MG/ML 2 ML VIAL ONE (14:20)
[2024-10-23 14:26] LABS: INR 1.1 (0.9-1.1); Partial Thromboplastin Ratio 0.8; Partial Thromboplastin Time 22 Seconds (21-31); Prothrombin Time 11.4 Seconds (9.0-12.0)
--- NOTE | 2024-10-23 14:27 | CT Scan Report ---
Clinical History: Decline in condition Technique: Axial computed tomography images were obtained of the brain from the vertex to the skull base without intravenous contrast. Comparison is made to the prior CT dated 11/05/2022 Findings: There is a large area of acute intra-parenchymal hemorrhage in the left frontal lobe, measuring 7.7 x 4.5 cm. There is surrounding cerebral edema. There is a moderate amount of acute interventricular hemorrhage. There is a small amount of acute subarachnoid hemorrhage involving the frontal and parietal lobes bilaterally. There is up to 7 mm of [id number] subfalcine herniation. There is no hydrocephalus No obvious mass lesion is seen on this noncontrast examination. The visualized portions of the orbits and paranasal sinuses appear unremarkable. The mastoid air cells appear clear Impression: 1. Large area of acute intraparenchymal hemorrhage in the left frontal lobe 2. Acute intraventricular hemorrhage 3. Acute subarachnoid hemorrhage 4. Subfalcine herniation of up to 7 mm ACT 112: Positive. There are findings on this exam that require communication between the performing entity and the patient following Patient Test Result Information Act ([place] ACT 112) guidelines. Electronically signed by Geoffrey Aviles 10-23-2024 2:27 PM
[2024-10-23 14:34] LABS: Alanine Aminotransferase 18 U/L (7-52); Albumin Globulin Ratio 1.2 (0.9-2); Albumin Level 4.1 gm/dl (3.4-5.0); Alkaline Phosphatase 99 U/L (34-104); Anion Gap 8 (3-11); Aspartate Aminotransferase 35 U/L (13-39); BUN Creatinine Ratio 14.7 (10-20); Blood Urea Nitrogen 15 mg/dl (6-23); Calcium 9.3 mg/dl (8.6-10.3); Carbon Dioxide 26 mmol/L (21-32); Chloride 107 mmol/L (98-107); Globulin 3.5 gm/dl (2.5-4.0); Glucose 142 mg/dl (70-99(Fasting)); Magnesium 1.7 mg/dl (1.7-2.4); Potassium 4.3 mmol/L (3.5-5.1); Sodium 141 mmol/L (136-145); Total Protein 7.6 gm/dl (6.0-8.3)
[2024-10-23 14:41] LABS: Troponin I High Sensitivity 18.4 pg/ml (0-14)
--- NOTE | 2024-10-23 15:32 | Emergency Department Note ---
Impression & Plan Intraparenchymal hematoma of brain, Brain herniation, Subarachnoid hemorrhage, Intraventricular hemorrhage ED Provider Note NAME: JANEL MALIK AGE: 83 SEX: F : 1940 ARRIVES VIA: Ambulance INFORMANT: Patient, ED PROVIDER(S): Shelli Garnica MD CHIEF COMPLAINT: Unresponsive HPI: This is a 83-year-old female presenting currently unresponsive. Patient was last seen normal at around 2 PM yesterday by her other son. Reportedly went to get groceries and was at her baseline. This morning found by the son at bedside who states she is completely nonverbal, not opening her eyes, not moving. EMS arrived, asked for a stroke alert and arrived here. Patient had vomited in the ambulance. ROS: Unable to obtain PHYSICAL EXAMINATION: General: Nonresponsive Head: Normocephalic and atraumatic Eyes: Normal inspection, does not track Ear, nose, throat: Normal external exam Neck: Supple Respiratory: lungs clear to auscultation bilaterally Cardiovascular: Regular rate/rhythm, no murmur GI: soft Extremities: Well-perfused Neuro: GCS 3 Skin: Warm, dry, and intact MEDICAL DECISION MAKING: This is an 83-year-old female presenting unresponsive. Patient currently has GCS of 3, with leftward facial and eye deviation. She does not want painful stimulation. She does occasionally have spontaneous movement of the left upper lower extremity without purpose. Flaccid right side. Did not follow commands. Does not open eyes to command Or pain. - Initially patient was a stroke alert going directly to CAT scan. Medic did stop in the emergency department due to emesis and securing the airway. - At this time patient is breathing spontaneously, has normal oxygen saturations. Based on clinical presentation concern for severe ischemic stroke versus intracranial hemorrhage. - Patient taken to CT imaging first, shows a large intraparenchymal hemorrhage with subarachnoid hemorrhage and intraventricular extension. There is subfalcine herniation, 7 mm. - I did advise family of this finding and the likely nonviability of this brain bleed. Initially continued stroke alert and with stroke neurology, Dr Buckley, who states that the neurosurgical issue. -Discussed care with neurosurgeon at [facility], Dr Guzman. Discussed the imaging results, size of intraparenchymal hemorrhage, herniation size. He does mention that based on age and this CT imaging, patient would be nonsurgical and nonsurvivable. -I made this finding apparent to the family members, now the other son who is here, as well as the [id number]'s. -They are comfortable proceeding further with comfort measures only. Differential diagnosis: Intracranial hemorrhage, ischemic stroke, intoxication Independent History obtained from: 2 different sons as well as [id number] Diagnostics interpreted by me: ECG: None Cardiac Monitoring: An order was placed for continuous cardiac monitoring. The monitor shows a rate of 56 with sinus rhythm. Critical Care Note: I have personally spent 45 minutes of critical care time in the direct management of this patient. This includes bedside care, interpretation of diagnostic studies, and testing, discussion with consultants, patient, and family members, and other required patient management activities. This 45 minutes is in excess of all separately billable procedures. 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 Seasonal allergies S/P CABG (coronary artery bypass graft) Lumbar degenerative disc disease Recurrent pancreatitis Anemia (Chronic) CAD (coronary artery disease) (Chronic) CKD (chronic kidney disease) stage 3, GFR 30-59 ml/min (Chronic) Chronic rhinitis (Chronic) Glaucoma (Chronic) History of colonic polyps (Chronic) Hypercholesterolemia (Chronic) Hypertension (Chronic) Osteoarthritis of knee (Chronic) Osteopenia after menopause (Chronic) Poor balance (Chronic) Reflex incontinence (Chronic) Vitamin D deficiency Urge and stress incontinence (Chronic) 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) Chronic constipation (Chronic) Acid reflux (Chronic) Paresthesia of lower extremity Medical History (Updated 10/23/24 @ 18:20 by Shelli Garnica MD) Spinal stenosis, 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 minimal AP diameter=3.58mm Bladder spasms Syncope Speech impairment PT REPORTS SOMETIMES HAS TROUBLE FINDING WORDS, STARTED 1 YR AGO - HAS DISCUSSED WITH PCP Environmental allergies Pancreatitis resolved Obesity CKD (chronic kidney disease) STAGE III Glaucoma Hiatal hernia CAD (coronary artery disease) RCA 75% by cath 1996 Bradycardia CHRONIC/ASYMPTOMATIC ON BETA BRADY; BASELINE HR 40'S-50'S GERD (gastroesophageal reflux disease) CONTROLLED Osteoarthritis Hx of myocardial infarction 1995- MEDICAL [employer]NAGEMENT Hyperlipidemia Hypertension Surgical History Hx of cataract extraction S/P epidural steroid injection History of carpal tunnel release right History of coronary artery bypass graft pt denies, states never had this S/P laparoscopic cholecystectomy (06/09/19) Laparoscopic Cholecystectomy with Cholangiogram Dr. Diaz 06/09/19 History of anesthesia reaction VERTIGO WHEN TRYING TO COME OUT OF ANESTHESIA FOR R TKA ([facility]) "HARD TIME WAKING UP" WITH L TKA ([facility]--no record of any complications) History of total right knee replacement (TKR) Hx of colonoscopy History of total knee replacement LEFT TKA= 04/11/15= SAB X 2 ATTEMPTS L4/L5 U/S ASSIST + PNB AT [facility] Hx of tonsillectomy Hx of dilation and curettage Hx of cardiac cath 1996, NO STENT. RCA 75%. no caths since Hx of oral surgery S/P TEETH EXTRACTIONS Hx of tubal ligation Family History Grandmother Family history of diabetes mellitus Father Myocardial infarction Cancer lung cancer Brother Myocardial infarction Cancer bladder CA Uncle Family hx of colon cancer Sister Breast cancer Other Heart disease Hypertension No family history of adverse response to anesthesia No family history of bleeding disorder Denies family history of Colon cancer Ovarian cancer Prostate cancer Social History Smoking Status: Never smoker Second Hand Exposure: No; Do You Dip or Chew Tobacco: No; Hx Alcohol Use: No Hx Substance Use: No Preferred Language: [place] Communication Ability: Unable Communication Ability Comment: TROUBLE FINDING WORDS SOMETIMES/SEE MED HX NOTE Visual Impairment: No Limitations Hearing Ability: Hard of Hearing Muffle Operator Required: No Beliefs That Will Affect Care: None marital status: / Current Living Situation: Alone current occupational status: retired Feels Safe at Home: Yes Childhood Exposure to Second-Hand Smoke: No Diet: regular caffeine: Yes (1-2 cups tea daily) Dental Care, Regularly: No Physical Activity Frequency: 1-2 Times per Week Seatbelt Use: always Sunscreen Use: Yes Do you think of yourself as: straight/heterosexual Gender Identity: Female Assistive Devices: Denture - Upper and Denture - Lower Allergies Allergies Allergy/AdvReac Type Severity Reaction Status Date / Time No Known Drug Allergies Allergy Unknown Verified 10/23/24 16:04 Home Meds Home Medications Medication Instructions Recorded Confirmed multivitamin (One Daily Essential 1 tab PO QAM 02/17/19 10/23/24 tablet) timolol 0.5 % eye drops 2 drp ophthalmic (eye) BID 05/19/23 10/23/24 acetaminophen 325 mg tablet 650 mg PO QID PRN Pain 10/23/24 10/23/24 (Tylenol) aspirin 81 mg tablet,delayed 81 mg PO DAILY 10/23/24 10/23/24 release Previous Rx's Medication Instructions Recorded solifenacin 10 mg tablet 10 mg PO QAM #90 tabs 07/11/23 ipratropium bromide 21 mcg (0.03 1 spray intranasal DAILY PRN Nasal 10/21/23 %) nasal spray Congestion #90 mL atorvastatin 20 mg tablet (Lipitor) 20 mg PO HS #90 tabs 05/12/24 famotidine 40 mg tablet 40 mg PO QAM #90 tabs 07/22/24 meclizine 12.5 mg tablet 12.5 mg PO TID PRN dizziness #30 07/22/24 tabs ondansetron HCl 4 mg tablet 4 mg PO TID PRN nausea and 07/22/24 vomiting #30 tabs Results & Data (ED) Vital Signs Vital Signs - 24 hr 10/23/24 14:03 10/23/24 14:04 10/23/24 14:06 Temperature 36.7 C Temperature Source Oral Pulse Rate 69 69 Pulse Rate [Apical] Pulse Rate from SpO2 Sensor 70 Respiratory Rate 16 20 Blood Pressure 186/107 H Blood Pressure [Right Arm] Blood Pressure Mean 124 Blood Pressure Mean [Right Arm] Pulse Oximetry 95 99 Oxygen Delivery Method Room Air Sepsis Recent Fever Within 48 Hours No Sepsis New/Unexplained Change in Mental Status Yes Sepsis Action Taken by Nursing No Action Required 10/23/24 14:17 10/23/24 14:23 10/23/24 14:27 Temperature Temperature Source Pulse Rate 65 67 Pulse Rate [Apical] Pulse Rate from SpO2 Sensor 68 Respiratory Rate 18 Blood Pressure 189/66 H Blood Pressure [Right Arm] Blood Pressure Mean 124 Blood Pressure Mean [Right Arm] Pulse Oximetry 97 Oxygen Delivery Method Sepsis Recent Fever Within 48 Hours Sepsis New/Unexplained Change in Mental Status Sepsis Action Taken by Nursing 10/23/24 14:31 10/23/24 14:39 10/23/24 15:00 Temperature Temperature Source Pulse Rate 70 Pulse Rate [Apical] 73 Pulse Rate from SpO2 Sensor 68 Respiratory Rate 23 28 H Blood Pressure 141/70 H Blood Pressure [Right Arm] 162/89 H Blood Pressure Mean 104 Blood Pressure Mean [Right Arm] 113 Pulse Oximetry 100 99 Oxygen Delivery Method Room Air Sepsis Recent Fever Within 48 Hours Sepsis New/Unexplained Change in Mental Status Sepsis Action Taken by Nursing 10/23/24 15:00 10/23/24 15:01 Temperature Temperature Source Pulse Rate 73 Pulse Rate [Apical] Pulse Rate from SpO2 Sensor 73 Respiratory Rate 23 Blood Pressure 162/89 H Blood Pressure [Right Arm] Blood Pressure Mean 116 Blood Pressure Mean [Right Arm] Pulse Oximetry 100 Oxygen Delivery Method Sepsis Recent Fever Within 48 Hours Sepsis New/Unexplained Change in Mental Status Sepsis Action Taken by Nursing Laboratory Data 10/23/24 14:04 10/23/24 14:04 Lab Results 10/23/24 Range/Units 14:04 WBC 8.44 (4.8-10.8) K/ul RBC 4.38 (4.20-5.40) M/uL Hgb 13.9 (12.0-16.0) g/dl Hct 41.7 (37.0-47.0) % MCV 95.2 (80.0-100.0) fL MCH 31.7 (25.0-34.0) pg MCHC 33.3 (32.0-36.0) g/dL RDW Std Deviation 45.8 (36.4-46.3) fL RDW Coeff of Valorie 13.1 (11.5-14.5) % Plt Count 172 (130-400) K/uL MPV 9.6 (9.4-12.4) fL Immature Gran % (Auto) 0.2 % Neut % (Auto) 81.4 % Lymph % (Auto) 12.8 % [place] % (Auto) 5.5 % Eos % (Auto) 0.0 % Baso % (Auto) 0.1 % Neut # (Auto) 6.87 H (1.40-6.50) K/uL Lymph # (Auto) 1.08 L (1.20-3.40) K/uL [place] # (Auto) 0.46 (0.11-0.59) K/uL Eos # (Auto) 0.00 (0.00-0.50) K/uL Baso # (Auto) 0.01 (0.00-0.20) K/uL Immature Gran # (Auto) 0.02 (0.01-0.20) K/uL PT 11.4 (9.0-12.0) Seconds INR 1.1 (0.9-1.1) APTT 22 (21-31) Seconds PTT Ratio 0.8 Sodium 141 (136-145) mmol/L Potassium 4.3 (3.5-5.1) mmol/L Chloride 107 (98-107) mmol/L Carbon Dioxide 26 (21-32) mmol/L Anion Gap 8 (3-11) BUN 15 (6-23) mg/dl Creatinine 1.02 (0.6-1.2) mg/dl Est Cr Clr Drug Dosing Not Reportable eGFR 54.93 BUN/Creatinine Ratio 14.7 (10-20) Glucose 142 H (70-99(Fasting)) mg/dl Calcium 9.3 (8.6-10.3) mg/dl Magnesium 1.7 (1.7-2.4) mg/dl Total Bilirubin 1.0 (0.2-1.0) mg/dl AST 35 (13-39) U/L ALT 18 (7-52) U/L Alkaline Phosphatase 99 (34-104) U/L Troponin I High Sens 18.4 H (0-14) pg/ml Total Protein 7.6 (6.0-8.3) gm/dl Albumin 4.1 (3.4-5.0) gm/dl Globulin 3.5 (2.5-4.0) gm/dl Albumin/Globulin Ratio 1.2 (0.9-2) Blood Type A Positive Antibody Screen NEGATIVE Administered Medications Morphine Sulfate (Morphine Sulfate 2 Mg/Ml Carp) 2 mg IV Q4H PRN PRN Reason: Pain or Respiratory Distress Stop: 11/06/24 15:45 Last Admin: 10/23/24 16:30 Dose: 2 mg Documented By: SRAVANI Ondansetron HCl (Ondansetron Inj 2 Mg/Ml 2 Ml Vial) 4 mg IV Q4H PRN PRN Reason: Nausea &/or Vomiting Stop: 11/22/24 15:45 Last Admin: 10/23/24 16:58 Dose: 4 mg Documented By: SRAVANI Discontinued Medications Ondansetron HCl (Ondansetron Inj 2 Mg/Ml 2 Ml Vial) Confirm Administered Dose 4 mg .ROUTE .STK-MED ONE Stop: 10/23/24 14:05 Last Admin: 10/23/24 14:20 Dose: 4 mg Documented By: SAMI Imaging Data Radiologist's Impression: Head CT 10/23/24 13:57 Clinical History: Decline in condition Technique: Axial computed tomography images were obtained of the brain from the vertex to the skull base without intravenous contrast. Comparison is made to the prior CT dated 11/05/2022 Findings: There is a large area of acute intra-parenchymal hemorrhage in the left frontal lobe, measuring 7.7 x 4.5 cm. There is surrounding cerebral edema. There is a moderate amount of acute interventricular hemorrhage. There is a small amount of acute subarachnoid hemorrhage involving the frontal and parietal lobes bilaterally. There is up to 7 mm of [id number]-tl-[id number] subfalcine herniation. There is no hydrocephalus No obvious mass lesion is seen on this noncontrast examination. The visualized portions of the orbits and paranasal sinuses appear unremarkable. The mastoid air cells appear clear Impression: 1. Large area of acute intraparenchymal hemorrhage in the left frontal lobe 2. Acute intraventricular hemorrhage 3. Acute subarachnoid hemorrhage 4. Subfalcine herniation of up to 7 mm ACT 112: Positive. There are findings on this exam that require communication between the performing entity and the patient following Patient Test Result Information Act ([place] ACT 112) guidelines. Electronically signed by Geoffrey Aviles 10-23-2024 2:27 PM Discharge Plan Visit Data Chief Complaint: Stroke Alert Stated Complaint: STROKE ALERT ED Provider: Shelli Garnica Discharge Problem: Intraparenchymal hematoma of brain, Brain herniation, Subarachnoid hemorrhage, Intraventricular hemorrhage Patient Disposition: Admitted As Inpatient Discharge Instructions Interventions: ED Discharge Assessment Last Done: 10/23/24 17:18 Discharge Problem: Intraparenchymal hematoma of brain Qualifiers: Encounter type: initial encounter Laterality: left Loss of consciousness presence/duration: unknown LOC status Qualified Code(s): S06.32AA - Contusion and laceration of left cerebrum with loss of consciousness status unknown, initial encounter
--- NOTE | 2024-10-23 16:08 | History & Physical Report ---
Date of Service October 23, 2024 Assessment & Plan (1) Acute intracranial hemorrhage: Plan: Assessment: 1. Very large acute intracranial hemorrhage with subfalcine herniation up to 7 mm with acute intraventricular hemorrhage and acute subarachnoid hemorrhage. Devastating intracranial bleed. Nonsurvivable per neurosurgery at [facility]. We are admitting the patient for end-of-life care and comfort measures only. Comfort care pathway has been initiated. I discussed personally with the patient's registered nurse. As needed morphine. As needed Ativan. Vo catheter for comfort. We have discussed with family and nursing staff they witnessed any seizure activity to let us know we would certainly medicate her for seizure medication-probably Ativan. 2. Obtundation secondary to #1. 3. Other chronic medical conditions as described in past medical history. Plan: Comfort care pathway. As needed morphine. As needed Ativan. Instructed nursing staff and family to let me know if they feel the patient is in need of anything or if the family is in need of anything. Condition critical. Prognosis terminal. History of Present Illness Chief Complaint: Found on ground unresponsive Primary Care Provider: Radha Asher MD This is an 83-year-old female who lives at home alone independently. Her family spoke with her around 230 yesterday afternoon. They were unable to get a hold of her today they went to check on her at the house and she was found on the ground essentially unresponsive. She was transported to the ER for further evaluation and treatment and she was initiated as a stroke alert. CT of the brain showed a large area of acute intraparenchymal hemorrhage in the left frontal lobe with acute intraventricular hemorrhage with a acute subarachnoid hemorrhage with subfalcine herniation up to 7 mm. ER provider obtain consultation with neurosurgery at [facility]. Case and films were reviewed. It is their opinion that this is a nonsurvivable intracranial hemorrhage. Discussion with family was made and we have been asked admit the patient for end-of-life care and comfort measures. Allergies Allergy/AdvReac Type Severity Reaction Status Date / Time No Known Drug Allergies Allergy Unknown Verified 10/23/24 16:04 Home Medications Medication Instructions Recorded Confirmed Type multivitamin (One Daily Essential 1 tab PO QAM 02/17/19 10/23/24 History tablet) timolol 0.5 % eye drops 2 drp ophthalmic (eye) BID 05/19/23 10/23/24 History solifenacin 10 mg tablet 10 mg PO QAM #90 tabs 07/11/23 10/23/24 Rx ipratropium bromide 21 mcg (0.03 1 spray intranasal DAILY PRN Nasal 10/21/23 10/23/24 Rx %) nasal spray Congestion #90 mL atorvastatin 20 mg tablet (Lipitor) 20 mg PO HS #90 tabs 05/12/24 10/23/24 Rx famotidine 40 mg tablet 40 mg PO QAM #90 tabs 07/22/24 10/23/24 Rx meclizine 12.5 mg tablet 12.5 mg PO TID PRN dizziness #30 07/22/24 10/23/24 Rx tabs ondansetron HCl 4 mg tablet 4 mg PO TID PRN nausea and 07/22/24 10/23/24 Rx vomiting #30 tabs acetaminophen 325 mg tablet 650 mg PO QID PRN Pain 10/23/24 10/23/24 History (Tylenol) aspirin 81 mg tablet,delayed 81 mg PO DAILY 10/23/24 10/23/24 History release Past Med/Surg History Problem List (Updated 10/23/24 @ 16:06 by Omid Archuleta, PhD, DO) Acute intracranial hemorrhage Degenerative spondylolisthesis Scoliosis of lumbar region due to degenerative disease of spine in adult Lumbar spondylosis Degenerative joint disease of right hip History of total right knee replacement Right leg pain Memory changes Vestibulopathy Bladder spasm Bilateral tinnitus (Acute) Nausea (Acute) Vertigo (Acute) 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 Seasonal allergies S/P CABG (coronary artery bypass graft) Lumbar degenerative disc disease Recurrent pancreatitis Anemia (Chronic) CAD (coronary artery disease) (Chronic) CKD (chronic kidney disease) stage 3, GFR 30-59 ml/min (Chronic) Chronic rhinitis (Chronic) Glaucoma (Chronic) History of colonic polyps (Chronic) Hypercholesterolemia (Chronic) Hypertension (Chronic) Osteoarthritis of knee (Chronic) Osteopenia after menopause (Chronic) Poor balance (Chronic) Reflex incontinence (Chronic) Vitamin D deficiency Urge and stress incontinence (Chronic) 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) Chronic constipation (Chronic) Acid reflux (Chronic) Paresthesia of lower extremity Medical History (Updated 10/23/24 @ 16:06 by Omid Archuleta, PhD, DO) Spinal stenosis, 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 minimal AP diameter=3.58mm Bladder spasms Syncope Speech impairment PT REPORTS SOMETIMES HAS TROUBLE FINDING WORDS, STARTED 1 YR AGO - HAS DISCUSSED WITH PCP Environmental allergies Pancreatitis resolved Obesity CKD (chronic kidney disease) STAGE III Glaucoma Hiatal hernia CAD (coronary artery disease) RCA 75% by cath 1996 Bradycardia CHRONIC/ASYMPTOMATIC ON BETA BRADY; BASELINE HR 40'S-50'S GERD (gastroesophageal reflux disease) CONTROLLED Osteoarthritis Hx of myocardial infarction 1995- MEDICAL MANAGEMENT Hyperlipidemia Hypertension Surgical History Hx of cataract extraction S/P epidural steroid injection History of carpal tunnel release right History of coronary artery bypass graft pt denies, states never had this S/P laparoscopic cholecystectomy (06/09/19) Laparoscopic Cholecystectomy with Cholangiogram Dr. Diaz 06/09/19 History of anesthesia reaction VERTIGO WHEN TRYING TO COME OUT OF ANESTHESIA FOR R TKA ([facility]) "HARD TIME WAKING UP" WITH L TKA ([facility]--no record of any complications) History of total right knee replacement (TKR) Hx of colonoscopy History of total knee replacement LEFT TKA= 04/11/15= SAB X 2 ATTEMPTS L4/L5 U/S ASSIST + PNB AT [facility] Hx of tonsillectomy Hx of dilation and curettage Hx of cardiac cath 1996, NO STENT. RCA 75%. no caths since Hx of oral surgery S/P TEETH EXTRACTIONS Hx of tubal ligation Family History Grandmother Family history of diabetes mellitus Father Myocardial infarction Cancer lung cancer Brother Myocardial infarction Cancer bladder CA Uncle Family hx of colon cancer Sister Breast cancer Other Heart disease Hypertension No family history of adverse response to anesthesia No family history of bleeding disorder Denies family history of Colon cancer Ovarian cancer Prostate cancer Social History Smoking Status: Unknown if ever smoked Second Hand Exposure: No; Do You Dip or Chew Tobacco: No; Hx Alcohol Use: No Hx Substance Use: No Preferred Language: Faroese Communication Ability: Impaired Communication Ability Comment: TROUBLE FINDING WORDS SOMETIMES/SEE MED HX NOTE Visual Impairment: No Limitations Hearing Ability: Hard of Hearing Yarder Operator Required: No Beliefs That Will Affect Care: None marital status: / Current Living Situation: Alone current occupational status: retired Feels Safe at Home: Yes Childhood Exposure to Second-Hand Smoke: No Diet: regular caffeine: Yes (1-2 cups tea daily) Dental Care, Regularly: No Physical Activity Frequency: 1-2 Times per Week Seatbelt Use: always Sunscreen Use: Yes Do you think of yourself as: straight/heterosexual Gender Identity: Female Assistive Devices: Cane, Denture - Upper, Denture - Lower and Glasses Review of Systems Review of Systems: A 10 point review of system was obtained and unless otherwise stated here or in history of present illness are negative and noncontributory to chief complaint. Physical Exam Physical Exam: In General: In general 83-year-old female who is obtunded/unresponsive. She is accompanied by multiple family members including 2 sons, 2 [id number]'s, and her grandson. HEENT: Normocephalic atraumatic pupils appear to demonstrate horizontal nystagmus. NECK: no lymphadenopathy no thyromegaly no carotid bruits no JVD no masses. HEART: Regular rate and rhythm I do not appreciate any ectopy or rub. Faint 2 out of 6 systolic ejection murmur. Sternotomy scar noted LUNGS: Very diminished and mildly rhonchorous. Apparently the patient had an episode of emesis and possible aspiration in the ER. ABDOMEN: Soft, positive bowel sounds. No appreciable organomegaly. EXTREMITIES: Intact, no peripheral cyanosis, clubbing or edema. NEUROLOGICAL: As above, the patient's obtunded/nonresponsive. Results & Data Results & Data Vital Signs (Past 12 Hours) Vital Signs Temp Pulse Pulse Resp BP Pulse Ox O2 Del Method 10/23/24 15:00 73 28 H 162/89 H 99 Room Air 10/23/24 14:23 65 10/23/24 14:04 36.7 C 69 16 95 Room Air Code Status & VTE Plan Code Status DNR/DNI-comfort measures only. Discussed at length with the patient's family at the bedside VTE Prophylaxis Plan VTE Prophylaxis will be ordered: No PG Care Time/CCT Total # of Minutes Spent Total Time Spent with Patient: Total time spent is greater than 50% in coordination of care (as documented) at patient's floor/unit and/or counseling patient: Coding Level of Care Code 42874 INT INP/OBS CARE 3/75MIN Diagnoses Acute intracranial hemorrhage I62.9
[2024-10-23] MEDS: MoRPHine SULFATE 2 MG/ML CARP IV PRN (16:30)
[2024-10-23] MEDS: ONDANSETRON INJ 2 MG/ML 2 ML VIAL IV PRN (16:58)
[2024-10-23 17:19] VITALS: BP 157/73; PULSE 56
[2024-10-23 17:49] VITALS: O2SAT 96
[2024-10-24] MEDS: LORazepam 2 MG/1 ML VIAL IV PRN (11:45)
--- NOTE | 2024-10-24 13:10 | Electrocardiogram Report ---
Test Reason : Blood Pressure : */* mmHG Vent. Rate : 66 BPM Atrial Rate : 66 BPM P-R Int : 208 ms QRS Dur : 68 ms QT Int : 442 ms P-R-T Axes : 77 73 74 degrees QTcB Int : 463 ms Normal sinus rhythm Septal infarct (cited on or before 20-Aug-2021) Abnormal ECG When compared with ECG of 05-Nov-2022 20:05, IA interval has decreased Questionable change in initial forces of Septal leads Confirmed by Merrick Lang ([id number]) on 10/24/2024 1:10:01 PM Referred By: REFERRED SELF Confirmed By: Merrick Lang
[2024-10-24] MEDS ORDERED: HYDROmorphone INJ 0.5 MG/0.5 ML SYR IV PRN (14:16)
[2024-10-24] MEDS ORDERED: ATROPINE SULFATE 1% OP SOLN 5 ML BTL SL PRN (14:17)
[2024-10-24] MEDS ORDERED: HYOSCYAMINE SULFATE 0.125 MG TAB SL PRN (14:17)
--- NOTE | 2024-10-24 14:20 | Hospitalist Progress Note ---
Date of Service October 24, 2024 Assessment & Plan (1) Comfort measures only status: (2) Palliative care patient: (3) Acute intracranial hemorrhage: (4) Acute spontaneous subarachnoid intracranial hemorrhage: (5) Acute spontaneous intraventricular intracranial hemorrhage: (6) Brain herniation: (7) Acute metabolic encephalopathy: (8) Stage 3b chronic kidney disease: (9) CAD (coronary artery disease): (10) Hx of myocardial infarction: (11) Hypertension: Plan 83yo female with history of CAD, MA, HTN, hyperlipidemia, CKD stage 3b. Found down on the floor at her house by family and was obtunded. Upon presentation her CT head showed severe intraparenchymal hemorrhage over the left frontal lobe, b/l frontal/parietal subarachnoid hemorrhage, and intraventricular hemorrhage. There was evidence of midline shift/herniation and significant cerebral edema. Family elected to pursue comfort care measures instead of transfer to tertiary care center for neurosurgical intervention. 1. patient with grimacing on exam (when I palpated her abdomen). Will assume she has some pain in the abdomen. Change morphine to IV dilaudid (family feels that morphine may have contributed to vomiting yesterday). 2. ativan prn agitation/restlessness. 3. order atropine drops, robinul, etc for secretions. 4. if any urinary retention attempt gibbs catheter placement again (unsuccessful with such last pm; now has juan). 5. satellite television installer to visit this afternoon. Support given to family. Admission and Anticipated Discharge Date Admission Date: October 23, 2024 Subjective patient nearly obtunded some movement of her L arm and L leg but nothing purposeful occasional opening of eyes per family seemed restless earlier today -- ativan IV given with improvement numerous family at bedside including the pt's sister, 2 sons, and a son-in-law satellite television installer to come by later today Review of Systems Review of Systems: Unobtainable due to reduced consciousness Physical Exam Physical Exam: gen - quiet tachypnea but no distress, obtunded neck - no JVD mouth - MM dry heart - RRR, s1 s2, no murmur lungs - CTA b/l abd - soft, ND, I cannot palpate her bladder; she grimaced when I palpated the central abdomen ext - warm, pulses feet 2+, no edema neuro - not moving the right arm or leg; moving left arm/leg spontaneously Results & Data Results & Data Vital Signs (Past 12 Hours) Vital Signs O2 Del Method 10/24/24 07:40 Room Air PG Care Time/CCT Total # of Minutes Spent Total Time Spent with Patient: Total time spent is greater than 50% in coordination of care (as documented) at patient's floor/unit and/or counseling patient: Coding Level of Care Code 55436 SUB INP/OBS CARE 07/24MIN Diagnoses Comfort measures only status Z51.5 Palliative care patient Z51.5 Acute intracranial hemorrhage I62.9 Acute spontaneous subarachnoid intracranial hemorrhage I60.9 Acute spontaneous intraventricular intracranial hemorrhage I61.5 Brain herniation G93.5 Acute metabolic encephalopathy G93.41 Stage 3b chronic kidney disease N18.32 CAD (coronary artery disease) I25.10 Hx of myocardial infarction I25.2 Hypertension I10
[2024-10-24] MEDS: HYDROmorphone INJ 0.5 MG/0.5 ML SYR IV PRN (14:25)
[2024-10-24 17:02] VITALS: RESP 20
[2024-10-25] MEDS: GLYCOPYRROLATE 0.2 MG/ML VIAL IV PRN (15:41)
--- NOTE | 2024-10-25 16:51 | Hospitalist Progress Note ---
Date of Service October 25, 2024 Assessment & Plan (1) Comfort measures only status: (2) Palliative care patient: (3) Acute intracranial hemorrhage: (4) Acute spontaneous subarachnoid intracranial hemorrhage: (5) Acute spontaneous intraventricular intracranial hemorrhage: (6) Brain herniation: (7) Acute metabolic encephalopathy: (8) Stage 3b chronic kidney disease: (9) CAD (coronary artery disease): (10) Hx of myocardial infarction: (11) Hypertension: Plan 83yo female with history of CAD, CA, HTN, hyperlipidemia, CKD stage 3b. Found down on the floor at her house by family and was obtunded. Upon presentation her CT head showed severe intraparenchymal hemorrhage over the left frontal lobe, b/l frontal/parietal subarachnoid hemorrhage, and intraventricular hemorrhage. There was evidence of midline shift/herniation and significant cerebral edema. There was no evidence of head trauma on exam or imaging thus this event was likely a spontaneous hemorrhage. Family elected to pursue comfort care measures instead of transfer to tertiary care center for neurosurgical intervention. Family made this decision at time of admission in the ER. 1. cont IV dilaudid prn pain or air hunger. 2. cont IV ativan prn agitation/restlessness. 3. atropine drops, robinul, etc for secretions, if needed. 4. if any urinary retention attempt gibbs catheter placement again (unsuccessful with such 2 nights ago; has purewick at this time). Support given to family. Family confirmed that the inventory auditor paid them a visit. Family has asked for estimate of time frame of when she might pass - very difficult to say, but the process may take multiple days. Admission and Anticipated Discharge Date Admission Date: October 23, 2024 Subjective no events overnight remains obtunded not opening eyes spontaneously occasionally will flex her arm and try to touch her head - headache pain? no seizure activity no agitation minimal urine output Review of Systems Review of Systems: Unobtainable due to reduced consciousness Physical Exam Physical Exam: gen - obtunded, no response to voice, did not move during the exam neck - no JVD mouth - MM dry heart - RRR, s1 s2, no murmur lungs - CTA b/l, decreased BS bases b/l abd - soft, ND, NT today, BS+ ext - warm, pulses feet 2+, no edema neuro - not moving the right arm or leg; moved the left arm (flexed the arm) once or twice during the visit PG Care Time/CCT Total # of Minutes Spent Total Time Spent with Patient: Total time spent is greater than 50% in coordination of care (as documented) at patient's floor/unit and/or counseling patient: Coding Level of Care Code 98847 SUB INP/OBS CARE 07/24MIN Diagnoses Comfort measures only status Z51.5 Palliative care patient Z51.5 Acute intracranial hemorrhage I62.9 Acute spontaneous subarachnoid intracranial hemorrhage I60.9 Acute spontaneous intraventricular intracranial hemorrhage I61.5 Brain herniation G93.5 Acute metabolic encephalopathy G93.41 Stage 3b chronic kidney disease N18.32 CAD (coronary artery disease) I25.10 Hx of myocardial infarction I25.2 Hypertension I10
[2024-10-26] MEDS: LORazepam 2 MG/1 ML VIAL IV PRN (05:15)
--- NOTE | 2024-10-26 15:54 | Hospitalist Progress Note ---
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 CHILD CARE COOK (2) Acute metabolic encephalopathy: Plan: Present on admission due to CVA. The patient is now unresponsive (3) Stage 3b chronic kidney disease: Plan: No further testing or monitoring. CHILD CARE COOK (4) CAD (coronary artery disease): Plan: No further testing or monitoring. CHILD CARE COOK (5) Hypertension: Plan: No further monitoring. CHILD CARE COOK Plan CHILD CARE COOK status. Supportive care Admission and Anticipated Discharge Date Admission Date: October 23, 2024 Subjective The patient remains unresponsive. Family in attendance. CHILD CARE COOK status after hemorrhagic CVA causing intracranial hemorrhage and herniation Review of Systems 2 Review of Systems: The patient is unresponsive and unable to answer any questions regarding review of systems at this time Physical Exam 2 Physical Exam: General-unresponsive. Afebrile HEENT-head atraumatic and normocephalic, pupils equal and reactive to light Neck-no lymphadenopathy or thyromegaly, trachea midline Chest-scattered bilateral rhonchi from retained secretions anteriorly. No inspiratory rales. No wheezing i Cardiac-regular rate and rhythm, normal S1 and S2 Abdomen-hypoactive bowel sounds but present. No distention. Extremities-no cyanosis, clubbing, or edema Neuro-unresponsive. Cannot assess Psych-unresponsive. Cannot assess Results & Data Results & Data Laboratory Results 10/23/24 14:04 10/23/24 14:04 PG Care Time/CCT Total # of Minutes Spent Total Time Spent with Patient: Total time spent is greater than 50% in coordination of care (as documented) at patient's floor/unit and/or counseling patient: Coding Level of Care Code 15936 SUB INP/OBS CARE 2/35MIN Diagnoses Acute intracranial hemorrhage I62.9 Acute metabolic encephalopathy G93.41 Stage 3b chronic kidney disease N18.32 CAD (coronary artery disease) I25.10 Hypertension I10
--- NOTE | 2024-10-27 14:21 | Hospitalist Progress Note ---
Date of Service October 27, 2024 Assessment & Plan (1) Acute intracranial hemorrhage: Plan: Hemorrhagic CVA left frontal area with intracranial hemorrhage and subsequent herniation. DETAIL SERGEANT (2) Acute metabolic encephalopathy: Plan: Present on admission due to CVA. The patient is now unresponsive (3) Stage 3b chronic kidney disease: Plan: No further testing or monitoring. DETAIL SERGEANT (4) CAD (coronary artery disease): Plan: No further testing or monitoring. DETAIL SERGEANT (5) Hypertension: Plan: No further monitoring. DETAIL SERGEANT Plan DETAIL SERGEANT status. Supportive care Admission and Anticipated Discharge Date Admission Date: October 23, 2024 Subjective The patient remains unresponsive. Family is at the bedside. She has occasional left upper extremity tremors but no evidence of systemic seizure activity. Review of Systems Review of Systems: The patient is unresponsive and unable to answer any questions regarding review of systems at this time Physical Exam Physical Exam: General-unresponsive. Afebrile HEENT-head atraumatic and normocephalic, pupils equal and reactive to light Neck-no lymphadenopathy or thyromegaly, trachea midline Chest-scattered bilateral rhonchi from retained secretions anteriorly. No inspiratory rales. No wheezing i Cardiac-regular rate and rhythm, normal S1 and S2 Abdomen-hypoactive bowel sounds but present. No distention. Extremities-no cyanosis, clubbing, or edema Neuro-unresponsive. Cannot assess Psych-unresponsive. Cannot assess PG Care Time/CCT Total # of Minutes Spent Total Time Spent with Patient: Total time spent is greater than 50% in coordination of care (as documented) at patient's floor/unit and/or counseling patient: Coding Level of Care Code 48726 SUB INP/OBS CARE 2/35MIN Diagnoses Acute intracranial hemorrhage I62.9 Acute metabolic encephalopathy G93.41 Stage 3b chronic kidney disease N18.32 CAD (coronary artery disease) I25.10 Hypertension I10
--- NOTE | 2024-10-28 14:59 | Hospitalist Progress Note ---
Date of Service October 28, 2024 Assessment & Plan (1) Acute intracranial hemorrhage: Plan: Hemorrhagic CVA left frontal area with intracranial hemorrhage and subsequent herniation. HEALTH CARE CONSULTANT (2) Acute metabolic encephalopathy: Plan: Present on admission due to CVA. The patient is now unresponsive (3) Stage 3b chronic kidney disease: Plan: No further testing or monitoring. HEALTH CARE CONSULTANT (4) CAD (coronary artery disease): Plan: No further testing or monitoring. HEALTH CARE CONSULTANT (5) Hypertension: Plan: No further monitoring. HEALTH CARE CONSULTANT Plan HEALTH CARE CONSULTANT status. Supportive care Admission and Anticipated Discharge Date Admission Date: October 23, 2024 Subjective No significant changes. Family is in attendance Review of Systems Review of Systems: The patient is unresponsive and unable to answer any questions regarding review of systems at this time Physical Exam Physical Exam: General-unresponsive. Afebrile HEENT-head atraumatic and normocephalic, pupils equal and reactive to light Neck-no lymphadenopathy or thyromegaly, trachea midline Chest-scattered bilateral rhonchi from retained secretions anteriorly. No inspiratory rales. No wheezing i Cardiac-regular rate and rhythm, normal S1 and S2 Abdomen-hypoactive bowel sounds but present. No distention. Extremities-no cyanosis, clubbing, or edema Neuro-unresponsive. Cannot assess Psych-unresponsive. Cannot assess Results & Data Results & Data Vital Signs (Past 12 Hours) Vital Signs O2 Del Method 10/28/24 07:35 Room Air PG Care Time/CCT Total # of Minutes Spent Total Time Spent with Patient: Total time spent is greater than 50% in coordination of care (as documented) at patient's floor/unit and/or counseling patient: Coding Level of Care Code 77837 SUB INP/OBS CARE 2/35MIN Diagnoses Acute intracranial hemorrhage I62.9 Acute metabolic encephalopathy G93.41 Stage 3b chronic kidney disease N18.32 CAD (coronary artery disease) I25.10 Hypertension I10
--- NOTE | 2024-10-29 03:59 | Death Pronouncement Note ---
Date of Service October 29, 2024 Pronouncement Note Admission Date Admission Date: October 23, 2024 Contributing Factors (1) Acute intracranial hemorrhage: (2) Acute metabolic encephalopathy: (3) Stage 3b chronic kidney disease: (4) CAD (coronary artery disease): (5) Hypertension: Summary Additional details: I was called to pronounce the of Ciera Aguirre : 1940 Upon entering the room, the patient was found to be in a terminal state. Patient was unresponsive to verbal and tactile stimuli. Patient unresponsive to corneal and pupillary reflexes. On cardiopulmonary exam, no carotid or radial pulses found and pt without spontaneous heart tones or respirations. Time of was pronounced by me on 10/29/2024 at 3:49 Attending physician was notified. Next of kin was at bedside Additional Data Attending physician: Jarrod Wan MD
--- NOTE | 2024-10-29 09:52 | Discharge Summary ---
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 DIGITAL MARKETING ASSISTANT (2) Acute metabolic encephalopathy: Present on admission due to CVA. The patient is now unresponsive (3) Stage 3b chronic kidney disease: No further testing or monitoring. DIGITAL MARKETING ASSISTANT (4) CAD (coronary artery disease): No further testing or monitoring. DIGITAL MARKETING ASSISTANT (5) Hypertension: No further monitoring. DIGITAL MARKETING ASSISTANT Plan The patient with family in attendance at 3:49 AM on October 29 Admission HPI Per Admitting Provider This is an 83-year-old female who lives at home alone independently. Her family spoke with her around 230 yesterday afternoon. They were unable to get a hold of her today they went to check on her at the house and she was found on the ground essentially unresponsive. She was transported to the ER for further evaluation and treatment and she was initiated as a stroke alert. CT of the brain showed a large area of acute intraparenchymal hemorrhage in the left frontal lobe with acute intraventricular hemorrhage with a acute subarachnoid hemorrhage with subfalcine herniation up to 7 mm. ER provider obtain consultation with neurosurgery at [facility]. Case and films were reviewed. It is their opinion that this is a nonsurvivable intracranial hemorrhage. Discussion with family was made and we have been asked admit the patient for end-of-life care and comfort measures. Discharge Exam Not applicable Discharge Plan Discharge Items Patient Disposition: Other Date/Time: 10/29/24 03:45 Hospital Stay Data Consultations 10/23/24 15:44 ED Decision to Admit Stat Diagnostic Imagining Performed 10/23/24 13:57 CT head/brain wo con Stat Total Time Total Time Spent Total Time Spent (In Minutes): 30 minutes Coding Level of Care Code 23763 IN/OBS DISCH 30 MIN/LESS Diagnoses Acute intracranial hemorrhage I62.9 Acute metabolic encephalopathy G93.41 Stage 3b chronic kidney disease N18.32 CAD (coronary artery disease) I25.10 Hypertension I10
== END 2024-10-29 09:09 | disposition expired | DRG 951 ==
LOC: ED 13:58 → 3E 15:48 → SUATTDRO 15:48 → 3E 17:18